=== PATIENT | male | born 1945 | race Two or more races ===

== ENCOUNTER 2024-07-08 12:10 | Inpatient (IN) | payer MEDICARE ==
[~2024-07-08] VITALS: Ht 170.2 cm; Wt 71.6 kg
--- NOTE | 2024-07-08 13:01 | ED.PDOC ---
History of Present Illness(SKN HPI Comments 79 y.o male with PMH of DM, HTN and colon cancer, presents to the ED for an evaluation of a wound check. 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 Daughter reports patient was seen by steam conditioner filling 2 days ago and was placed on antibiotics but states no further progressive care was instated yet. Patient has a home health nurse who came by today and recommended patient to come into the ED for further wound management. Patient presents with new ulcer to right 2-3rd toes, has yellow discharge with discoloration to the dorsum region. Patient complains of 6/10 pain to the whole right foot associated with swelling. No fever or chills reported. Chief Complaint: Wound Check Time Seen by MD: 12:36 History of Present Illness: Nurses Notes, Medications, Allergies Allergies: Coded Allergies: NO KNOWN ALLERGIES (Unverified , 07/08/24) Information Source: Patient, Relative (daughter ) Mode of Arrival: Wheelchair Severity: Moderate Timing: Came on: Gradually Duration: Since onset Location: Foot (right ) Mechanism: Preceding Wound Wound Type: Other Tetanus: UTD History of: Diabetes Associated Signs and Symptoms: Swelling, Pain, Other (right foot discoloration ) Past Medical History PAST MEDICAL HISTORY: Cancer (colon ), DM, HTN Family History Family History: Reviewed,noncontributory to illness Social History Smoker: Non-Smoker Alcohol: Denies ETOH Use Drugs: Denies Drug Use Lives In: Home Constitutional: denies: chills, diaphoresis, fatigue, fever, malaise, sweats, weakness, others EENTM: denies: blurred vision, double vision, ear bleeding, ear discharge, ear drainage, ear pain, ear ringing, eye pain, eye redness, hearing loss, mouth pain, mouth swelling, nasal discharge, nose bleeding, nose congestion, nose pain, photophobia, tearing, throat pain, throat swelling, voice changes, others Respiratory: denies: cough, hemoptysis, orthopnea, SOB at rest, shortness of breath, SOB with excertion, stridor, wheezing, others Cardiovascular: denies: chest pain, dizzy spells, diaphoresis, Dyspnea on exer tion, edema, irregular heart beat, left arm pain, lightheadedness, palpitations, PND, syncope, others Gastrointestinal: denies: abdomen distended, abdominal pain, blood streaked bowels, constipated, diarrhea, dysphagia, difficulty swallowing, hematemesis, melena, nausea, poor appetite, poor fluid intake, rectal bleeding, rectal pain, vomiting, others Genitourinary: denies: burning, dysuria, flank pain, frequency, hematuria, incontinence, penile discharge, penile sore, pain, testicle pain, testicle swelling, urgency, others Neurological: denies: dizziness, fainting, headache, left sided numbness, left sided weakness, numbness, paresthesia, pre-existing deficit, right sided numbness, right sided weakness, seizure, speech problems, tingling, tremors, weakness, others Musculoskeletal: denies: back pain, gout, joint pain, joint swelling, muscle pain, muscle stiffness, neck pain, others Integumetry: reports: wounds (right foot wound, discoloration ); denies: bruises, change in color, change in hair/nails, dryness, laceration, lesions, lumps, rash, others Allergic/Immunocompromised: denies: Difficulty Healing, Frequent Infections, Hives, Itching, others Hematologic/Lymphatic: denies: anemia, blood clots, easy bleeding, easy bruising, swollen glands, others Endocrine: denies: excessive hunger, excessive sweating, excessive thirst, excessive urination, flushing, intolerance to cold, intolerance to heat, unexplained weight gain, unexplained weight loss, others Psychiatric: denies: anxiety, bipolar disorder, depression, hopeless, panic disorder, schizophrenia, sleepless, suicidal, others All Other Systems: Reviewed and Negative Physical Exam General Appearance: Moderate Distress HEENT: Normal ENT Inspection, Pharynx Normal, TMs Normal Neck: Full Range of Motion, Non-Tender, Normal, Normal Inspection Respiratory: Chest Non-Tender, Lungs Clear, No Accessory Muscle Use, No Respiratory Distress, Normal Breath Sounds Cardiovascular: No Edema, No JVD, No Murmur, No Gallop, Normal Peripheral Pulses, Regular Rate/Rhythm Breast Exam: Deferred Gastrointestinal: No Organomegaly, Non Tender, No Pulsatile Mass, Normal Bowel Sounds, Soft Genitalia: Deferred Pelvic: Deferred Rectal: Deferred Extremities: Decreased range of motion (Right lower extremity) Musculoskeletal : Apperance: Normal Neurologic: Alert, No Motor Deficits, No Sensory Deficits Cerebellar Function: NOT DONE Reflexes: NOT DONE Skin: Wounds (Right foot dark swollen) Peripheral Pulses: 3+ Radial (R), 3+ Radial (L) Lymphatic: No Adenopathy Was a procedure done? Was a procedure done?: No Differential Diagnosis (INTG) Differential Diagnosis: Cellulitis, Fracture Differential Diagnosis: Gangrene, Osteomyelitis Differential Diagnosis: Osteomyelitis X-Ray, Labs, Meds, VS Vital Signs Date Time Temp Pulse Resp B/P (MAP) Pulse Ox O2 Delivery O2 Flow Rate FiO2 07/08/24 13:25 98.1 83 17 113/63 (80) 96 98.1 07/08/24 13:25 83 17 96 Room Air* 0 21 07/08/24 12:38 97.8 58 16 127/56 (79) 99 Lab Test 07/08/24 13:45 Range/Units White Blood Count 9.8 4.4-10.8 10^3/uL Red Blood Count 3.43 L 4.5-5.90 10^6/uL Hemoglobin 11.6 L 13.5-17.5 g/dL Hematocrit 34.4 L 41.0-53.0 % Mean Corpuscular Volume 100.3 H 80.0-100.0 fL Mean Corpuscular Hemoglobin 33.9 H 28.0-32.0 pg Mean Corpuscular Hemoglobin Concent 33.8 32.0-36.0 g/dL Red Cell Distribution Width 21.1 H 11.8-14.3 % Platelet Count 110 L 140-450 10^3/uL Mean Platelet Volume 8.5 6.9-10.8 fL Neutrophils (%) (Auto) 81.0 H 37.0-80.0 % Lymphocytes (%) (Auto) 8.7 L 10.0-50.0 % Monocytes (%) (Auto) 9.6 0.0-12.0 % Eosinophils (%) (Auto) 0.2 0.0-7.0 % Basophils (%) (Auto) 0.5 0.0-2.0 % Neutrophils # (Auto) 7.9 1.6-8.6 10 ^3/uL Lymphocytes # (Auto) 0.8 0.4-5.4 10 ^3/uL Monocytes # (Auto) 0.9 0-1.3 10 ^3/uL Eosinophils # (Auto) 0 0-0.8 10 ^3/uL Basophils # (Auto) 0 0-0.2 10 ^3/uL Nucleated Red Blood Cells 0.0 % Platelet Estimate Decreased Anisocytosis (manual) Slight Macrocytosis Slight Sodium Level 133 L 136-145 mmol/L Potassium Level 3.7 3.5-5.1 mmol/L Chloride Level 100 98-107 mmol/L Carbon Dioxide Level 24 20-31 mmol/L Anion Gap 9 5-15 Blood Urea Nitrogen 20 9-23 mg/dL Creatinine 1.01 0.700-1.30 mg/dL Glomerular Filtration Rate Calc 75 >90 mL/min BUN/Creatinine Ratio 19.8 10.0-20.0 Serum Glucose 239 H 74-106 mg/dL Lactic Acid Level 3.0 *H 0.4-2.0 mmol/L Calcium Level 9.4 8.7-10.4 mg/dL Troponin I High Sensitivity 5 </=54 ng/L Current Medications Medications (Trade) Dose Ordered Sig/Jasen Route Start Time Stop Time Status Last Admin Sodium Chloride 1,000 ml @ 1,000 mls/hr Q1H ONCE IV 07/08/24 13:45 07/08/24 14:44 DC 07/08/24 13:50 Piperacillin Sod/ Tazobactam Sod 100 ml @ 100 mls/hr ONCE ONCE IV 07/08/24 13:45 07/08/24 14:44 DC 07/08/24 13:50 Patient alert. Right foot discoloration with swelling. Possible osteomyelitis. Vitals stable. Lactic acid elevated. Blood sugar elevated. Anion gap within normal limits. Establish intravenous access. Was given fluids. Was given Zosyn. Reviewed his history. Explained to the patient. Continue cardiac monitoring. Time of 1ST Reevaluation: 12:54 Reevaluation 1ST: Unchanged Patient Education/Counseling: Diagnosis, Treatment, Prognosis Family Education/Counseling: Diagnosis, Treatment, Prognosis Departure 1 Departure Time of Disposition: 15:46 Impression: Primary Impression: Osteomyelitis Qualified Codes: M86.9 - Osteomyelitis, unspecified Additional Impression: Sepsis Qualified Codes: A41.9 - Sepsis, unspecified organism Disposition: ADMITTED INPATIENT Admit to: Med Surg Condition: Guarded Critical Care Note Critical Care Time?: Yes (45 min-critical care time only) Stability Stability form required: No I personally scribed for ADIN VINSON MD ([email or web address]) on 07/08/24 at 13:01. Electronically submitted by Diana Ramirez ([facility]). ADIN VINSON MD Jul 08, 2024 13:01
[2024-07-08 13:25] VITALS: PULSE 83; RESP 17; O2SAT 96
[2024-07-08] MEDS: SODIUM CHLORIDE 0.9% 1,000 ML IV ONE ×3 (13:46→17:38)
[2024-07-08] MEDS: PIPERACILLIN-TAZOB 3.375GM 100 ML IV ONE (13:50)
[2024-07-08 14:14] LABS: Basophils # (auto) 0 10 ^3/uL (0-0.2); Basophils % (auto) 0.5 % (0.0-2.0); Eosinophils # (auto) 0 10 ^3/uL (0-0.8); Eosinophils % (auto) 0.2 % (0.0-7.0); Hematocrit 34.4 % (41.0-53.0); Hemoglobin 11.6 g/dL (13.5-17.5); Lymphocytes # (auto) 0.8 10 ^3/uL (0.4-5.4); Lymphocytes % (auto) 8.7 % (10.0-50.0); Mean Corpuscular Hemoglobin 33.9 pg (28.0-32.0); Mean Corpuscular Hgb Conc. 33.8 g/dL (32.0-36.0); Mean Corpuscular Volume 100.3 fL (80.0-100.0); Monocytes # (auto) 0.9 10 ^3/uL (0-1.3); Monocytes % (auto) 9.6 % (0.0-12.0); Neutrophils # (auto) 7.9 10 ^3/uL (1.6-8.6); Platelet Count (auto) 110 10^3/uL (140-450); Red Blood Cells 3.43 10^6/uL (4.5-5.90); White Blood Cell 9.8 10^3/uL (4.4-10.8)
[2024-07-08 14:15] LABS: Red Cell Distribution Width 21.1 % (11.8-14.3)
[2024-07-08 14:26] LABS: Chloride 100 mmol/L (98-107); Potassium 3.7 mmol/L (3.5-5.1)
[2024-07-08 14:27] LABS: Anion Gap 9 (5-15); Calcium 9.4 mg/dL (8.7-10.4); Carbon Dioxide 24 mmol/L (20-31)
[2024-07-08 14:32] LABS: BUN/Creatinine Ratio 19.8 (10.0-20.0); Blood Urea Nitrogen 20 mg/dL (9-23)
[2024-07-08 14:33] LABS: Anisocytosis Slight
[2024-07-08 14:34] LABS: Macrocytosis Slight; Platelet Estimate Decreased
[2024-07-08 14:35] LABS: Sodium 133 mmol/L (136-145)
[2024-07-08 14:36] LABS: Glucose 239 mg/dL (74-106)
--- NOTE | 2024-07-08 17:17 | DVH ---
EXAM: CT CT R FOOT WO CONTRAST INDICATION: osteo EXAM DATE: 07/08/2024 04:00 PM COMPARISON: None TECHNIQUE: Multiple axial CT images of the right foot were obtained using bone algorithm. Axial and c oronal reformatting was done. Bone and soft tissue windows were reviewed. Radiation Dose Information: CT Dose: CTDI volume is 7.75 mGy. Dose-length product is 197.56 mGy*cm Findings: Limited evaluation given noncontrast technique. There is no evidence of an acute fracture, dislocation, blastic, or lytic lesions. Mild degenerative changes of the midfoot. No radiopaque foreign bodies. Moderate atherosclerosis. Mild to moderate diffuse soft tissue edema. Small focal fluid collection adjacent to the 1st metatars al head. Impression: 1. Limited evaluation given noncontrast technique. 2. No osseous erosions or acute fractures. 3. Mild to moderate diffuse soft tissue edema. 4. Small focal fluid collection adjacent to the 1st metatarsal head.
--- NOTE | 2024-07-08 17:29 | DVH ---
Right Lower Extremity Arterial Duplex Clinical History: EVAL FLOW TO RLE HX OF ULCER Comparison: None Technique: Duplex Doppler evaluation including color Doppler and spectral/pulsed waveform analysis of the lower extremity arteries was performed. Findings: RIGHT: Peak systolic velocities are as follows: EXPEDITER SERVICE ORDER 90 cm/s Deep femoral 113 cm/s SFA proximal 63 cm/s SFA mid-portion 89 cm/s SFA distal 87 cm/s Popliteal 75 cm/s Posterior tibial 47 cm/s Anterior tibial 159 cm/s Dorsalis pedis 123 cm/s The waveforms are multiphasic with diastolic flow, with the exception of the anterior tibial, posteri or tibial, and dorsalis pedis arteries which are monophasic. Moderrate to marked atherosclerosis. IMPRESSION: 1. Approximately 30-49% stenosis of the anterior tibial artery. 2. Moderate to marked atherosclerosis. REFERENCE VALUES, [facility]) vascular Imaging Lab Criteria: Peak systolic velocity ranges (in cm/sec) are as follows: <150 cm/s - <20 % stenosis 150-200 cm/s - 20-49% stenosis 200-300 cm/s - 50-75% stenosis >300 cm/s -> 75% stenosis
--- NOTE | 2024-07-08 18:28 | DVHHP2 ---
History of Present Illness Reason for Visit: foot wound History of Present Illness 79-year-old male with a past medical history of hypertension diabetes and colon cancer comes to the ED for evaluation of stated wound check patient does have chronic wounds on his foot which he has been dealing with for a couple months comes to the ED for evaluation states that he saw his delivery table feeder 2 days ago and was given antibiotics on an outpatient basis get states that he is still having severe pain in the wound looks like it is filling worse patient was evaluated in the ED recommended for inpatient management and treatment Cardiovascular: HTN Endocrine: Diabetes Review of Systems Constitutional: Yes: Weakness; No: Fever, Chills, Sweats, Malaise, Other Eyes: No: Pain, Vision change, Conjunctivae inflammation, Eyelid inflammation, Other, Redness ENT: No: Ear pain, Ear discharge, Nose pain, Nose discharge, Nose congestion, Mouth pain, Mouth swelling, Throat pain, Throat swelling, Other Respiratory: No: Cough, Dry, Shortness of breath, SOB with excertion, Wheezing, Hemoptysis, Pleuritic Pain, Sputum, Wheezing, Other Cardiovascular: No: Chest Pain, Palpitations, Orthopnea, Paroxysmal Noc. Dyspnea, Edema, Lt Headedness, Other Gastrointestinal: No: Nausea, Vomiting, Abdominal Pain, Diarrhea, Constipation, Melena, Hematochezia, Other Genitourinary: No Dysuria, No Frequency, No Incontinence, No Hematuria, No Retention, No Other Musculoskeletal: leg pain, foot pain; No: other, neck pain, shoulder pain, arm pain, back pain, hand pain Skin: Rash, Lesions; No: Jaundice, Bruising, Other Neurological: No: Weakness, Numbness, Incoordination, Change in speech, Confusion, Seizures, Other Allergies: Coded Allergies: NO KNOWN ALLERGIES (Unverified , 07/08/24) Exam Vital Signs Vital Signs Date Time Temp Pulse Resp B/P (MAP) Pulse Ox O2 Delivery O2 Flow Rate FiO2 07/08/24 16:57 98.5 103 73 114/49 (70) 95 98.5 07/08/24 13:25 Room Air* 0 21 General Appearance: Alert, Oriented X3, Cooperative HEENT: Atraumatic, PERRLA Respiratory: Clear to auscultation, Normal air movement Cardiovascular: Regular rate, Normal S1, Normal S2 Abdominal: Normal bowel sounds, Soft Extremities: No clubbing, No cyanosis Skin: No rashes, No breakdown Neuro: Normal gait, Normal speech Psych/Mental Status: Mood NL Labs/Xrays Labs Test 07/08/24 16:30 07/08/24 13:45 Range/Units Lactic Acid Level 2.8 *H 0.4-2.0 mmol/L White Blood Count 9.8 4.4-10.8 10^3/uL Red Blood Count 3.43 L 4.5-5.90 10^6/uL Hemoglobin 11.6 L 13.5-17.5 g/dL Hematocrit 34.4 L 41.0-53.0 % Mean Corpuscular Volume 100.3 H 80.0-100.0 fL Mean Corpuscular Hemoglobin 33.9 H 28.0-32.0 pg Mean Corpuscular Hemoglobin Concent 33.8 32.0-36.0 g/dL Red Cell Distribution Width 21.1 H 11.8-14.3 % Platelet Count 110 L 140-450 10^3/uL Mean Platelet Volume 8.5 6.9-10.8 fL Neutrophils (%) (Auto) 81.0 H 37.0-80.0 % Lymphocytes (%) (Auto) 8.7 L 10.0-50.0 % Monocytes (%) (Auto) 9.6 0.0-12.0 % Eosinophils (%) (Auto) 0.2 0.0-7.0 % Basophils (%) (Auto) 0.5 0.0-2.0 % Neutrophils # (Auto) 7.9 1.6-8.6 10 ^3/uL Lymphocytes # (Auto) 0.8 0.4-5.4 10 ^3/uL Monocytes # (Auto) 0.9 0-1.3 10 ^3/uL Eosinophils # (Auto) 0 0-0.8 10 ^3/uL Basophils # (Auto) 0 0-0.2 10 ^3/uL Nucleated Red Blood Cells 0.0 % Platelet Estimate Decreased Anisocytosis (manual) Slight Macrocytosis Slight Sodium Level 133 L 136-145 mmol/L Potassium Level 3.7 3.5-5.1 mmol/L Chloride Level 100 98-107 mmol/L Carbon Dioxide Level 24 20-31 mmol/L Anion Gap 9 5-15 Blood Urea Nitrogen 20 9-23 mg/dL Creatinine 1.01 0.700-1.30 mg/dL Glomerular Filtration Rate Calc 75 >90 mL/min BUN/Creatinine Ratio 19.8 10.0-20.0 Serum Glucose 239 H 74-106 mg/dL Calcium Level 9.4 8.7-10.4 mg/dL Troponin I High Sensitivity 5 </=54 ng/L Assessment/Plan Assessment/Plan Admit to [facility] Suspected diabetic foot ulcer Rule out osteomyelitis CT scan of the foot was done lots of soft tissue swelling and edema present No acute bone lesions noted at this point in time IV antibiotics IV hydration Treat as advanced cellulitis wound care evaluation Possible need for podiatry evaluation As patient may need abscess drainage or debridement Uncontrolled diabetes type 2 Hyperglycemia Insulin sliding scale aggressive IV hydration Signs of acidosis no anion gap at this point in time but elevated lactate History of hypertension monitor for patient's blood pressure Continue home medications for blood pressure management If no home medications p.r.n. medications Plan discussed with: Patient My Orders Orders - ADRY BIRCH MD Procedure Category Date Status Time Vancomycin Per [facility] 07/08/24 Logged Pharmacy 18:30 Piperacillin-Tazob [facility] 07/08/24 Logged 3.375gm (Zosyn 3.375g 22:00 Glucose Blood [facility] 07/08/24 Logged (Accu-Chek Comfort 20:00 Insulin R (Human) [facility] 07/08/24 Logged (Insulin R) 20:00 Dextrose 50% Syringe [facility] 07/08/24 Logged 18:30 Admit ADMIT 07/08/24 Transmitted 18:21 Code Status CODE 07/08/24 Transmitted 18:21 Vital Signs [facility] 07/08/24 In Process 18:21 Review Orders With MACHO 07/08/24 In Process Adm. 18:21 Consistent DIET 07/08/24 Transmitted Carb(Ccho)Diabetes Dinner Sodium Chloride 0.9% [facility] 07/08/24 Logged 18:30 Alum & Mag [facility] 07/08/24 Logged Hydrox-Simethicone 18:30 Docusate Sodium [facility] 07/08/24 Logged Capsule (Colace 18:30 Acetaminophen Tablet [facility] 07/08/24 Logged (Tylenol Tablet) 18:30 Notify Md Of Changes [facility] 07/08/24 In Process From Base 18:21 Advance Directive [facility] 07/08/24 In Process 18:21 Basic Metabolic Panel LAB 07/09/24 Verified 04:00 Urinalysis LAB 07/08/24 Logged 18:21 Complete Blood Count LAB 07/09/24 Verified 04:00 Patient Condition ORDERS 07/08/24 Transmitted 18:21 Allergies [facility] 07/08/24 In Process 18:21 Hydrocodone-Acet [facility] 07/08/24 Logged 5/325mg Tab ([place] 18:30 Ondansetron Hcl [facility] 07/08/24 Logged (Zofran) 18:30 Morphine Sulfate [facility] 07/08/24 Logged Injection 18:30 Notify Md Of Changes [facility] 07/08/24 In Process From Base 18:21 Oxygen By Nasal RT 07/08/24 Transmitted Cannula 18:21 Problem List: (1) Diabetes mellitus type 2 with complications, uncontrolled (2) Osteomyelitis (3) Sepsis Date of Service: Jul 08, 2024 Billing Provider: ADRY BIRCH MD Common Visit Codes: [id number] INP/OBS CARE (HIGH) ADRY BIRCH MD Jul 08, 2024 18:28
[2024-07-08] MEDS ORDERED: DEXTROSE (50%) 50ML SYRG IV PRN (18:30)
[2024-07-08] MEDS ORDERED: ONDANSETRON HCL 4 MG/2 ML VIAL IV PRN (18:30)
[2024-07-08] MEDS ORDERED: VANCOMYCIN PER PHARMACY 0 MG IV SCH (18:30)
[2024-07-08] MEDS ORDERED: MAALOX PLUS or MAALOX 30 ML PO PRN (18:30)
[2024-07-08] MEDS: VANCOMYCIN 1.5GM/300ML 300 ML IV ONE (19:09)
[2024-07-08 19:15] VITALS: PULSE 94; RESP 17; O2SAT 98
[2024-07-08] MEDS: SODIUM CHLORIDE 0.9% 1,000 ML IV SCH (19:51)
[2024-07-08] MEDS: InsuLIN REG 1unit/0.01ml Soln (100units/ml) SC SCH (20:00)
[2024-07-08] MEDS: ACCU-CHEK COMFORT CURVE STRIP VI SCH (20:02)
[2024-07-08] MEDS: PIPERACILLIN-TAZOB 3.375GM 100 ML IV SCH (21:42)
[2024-07-08] MEDS: MORPHINE SULFATE INJ 2 MG/ml SYRG IV PRN (21:42)
[2024-07-08 21:51] LABS: Urine Bacteria None Seen /hpf (None Seen)
[2024-07-08 22:17] LABS: Urine Blood 1+ /uL (Negative); Urine Clarity Clear (Clear); Urine Color Yellow (Yellow); Urine Hyaline Cast FEW /lpf (0 - 2); Urine Mucus FEW (None Seen); Urine Protein, UAD 2+ (Negative); Urine Specific Gravity 1.028 (1.001-1.035); Urine Urobilinogen 3 mg/dL (Negative); Urine WBC 1 /hpf (0 - 3)
[2024-07-08 23:27] VITALS: BP 111/49; PULSE 85; RESP 17; TEMP 98.3; O2SAT 98
[2024-07-08 23:47] VITALS: BP 111/49; PULSE 85; RESP 17; TEMP 98.3; O2SAT 98
[2024-07-09] VITALS (7 sets, daily range): BP systolic 96–144; BP diastolic 53–77; PULSE 45–85; RESP 15–18; TEMP 97.7–98.8; O2SAT 97–99
[2024-07-09] MEDS ORDERED: LOSA-534 PO (00:05)
[2024-07-09] MEDS ORDERED: PERCOT PO (00:05)
[2024-07-09] MEDS ORDERED: ATOR20TA50 PO (00:05)
[2024-07-09] MEDS ORDERED: AMLO1TAB22 PO (00:05)
[2024-07-09] MEDS: VANCOMYCIN 750mg/150ml 150 ML IV SCH (05:11)
[2024-07-09 07:05] LABS: Basophils # (auto) 0 10 ^3/uL (0-0.2); Basophils % (auto) 0.4 % (0.0-2.0); Eosinophils # (auto) 0 10 ^3/uL (0-0.8); Eosinophils % (auto) 0.3 % (0.0-7.0); Hematocrit 31.4 % (41.0-53.0); Hemoglobin 10.7 g/dL (13.5-17.5); Lymphocytes # (auto) 1.1 10 ^3/uL (0.4-5.4); Lymphocytes % (auto) 12.9 % (10.0-50.0); Mean Corpuscular Hemoglobin 33.7 pg (28.0-32.0); Mean Corpuscular Volume 99.1 fL (80.0-100.0); Monocytes # (auto) 0.8 10 ^3/uL (0-1.3); Monocytes % (auto) 9.9 % (0.0-12.0); Neutrophils # (auto) 6.3 10 ^3/uL (1.6-8.6); Neutrophils % (auto) 76.5 % (37.0-80.0); Platelet Count (auto) 87 10^3/uL (140-450); Red Blood Cells 3.17 10^6/uL (4.5-5.90); Red Cell Distribution Width 20.7 % (11.8-14.3); White Blood Cell 8.2 10^3/uL (4.4-10.8)
[2024-07-09 07:15] LABS: Anion Gap 8 (5-15); Carbon Dioxide 22 mmol/L (20-31); Chloride 104 mmol/L (98-107); Potassium 3.8 mmol/L (3.5-5.1)
[2024-07-09 07:17] LABS: Calcium 8.5 mg/dL (8.7-10.4); Sodium 134 mmol/L (136-145)
[2024-07-09 07:21] LABS: BUN/Creatinine Ratio 18.1 (10.0-20.0); Blood Urea Nitrogen 13 mg/dL (9-23); Glucose 84 mg/dL (74-106)
[2024-07-09] MEDS: HYDROcodone-ACET 5/325MG TAB PO PRN (09:00)
[2024-07-09] MEDS: CEFEPIME 1GM/ 50ML 50 ML IV SCH (13:32)
--- NOTE | 2024-07-09 17:42 | DVH ---
EXAM: MRI MRI R FOOT WO CONTRAST HISTORY: rule out osteomyelitis COMPARISON: CT CT R FOOT WO CONTRAST on DOS: 07/08/24 TECHNIQUE: Multiplanar, multisequence MRI of the right foot was performed. FINDINGS: Bone marrow edema is seen in 2nd phalanges and metatarsal head. Mild bone marrow edema noted in the 1st metatarsal head. Diffuse subcutaneous edema noted surrounding the 2nd toe. No drainable fluid col lection noted. Chronic appearing marginal erosions are seen in the medial aspect of the 1st metatarsal head with cor ticated edges likely related to gout or hallux valgus deformity. There is mild 1st MTP joint osteoart hritis. No significant joint effusion. Severe fluid distention of the extensor hallucis longus tendon sheath. Mild fluid distention of the flexor hallucis tendon sheath noted. Moderate fluid distention of the 2nd extensor and flexor tendon sheaths. There is fluid distention of the flexor tendon sheaths in midfoot nodular thickening and sig nal alteration of the plantar fascia in hindfoot near calcaneal insertion measuring approximately 1.6 cm in length , 0.7 cm in craniocaudal and 1 cm in transverse compatible with plantar fibroma. Moderate plantar and interosseous musculature edema. IMPRESSION: 1. Findings suggestive of 2nd toe osteomyelitis with involvement of the phalanges metatarsal head. Th ere is severe bone marrow edema in the distal phalanx and moderate subcutaneous edema /cellulitis of the 2nd toe noted. No significant joint effusion or drainable fluid collection. There is tenosynoviti s of the 2nd toe flexor and extensor tendons. Infectious tenosynovitis suspected. 2. Moderate fluid distention of the common flexor tendon sheath in midfoot which may reflect infectio us or inflammatory tenosynovitis. 3. Severe fluid distention of the flexor hallucis longus tendon sheath at the level of the toe. 4. Chronic erosions of medial cortex of the 1st metatarsal head likely related to gout or hallux valg us deformity. There is mild underlying bone marrow edema but no definite acute cortical erosion seen to indicate acute osteomyelitis. Further evaluation 3-phase bone scan could be completed if clinical ly warranted. 5. 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
[2024-07-09] MEDS: VANCOMYCIN 750MG VIAL 750 MG in D5W 5% 250 ML IV SCH (20:23)
--- NOTE | 2024-07-09 21:08 | DVHPNRES ---
Progress Note Date Seen: Jul 09, 2024 Resident Creating Document: COREY HADLEY RESIDENT Medical Necessity Reason Pt with a Central, PICC or Fol: No Medical Necessity Reason Diabetic foot ulcer Diabetic diabetes colon cancer Subjective Review of Systems This is an 79-year-old male with a past medical history of hypertension, type II diabetes and colon cancer presented to ED for evaluation right foot wound. According to the patient, he has been dealing with chronic wounds for couple of months. He saw his treasury accountant 2 days ago and was given antibiotics on an outpatient basis. Patient said he did not see any improvement, but looks to be getting worse. Thus he presented here for re-evaluation. In the ED, initial vitals were temperature 97.8, pulse initially 58--> 103, Respiratory 16 and blood pressure of 127 /56. WBC was unremarkable, chemistry reveals sodium of 134, lactic acid was elevated 3.0-->2.8. CT of the foot revealed 1. Limited evaluation given noncontrast technique. Mild to moderate diffuse soft tissue edema. Small focal fluid collection adjacent to the 1st metatarsal head. Constitutional: Denies fever no chills no feeling of malaise HEENT: Denies headache, ear pain, ear discharges, conjunctivitis, nasal discharge throat pain Cardiovascular: Denies chest pain, palpitation, orthopnea, PND, or pedal edema Respiratory: Denies shortness of breath, cough cough, sputum production, hemoptysis, GI: Denies abdominal pain, nausea, vomiting, diarrhea, hematemesis, hematochezia, colostomy bag present : Denies frequency, urgency, hematuria, Endocrine: Denies unintentional weight gain or weight loss, feeling of hot flashes, Noe: Denies easy bruising, bleeding disorders, epistaxis Musculoskeletal: right foot pain Psych: No evidence of depression, sofia, suicidal ideation Past Medical history: Type 2 diabetes, hypertension, colon cancer status post chemotherapy in remission Past surgery: None Family history: Noncontributory Social history: Used to drink used to smoke stopped about 45 years ago at the age of 89, 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 Objective vital signs Vital Sign Date Time Temp Pulse Resp B/P (MAP) Pulse Ox O2 Delivery O2 Flow Rate FiO2 07/09/24 16:52 97.7 67 18 119/77 (91) 99 97.7 07/09/24 08:00 Room Air* 0 21 Total Intake and Output 07/08/24 07/08/24 07/09/24 15:00 23:00 07:00 Intake Total 325 ml Output Total 250 ml Balance 325 ml -250 ml medications Current Medications Medications Dose Ordered Sig/Jasen Route Start Time Stop Time Status Last Admin Dose Admin Vancomycin HCl 0 ml @ 0 mls/hr UD IV 07/08/24 18:30 Diagnostic Test (Pha) 1 strip IQ4HR 07/08/24 20:00 07/09/24 20:38 1 STRIP Insulin Human Regular IQ4HR SC 07/08/24 20:00 07/09/24 20:49 4 UNITS Dextrose 50 ml UD PRN IV 07/08/24 18:30 Sodium Chloride 1,000 ml @ 100 mls/hr Q10H IV 07/08/24 18:30 07/09/24 15:40 100 MLS/HR Al Hydrox/Mg Hydrox/Simethicone 30 ml Q6HP PRN PO 07/08/24 18:30 Docusate Sodium 100 mg BIDPRN PRN PO 07/08/24 18:30 Acetaminophen 650 mg Q6HP PRN PO 07/08/24 18:30 Acetaminophen/ Hydrocodone Bitart 1 tab Q4HP PRN PO 07/08/24 18:30 07/09/24 09:00 1 TAB Ondansetron HCl 4 mg Q4HP PRN IV 07/08/24 18:30 Morphine Sulfate 2 mg Q4HPRN PRN IV 07/08/24 18:30 07/08/24 21:42 2 MG Cefepime HCl 50 ml @ 12.5 mls/hr Q8HR IV 07/09/24 14:00 07/09/24 13:32 12.5 MLS/HR Vancomycin HCl 750 mg/Dextrose 250 ml @ 250 mls/hr Q12H IV 07/09/24 18:00 07/09/24 20:23 250 MLS/HR Examination General examination- Not in acute distress HEENT: PEERLA, no acute nasal discharge Chest: S1-S2 audible, rate and rhythm regular, no murmur Lung: CTAB, no wheeze or rhonchi Abdomen: Nondistend, BS+, nontenderness, no organomegaly, Colostomy bag present Musculoskeletal: no acute joint swelling or tenderness Extremity: foot edema, open would in second phalange right foot, elevated Neurological: cranial nerves intact, no acute dysarthria or dysphagia Psychiatry-- Normal mood and affect Skin- skin around the wound erythematous and discoloration (right foot) laboratory and microbiology Laboratory Tests 07/09/24 06:15 Test 07/09/24 06:15 Range/Units Serum Glucose 84 # 74-106 mg/dL Microbiology Date/Time Source Procedure Growth Status 07/08/24 13:45 Blood Blood Culture - Preliminary NO GROWTH AFTER 24 HOURS OF INCUBATION. Resulted Problem List/Assessment/Plan Problem List/Assessment/Plan Diabetic foot ulcer ( Right foot); rule out osteomyelitis --> CT right foot: Mild to moderate diffuse soft tissue edema,Small focal fluid collection adjacent to the 1st metatarsal head. --> Wound culture --> Continue broad spectrum antibiotics (Vancomycin, cefepime) --> Get MRI --> Fugitive Investigator consult Type 2 diabetes mellitus --> Hgb 1ac: 6.8 -->Insulin --> maintain good glycemic index Hypertension --> Amlodipine --> Losartan History of colon cancer --> Currently on capacitabine --> Just completed 5th session of chemotherapy infusion --> Colostomy bag present Mild hyponatremia --> Na: 134 --> Monitor Lactic acidosis --> Lactic acid: 3.0--> 2.8 --> repeat lab in AM --> Monitor Code status: Full Goal of care discussed for more than 35 minutes Case and plan discussed with Dr. Elizalde Plan discussed with: Patient, Daughter, Son My Orders My Orders Orders - COREY HADLEY Procedure Category Date Status Time Hemoglobin A1c LAB 07/10/24 Verified 04:00 Drug Screen LAB 07/09/24 Logged 08:51 Mri R Foot Wo Contrast MRI 07/09/24 Resulted 15:40 Date of Service: Jul 09, 2024 Billing Provider: CRISTIHAN GEORGES MD Common Visit Codes: [id number] INP/OBS CARE(HIGH) COREY HADLEY Jul 09, 2024 21:08 CRISTHIAN GEORGES MD Jul 11, 2024 23:18 JESSICA ALFONSO MD Jul 12, 2024 04:15
[2024-07-10] VITALS (9 sets, daily range): BP systolic 111–157; BP diastolic 58–75; PULSE 70–82; RESP 14–18; TEMP 97.6–98.6; O2SAT 95–99
[2024-07-10] MEDS: VANCOMYCIN 750MG VIAL 750 MG in D5W 5% 250 ML IV SCH (10:41)
[2024-07-10 11:45] LABS: Anion Gap 8 (5-15); Carbon Dioxide 21 mmol/L (20-31); Chloride 105 mmol/L (98-107); Potassium 3.7 mmol/L (3.5-5.1)
[2024-07-10 11:51] LABS: BUN/Creatinine Ratio 22.7 (10.0-20.0); Blood Urea Nitrogen 15 mg/dL (9-23)
[2024-07-10 11:53] LABS: Calcium 8.4 mg/dL (8.7-10.4); Glucose 108 mg/dL (74-106); Sodium 134 mmol/L (136-145)
[2024-07-10] MEDS ORDERED: LOPERAMIDE HCL 2 MG CAP/TAB PO PRN (15:15)
--- NOTE | 2024-07-10 16:55 | DVHPNRES ---
Progress Note Date Seen: Jul 10, 2024 Resident Creating Document: COREY HADLEY RESIDENT Medical Necessity Reason Pt with a Central, PICC or Fol: No Medical Necessity Reason Osteomyelitis of the right foot Subjective Review of Systems Patient is seen and examined today. He has no new complaints. Right foot wound is dressed in a white guaze with small amount of drainage at the bottom of the foot. MRI showed osteomyelitis of the 2nd toe on the right. An order was placed for freight agent consult. Pending his plan. Patient denied any fever, chills,cough or shortness of breath. However, his children noticed increased bowel movement because his colostomy bag is getting full quickly. Will check him for C. diff. Objective vital signs Vital Sign Date Time Temp Pulse Resp B/P (MAP) Pulse Ox O2 Delivery O2 Flow Rate FiO2 07/10/24 13:00 98.0 74 16 136/67 (90) 97 98.0 07/10/24 08:00 Room Air* 0 21 Total Intake and Output 07/09/24 07/09/24 07/10/24 15:00 23:00 07:00 Intake Total 340 ml 770 ml 150 ml Output Total 100 ml Balance 340 ml 670 ml 150 ml medications Current Medications Medications Dose Ordered Sig/Jasen Route Start Time Stop Time Status Last Admin Dose Admin Vancomycin HCl 0 ml @ 0 mls/hr UD IV 07/08/24 18:30 Diagnostic Test (Pha) 1 strip IQ4HR 07/08/24 20:00 07/10/24 12:33 1 STRIP Insulin Human Regular IQ4HR SC 07/08/24 20:00 07/10/24 12:51 16 UNITS Dextrose 50 ml UD PRN IV 07/08/24 18:30 Sodium Chloride 1,000 ml @ 100 mls/hr Q10H IV 07/08/24 18:30 07/10/24 10:52 100 MLS/HR Al Hydrox/Mg Hydrox/Simethicone 30 ml Q6HP PRN PO 07/08/24 18:30 Docusate Sodium 100 mg BIDPRN PRN PO 07/08/24 18:30 Acetaminophen 650 mg Q6HP PRN PO 07/08/24 18:30 Acetaminophen/ Hydrocodone Bitart 1 tab Q4HP PRN PO 07/08/24 18:30 07/10/24 14:46 1 TAB Ondansetron HCl 4 mg Q4HP PRN IV 07/08/24 18:30 Morphine Sulfate 2 mg Q4HPRN PRN IV 07/08/24 18:30 07/10/24 06:41 2 MG Cefepime HCl 50 ml @ 12.5 mls/hr Q8HR IV 07/09/24 14:00 07/10/24 14:45 12.5 MLS/HR Vancomycin HCl 750 mg/Dextrose 250 ml @ 250 mls/hr Q12H IV 07/10/24 08:30 07/10/24 10:41 250 MLS/HR Loperamide HCl 2 mg PRN PRN PO 07/10/24 15:15 Examination General examination- Not in acute distress. right foot is dress and elevated HEENT: PEERLA, no acute nasal discharge Chest: S1-S2 audible, rate and rhythm regular, no murmur Lung: CTAB, no wheeze or rhonchi Abdomen: Nondistended, BS+, nontender, no organomegaly; Colostomy bag present Musculoskeletal: no acute joint swelling or tenderness Extremity:left foot is fine. Right foot with diabetic Neurological: No focal deficit Psychiatry-- Normal mood and affect Skin- no acute rash or purpura laboratory and microbiology Laboratory Tests 07/10/24 07:00 07/09/24 06:15 Test 07/10/24 07:00 Range/Units Serum Glucose 108 H 74-106 mg/dL Microbiology Date/Time Source Procedure Growth Status 07/09/24 13:35 Foot Gram Stain Pending Resulted 07/09/24 13:35 Foot Wound Culture - Preliminary Resulted 07/08/24 13:45 Blood Blood Culture - Preliminary NO GROWTH AFTER 48 HOURS OF INCUBATION. Resulted Labs and/or images reviewed: Labs reviewed by me, Image(s) reviewed by me Problem List/Assessment/Plan Problem List/Assessment/Plan Sepsis due to osteomyelitis likely due to diabetic foot ulcer --> CT right foot: Mild to moderate diffuse soft tissue edema, small focal fluid collection adjacent to the 1st metatarsal head. --> Wound culture: Pending --> Continue broad spectrum antibiotics (Vancomycin, cefepime) --> MRI: positive osteomyelitis --> Procurement Accountant consulted--> Pending Type 2 diabetes mellitus --> Hgb 1ac: 6.8 -->Insulin --> maintain good glycemic index Hypertension --> Amlodipine --> Losartan History of colon cancer s/p colectomy --> Currently on capecitabine --> Just completed 5th session of chemotherapy infusion ---> colostomy bag present in the abdomen Diarrhea --> rule out C.diff --> Get stool for c.diff Mild hyponatremia --> Na: 134 --> Monitor Lactic acidosis --> Lactic acid: 3.0--> 2.8 --> repeat lab in AM --> Monitor Code status: Full Goal of care discussed for 20 minutes Case and plan discussed with Dr. Alfonso Plan discussed with: Patient, Daughter, Other (Nurse) My Orders My Orders Orders - COREY HADLEY Procedure Category Date Status Time Loperamide Capsule PHA 07/10/24 In Process (Imodium Capsule) 15:15 Clostridium Difficile DERRICK 07/10/24 Uncollected Toxin 15:38 Addendum Addendum Addendum I was physically present for the michaud portions of the service provided to patient by THE RESIDENT. I have reviewed the documentation, discussed the case with resident and agree with the resident's documentation except as noted. Also the patient's clinical case was discussed with the patient's nurse. This medical document was created using an electronic medical record system with computerized dictation system. Although this document has been carefully reviewed, there might still be some phonetic and typographical errors. These areas are purely typographical due to imperfections of the software programs, and do not reflect any compromise in the patient's medical care. Late signature. Date of Service: Jul 10, 2024 Billing Provider: JESSICA ALFONSO MD Common Visit Codes: [id number] INP/OBS CARE(HIGH) Secondary Visit Codes: [id number] CARE PLAN 30 MINUTES (20 minutes) COREY HADLEY Jul 10, 2024 16:55 JESSICA ALFONSO MD Jul 12, 2024 04:17
[2024-07-11] VITALS (7 sets, daily range): BP systolic 114–166; BP diastolic 67–74; PULSE 68–75; RESP 16–18; TEMP 98–98.8; O2SAT 94–98
[2024-07-11 06:35] LABS: Basophils # (auto) 0 10 ^3/uL (0-0.2); Basophils % (auto) 0.3 % (0.0-2.0); Eosinophils # (auto) 0 10 ^3/uL (0-0.8); Eosinophils % (auto) 0.7 % (0.0-7.0); Hematocrit 29.4 % (41.0-53.0); Hemoglobin 10.1 g/dL (13.5-17.5); Lymphocytes # (auto) 0.9 10 ^3/uL (0.4-5.4); Mean Corpuscular Hgb Conc. 34.4 g/dL (32.0-36.0); Mean Corpuscular Volume 98.7 fL (80.0-100.0); Monocytes # (auto) 0.4 10 ^3/uL (0-1.3); Monocytes % (auto) 6.7 % (0.0-12.0); Neutrophils # (auto) 5.1 10 ^3/uL (1.6-8.6); Neutrophils % (auto) 78.3 % (37.0-80.0); Platelet Count (auto) 106 10^3/uL (140-450); Red Blood Cells 2.98 10^6/uL (4.5-5.90); Red Cell Distribution Width 20.2 % (11.8-14.3); White Blood Cell 6.5 10^3/uL (4.4-10.8)
[2024-07-11] MEDS ORDERED: hydrALAZINE HCL 20 MG/ML VL IV PRN (12:30)
[2024-07-11] MEDS: LOSARTAN POTASSIUM 50 MG TAB PO ONE (12:52)
--- NOTE | 2024-07-11 13:30 | DVHPNRES ---
Progress Note Date Seen: Jul 11, 2024 Resident Creating Document: ISABEL CRAFT RESIDENT Medical Necessity Reason Pt with a Central, PICC or Fol: No Subjective Review of Systems Patient is seen and examined today. He has no new complaints. Right foot wound is dressed in a white guaze with small amount of drainage at the bottom of the foot. Patient denied any fever, chills,cough or shortness of breath. Pending stool cultures and C diff due to increased exchanges of colostomy bags Pending podiatry follow-up continue IV antibiotics Objective vital signs Vital Sign Date Time Temp Pulse Resp B/P (MAP) Pulse Ox O2 Delivery O2 Flow Rate FiO2 07/11/24 12:52 166/70 07/11/24 12:21 98.0 75 18 96 98.0 07/11/24 08:00 Room Air* 0 21 Total Intake and Output 07/10/24 07/10/24 07/11/24 15:00 23:00 07:00 Intake Total 780 ml 770 ml 150 ml Output Total 1050 ml 90 ml Balance 780 ml -280 ml 60 ml medications Current Medications Medications Dose Ordered Sig/Jasen Route Start Time Stop Time Status Last Admin Dose Admin Vancomycin HCl 0 ml @ 0 mls/hr UD IV 07/08/24 18:30 Diagnostic Test (Pha) 1 strip IQ4HR 07/08/24 20:00 07/11/24 12:14 1 STRIP Insulin Human Regular IQ4HR SC 07/08/24 20:00 07/11/24 11:31 8 UNITS Dextrose 50 ml UD PRN IV 07/08/24 18:30 Al Hydrox/Mg Hydrox/Simethicone 30 ml Q6HP PRN PO 07/08/24 18:30 Docusate Sodium 100 mg BIDPRN PRN PO 07/08/24 18:30 Acetaminophen 650 mg Q6HP PRN PO 07/08/24 18:30 Acetaminophen/ Hydrocodone Bitart 1 tab Q4HP PRN PO 07/08/24 18:30 07/11/24 10:57 1 TAB Ondansetron HCl 4 mg Q4HP PRN IV 07/08/24 18:30 Morphine Sulfate 2 mg Q4HPRN PRN IV 07/08/24 18:30 07/10/24 21:59 2 MG Cefepime HCl 50 ml @ 12.5 mls/hr Q8HR IV 07/09/24 14:00 07/11/24 05:20 12.5 MLS/HR Vancomycin HCl 750 mg/Dextrose 250 ml @ 250 mls/hr Q12H IV 07/10/24 08:30 07/11/24 08:54 250 MLS/HR Loperamide HCl 2 mg PRN PRN PO 07/10/24 15:15 Losartan Potassium 50 mg DAILY PO 07/12/24 10:00 Amlodipine Besylate 5 mg DAILY PO 07/12/24 10:00 Hydralazine HCl 10 mg Q6HP PRN IV 07/11/24 12:30 Examination General: Awake, alert, comfortable appearing, in no acute distress. HEENT: Head is normocephalic and atraumatic. Pupils are equal, round, and reactive to light. Extraocular muscles are intact. No nasal discharge. No facial trauma. Intraoral exam shows moist mucous membranes with no tonsillar enlargement or exudate. Neck: Supple with no cervical lymphadenopathy No meningismus. No goiter. Heart: Regular rate without murmur, rub, or gallop. Lungs: Equal breath sounds bilaterally with no wheezing, rales, or rhonchi. There is no chest wall tenderness or instability. Abdomen: No external sign of injury. Bowel sounds are present. Abdomen is soft, nontender. No rebound, no guarding, no rigidity. There are no palpable masses. There is no flank pain on exam. Colostomy bag present Extremities: Right foot with ulcer between 1st and 2nd toe Neurologic: Cranial nerves II-XII intact without motor, sensory, or cerebellar deficit, no asterixis. laboratory and microbiology Laboratory Tests 07/11/24 06:01 07/10/24 07:00 Test 07/10/24 07:00 Range/Units Serum Glucose 108 H 74-106 mg/dL Microbiology Date/Time Source Procedure Growth Status 07/09/24 13:35 Foot Gram Stain - Final Resulted 07/09/24 13:35 Foot Wound Culture - Preliminary Resulted 07/08/24 13:45 Blood Blood Culture - Preliminary NO GROWTH AFTER 48 HOURS OF INCUBATION. Resulted Labs and/or images reviewed: Labs reviewed by me, Image(s) reviewed by me Problem List/Assessment/Plan Problem List/Assessment/Plan Sepsis due to osteomyelitis likely due to diabetic foot ulcer --> CT right foot: Mild to moderate diffuse soft tissue edema, small focal fluid collection adjacent to the 1st metatarsal head. --> Wound culture: Pending --> Continue broad spectrum antibiotics (Vancomycin, cefepime) --> MRI: positive osteomyelitis --> Translation Director consulted--> Pending Type 2 diabetes mellitus --> Hgb 1ac: 6.8 -->Insulin --> maintain good glycemic index Hypertension --> Amlodipine --> Losartan History of colon cancer s/p colectomy --> Currently on capecitabine --> Just completed 5th session of chemotherapy infusion ---> colostomy bag present in the abdomen Diarrhea --> rule out C.diff --> Get stool for c.diff Mild hyponatremia --> Na: 134 --> Monitor Lactic acidosis --> Lactic acid: 3.0--> 2.8 --> repeat lab in AM --> Monitor Code status: Full code Goal of care discussed for more than 35 minutes Case and plan discussed with Dr. Alfonso Plan discussed with: Patient, Other (RN) My Orders My Orders Orders - ISABEL CRAFT RESIDENT Procedure Category Date Status Time Npo After Midnight DIET 07/11/24 Transmitted Lunch PTPTT LAB 07/12/24 Verified 04:00 Complete Blood Count LAB 07/12/24 Verified 04:00 Basic Metabolic Panel LAB 07/12/24 Verified 04:00 Losartan Tablet PHA 07/12/24 In Process (Cozaar Tablet) 10:00 Amlodipine Tablet PHA 07/12/24 In Process (Norvasc Tablet) 10:00 Hydralazine Injection PHA 07/11/24 In Process (Apresoline Inject 12:30 Addendum Addendum Addendum I was physically present for the michaud portions of the service provided to patient by THE RESIDENT. I have reviewed the documentation, discussed the case with resident and agree with the resident's documentation except as noted. Also the patient's clinical case was discussed with the patient's nurse. This medical document was created using an electronic medical record system with computerized dictation system. Although this document has been carefully reviewed, there might still be some phonetic and typographical errors. These areas are purely typographical due to imperfections of the software programs, and do not reflect any compromise in the patient's medical care. Late signature. Date of Service: Jul 11, 2024 Billing Provider: JESSICA ALFONSO MD Common Visit Codes: [id number] INP/OBS CARE(HIGH) ISABEL CRAFT RESIDENT Jul 11, 2024 13:30 JESSICA ALFONSO MD Jul 12, 2024 04:23
[2024-07-12] VITALS (7 sets, daily range): BP systolic 109–167; BP diastolic 61–73; PULSE 63–103; RESP 17–19; TEMP 97.8–98.2; O2SAT 93–99
[2024-07-12] MEDS: CEFEPIME 1GM/ 50ML 50 ML IV SCH (00:14)
[2024-07-12 08:52] LABS: Basophils # (auto) 0 10 ^3/uL (0-0.2); Basophils % (auto) 0.5 % (0.0-2.0); Eosinophils # (auto) 0.1 10 ^3/uL (0-0.8); Eosinophils % (auto) 0.9 % (0.0-7.0); Hematocrit 30.4 % (41.0-53.0); Hemoglobin 10.4 g/dL (13.5-17.5); Lymphocytes # (auto) 1.1 10 ^3/uL (0.4-5.4); Lymphocytes % (auto) 16.8 % (10.0-50.0); Mean Corpuscular Hemoglobin 33.5 pg (28.0-32.0); Mean Corpuscular Hgb Conc. 34.3 g/dL (32.0-36.0); Mean Corpuscular Volume 97.7 fL (80.0-100.0); Monocytes # (auto) 0.7 10 ^3/uL (0-1.3); Monocytes % (auto) 10.7 % (0.0-12.0); Neutrophils # (auto) 4.7 10 ^3/uL (1.6-8.6); Neutrophils % (auto) 71.1 % (37.0-80.0); Platelet Count (auto) 129 10^3/uL (140-450); Red Blood Cells 3.11 10^6/uL (4.5-5.90); Red Cell Distribution Width 20.1 % (11.8-14.3); White Blood Cell 6.6 10^3/uL (4.4-10.8)
[2024-07-12 09:03] LABS: Chloride 105 mmol/L (98-107); Potassium 3.9 mmol/L (3.5-5.1)
[2024-07-12 09:04] LABS: Anion Gap 6 (5-15); Carbon Dioxide 23 mmol/L (20-31)
[2024-07-12 09:07] LABS: Calcium 8.1 mg/dL (8.7-10.4); Sodium 134 mmol/L (136-145)
[2024-07-12 09:09] LABS: BUN/Creatinine Ratio 14.3 (10.0-20.0); Blood Urea Nitrogen 10 mg/dL (9-23)
[2024-07-12 09:20] LABS: INR 1.13 (0.9-1.15); Partial Thromboplastin Time 32.8 SEC (24.5-34.5); Prothrombin Time 11.9 sec (9.3-11.8)
[2024-07-12 09:34] LABS: Glucose 153 mg/dL (74-106)
[2024-07-12] MEDS: amLODIPine BESYLATE 5 MG TAB PO SCH (10:25)
[2024-07-12] MEDS: LOSARTAN POTASSIUM 50 MG TAB PO SCH (10:25)
[2024-07-12] MEDS: BUPIVACAINE 0.5% P/F INJ 10 ML VIAL ONE ×2 (11:36→12:34)
[2024-07-12] MEDS ORDERED: PROPOFOL 10 MG/ML 20 ML IV ONE (12:17)
[2024-07-12] MEDS ORDERED: fentaNYL CITRATE 100 MCG/2 ML VL ONE (12:17)
[2024-07-12] MEDS ORDERED: MIDAZOLAM HCL 2MG/2ML 2ml VIAL (1mg/ml) ONE (12:17)
[2024-07-12] MEDS ORDERED: DexAMETHasone SOD PHOS 10MG/1ML VIAL INJ ONE (12:17)
--- NOTE | 2024-07-12 12:26 | DVHINCON2 ---
Date Seen: Jul 12, 2024 Reason for Consultation Right foot wound History of Present Illness 79-year-old male with a past medical history of hypertension diabetes and colon cancer comes to the ED for evaluation of stated wound check patient does have chronic wounds on his foot which he has been dealing with for a couple months comes to the ED for evaluation states that he saw his retail project merchandiser 2 days ago and was given antibiotics on an outpatient basis get states that he is still having severe pain in the wound looks like it is filling worse patient was evaluated in the ED recommended for inpatient management and treatment Past Medical History See H&P Past Surgical History See H&P Family History: Patient reports no known family medical history. Allergies: Coded Allergies: NO KNOWN ALLERGIES (Unverified , 07/08/24) Home Meds Reported Medications Atorvastatin Calcium (ATORVASTATIN CALCIUM) 20 Mg Tab, 1 TAB PO DAILY, #30 TAB 5 Refills 07/09/24 Amlodipine Besylate (Amlodipine Besylate) 5 Mg Tab, 5 MG PO DAILY for 30 Days, MG 07/09/24 Losartan Potassium (Losartan Potassium) 50 Mg Tab, 50 MG PO DAILY for 30 Days, MG 07/09/24 Oxycodone W/ Acetaminophen (Percocet 5/325MG) 1 Tab Tb, 1 TAB PO QID, #120 TAB 07/09/24 Current Medications Current Medications Medications (Trade) Dose Ordered Sig/Jasen Route PRN Reason Start Time Stop Time Status Last Admin Losartan Potassium (Cozaar Tablet) 50 mg DAILY PO 07/12/24 10:00 07/12/24 10:25 Amlodipine Besylate (Norvasc Tablet) 5 mg DAILY PO 07/12/24 10:00 07/12/24 10:25 Hydralazine HCl (Apresoline Injection) 10 mg Q6HP PRN IV SBP>160 07/11/24 12:30 Cefepime HCl 50 ml @ 12.5 mls/hr Q8H IV 07/12/24 00:00 07/12/24 07:03 Vital Signs Vital Signs Date Time Temp Pulse Resp B/P (MAP) Pulse Ox O2 Delivery O2 Flow Rate FiO2 07/12/24 10:25 136/68 07/12/24 08:30 97.8 75 17 99 97.8 07/11/24 20:00 Room Air* 0 21 Physical Exam DERMATOLOGIC EXAM: - Skin is dry and cool to the touch dry bilaterally. - Nails 1-5 of the bilateral foot are thickened, discolored, dystrophic, and tender to palpate with subungual debris - Hair loss noted to bilateral feet - right foot puncture wound on the hallux with purulent drainage and surrounding erythema VASCULAR EXAM: - DP and PT pulses are palpable bilaterally. - READING INSTRUCTOR is brisk to all digits. - Feet are cool to touch compared to lower legs bilaterally. NEUROLOGIC EXAM: - Normal light touch sensation to the superficial peroneal, deep peroneal, sural, saphenous, and tibial nerve branches. - Protective sensation is diminished as tested with a 5.07 10g [place] bilaterally. MUSCULOSKELETAL EXAM: - No gross deformities - Muscle strength is 5/5 and active motion is pain-free and symmetrical bilaterally - No pain or crepitation with passive range of motion bilaterally to all major pedal joints Labs/Diagnostic Data Labs Test 07/12/24 12:10 07/12/24 08:42 07/10/24 11:53 07/09/24 06:15 Range/Units White Blood Count 6.6 4.4-10.8 10^3/uL Red Blood Count 3.11 L 4.5-5.90 10^6/uL Hemoglobin 10.4 L 13.5-17.5 g/dL Hematocrit 30.4 L 41.0-53.0 % Mean Corpuscular Volume 97.7 80.0-100.0 fL Mean Corpuscular Hemoglobin 33.5 H 28.0-32.0 pg Mean Corpuscular Hemoglobin Concent 34.3 32.0-36.0 g/dL Red Cell Distribution Width 20.1 H 11.8-14.3 % Platelet Count 129 L 140-450 10^3/uL Mean Platelet Volume 7.9 6.9-10.8 fL Neutrophils (%) (Auto) 71.1 37.0-80.0 % Lymphocytes (%) (Auto) 16.8 10.0-50.0 % Monocytes (%) (Auto) 10.7 0.0-12.0 % Eosinophils (%) (Auto) 0.9 0.0-7.0 % Basophils (%) (Auto) 0.5 0.0-2.0 % Neutrophils # (Auto) 4.7 1.6-8.6 10 ^3/uL Lymphocytes # (Auto) 1.1 0.4-5.4 10 ^3/uL Monocytes # (Auto) 0.7 0-1.3 10 ^3/uL Eosinophils # (Auto) 0.1 0-0.8 10 ^3/uL Basophils # (Auto) 0 0-0.2 10 ^3/uL Nucleated Red Blood Cells 0.0 % Prothrombin Time 11.9 H 9.3-11.8 sec Prothrombin Time INR 1.13 0.9-1.15 Activated Partial Thromboplast Time 32.8 24.5-34.5 SEC Sodium Level 134 L 136-145 mmol/L Potassium Level 3.9 3.5-5.1 mmol/L Chloride Level 105 98-107 mmol/L Carbon Dioxide Level 23 20-31 mmol/L Anion Gap 6 5-15 Blood Urea Nitrogen 10 9-23 mg/dL Creatinine 0.70 0.700-1.30 mg/dL Glomerular Filtration Rate Calc 93 >90 mL/min BUN/Creatinine Ratio 14.3 10.0-20.0 Serum Glucose 153 H 74-106 mg/dL Calcium Level 8.1 L 8.7-10.4 mg/dL Vancomycin Level Trough 19.3 H 5-10 ug/mL Lactic Acid Level 1.1 0.4-2.0 mmol/L Hemoglobin A1c 6.8 H <5.7 % A1C Test 07/08/24 21:30 07/08/24 13:45 Range/Units Urine Color Yellow Yellow Urine Clarity Clear Clear Urine pH 6.0 5.0-9.0 Urine Specific [place] 1.028 1.001-1.035 Urine Protein 2+ H Negative Urine Ketones Negative Negative Urine Blood 1+ H Negative /uL Urine Nitrite Negative Negative Urine Bilirubin Negative Negative Urine Urobilinogen 3 H Negative mg/dL Urine Leukocyte Esterase Negative Negative /uL Urine RBC 9 0 - 3 /hpf Urine WBC 1 0 - 3 /hpf Urine Squamous Epithelial Cells Few <5 /hpf Urine Bacteria None seen None Seen /hpf Urine Hyaline Casts Few 0 - 2 /lpf Urine Mucus Few None Seen Urine Glucose 4+ H Normal mg/dL Platelet Estimate Decreased Anisocytosis (manual) Slight Macrocytosis Slight Troponin I High Sensitivity 5 </=54 ng/L Microbiology Date/Time Source Procedure Growth Status 07/10/24 20:57 Stool Clostridium difficile Toxin Assay - Final Complete 12/6/24 13:35 Foot Gram Stain - Final Resulted 07/09/24 13:35 Foot Wound Culture - Preliminary Resulted 07/08/24 13:45 Blood Blood Culture - Preliminary NO GROWTH AFTER 72 HOURS OF INCUBATION. Resulted Problems(with codes): (1) Sepsis (2) Osteomyelitis (3) Diabetes mellitus type 2 with complications, uncontrolled Plan/Recommendation ASSESSMENT: Patient is a 79-year-old seen on the floor for a worsening right foot wound PLAN: - The patients chart was reviewed, clinical findings were discussed with the patient, the etiologies of the conditions were discussed in detail, and a treatment plan was agreed to at this time, with both oral and written instructions provided. - reviewed MRI showing concern for osteomyelitis - discussed with the patient that we would perform an incision and drainage today to allow the infection to drain out - we will determine level of amputation based off debridement in the amount of bleeding - patient NPO since midnight - patient go to the OR today All questions were answered and concerns addressed to the patient's satisfaction. The patient was given the phone number to the clinic and was told how to make contact with the clinic should any concerns or questions arise. Patient understands that if any questions or concerns arise prior to the next appointment, we should be contacted immediately. FOLLOW-UP: We will follow inpatient Plan discussed with: Patient Date of Service: Jul 12, 2024 Billing Provider: AMA CORTES DPM Common Visit Codes: [id number] INP/OBS CARE (MOD) AMA CORTES DPM Jul 12, 2024 12:26
--- NOTE | 2024-07-12 12:56 | DVHOP2 ---
Operative Report - 2 Report Details Date: 07/12/24 Preop Diagnosis: 1. Right foot abscess 2. Right foot cellulitis 3. Right foot diabetic ulcer 4. Right foot osteomyelitis Postop Diagnosis: Same as preop Surgeon: Ama Cortes MD Anesthesiologist: See anesthesia Anesthesia: Mac Consent: The patient was informed of the risks and benefits of the procedure. These include but are not limited to complications of anesthesia, postoperative infection, incomplete relief of symptoms, recurrence of symptoms, damage to blood vessels, nerves and tendons, deep venous thrombosis, pulmonary embolism and possible need for repeat surgery in the future. Complications: None Estimated Blood Loss: Minimal Fluids: See anesthesia Findings: Consistent with diagnosis Indications for Surgery: Worsening right foot wound Name of Procedure Performed 1. Right foot I&D to bone (20893) Procedure Details Procedure Details: PRE-PROCEDURE INFORMATION: In the pre-op holding area, the extremity to be operated on was clearly marked and the patient verified correct laterality of the marking. The patient was transferred to the OR table and placed in a supine position. A timeout was performed in which identification of the correct patient, procedure, location, and materials was done. The right foot and leg were prepped and draped in normal sterile fashion. DESCRIPTION OF PROCEDURE: Attention was directed to the right foot where area of fluctuance was noted. An incision was made over this area and was deepened through blunt dissection. The incision was deepened to the level of abscess and bone. Care was taken to the dissection to avoid any neurovascular and tendinous structures. The incision was deepened to the bone, and the abscess appeared to be purulent fluid consistent with pus. After the abscess was drained, the area was irrigated with 3 L normal saline using cysto tubing. Deep cultures were then obtained from the wound. The area was then inspected and any areas of tracking, especially along the tendons were also drained. The wound was packed with Betadine-soaked gauze and we will need to be closed at a later date. A dry sterile dressing was placed on the surgical extremity. The patient was placed in a postop shoe POSTOPERATIVE INFORMATION: The patient tolerated the above noted procedure and a nesthesia well and was transferred to the PACU with vital signs stable, and vascular status intact with capillary refill intact to all digits. Cultures were taken in the patient will return to the floor for continued IV antibiotics. Patient will return to the OR on Friday for another I&D with possible hallux amputation depending on how looks we will next 48 hours. Condition Good Disposition Still a Patient AMA CORTES DPM Jul 12, 2024 12:56
[2024-07-12] MEDS ORDERED: hydrALAZINE HCL 20 MG/ML VL IV PRN (13:15)
[2024-07-12] MEDS ORDERED: MORPHINE SULFATE 4 MG/ML SYR/VIAL IV PRN (13:15)
[2024-07-12] MEDS ORDERED: MIDAZOLAM HCL 2MG/2ML 2ml VIAL (1mg/ml) IV PRN (13:15)
[2024-07-12] MEDS ORDERED: ePHEDrine SULFATE 50 MG/ML AMP IV PRN (13:15)
[2024-07-12] MEDS ORDERED: HYDROmorphone HCL 2 MG/ML VL/or syr IV PRN (13:15)
[2024-07-12] MEDS: ONDANSETRON HCL 4 MG/2 ML VIAL IV ONE (13:42)
--- NOTE | 2024-07-12 18:03 | DVH ---
EXAM: US RT LOW EXT ART DUPLEX HISTORY: PAD COMPARISON: US RT LOW EXT ART DUPLEX on DOS: 07/08/24 TECHNIQUE: Realtime grayscale and color Doppler ultrasound images of the right lower extremity arter ies with spectral waveform analysis were obtained. FINDINGS: RIGHT: Mild atherosclerotic plaque identified. No hemodynamically significant stenosis noted. Subha l triphasic spectral tracings in the common femoral, deep femoral, superficial femoral, popliteal, po sterior tibial arteries. Monophasic waveform noted in dorsalis pedis artery. Peak systolic velociti es measure up to 122 cm/s. IMPRESSION: 1. No hemodynamically significant stenosis identified. 2. Monophasic waveform in dorsalis pedis artery suggestive no vessel hardening lack of elastic requir ed. REFERENCE VALUES, [facility] ([facility]) vascular Imaging Lab Criteria: Peak systolic velocity ranges (in cm/sec) are as follows: <150 cm/s - <20 % stenosis 150-200 cm/s - 20-49% stenosis 200-300 cm/s - 50-75% stenosis >300 cm/s -> 75% stenosis
--- NOTE | 2024-07-12 18:41 | DVHPNRES ---
Progress Note Date Seen: Jul 12, 2024 Resident Creating Document: COREY HADLEY RESIDENT Medical Necessity Reason Pt with a Central, PICC or Fol: No Medical Necessity Reason Right foot osteomyelitis Subjective Review of Systems Patient is seen and examined today. He was lying in bed has not complaint, other than pain in his right foot. He denies any fever, chills, nausea vomiting Vitals are stable, and CBC is also unremarkable. Patient will be taken to OR today for possibly debridement versus amputation by the medical management specialist Objective vital signs Vital Sign Date Time Temp Pulse Resp B/P (MAP) Pulse Ox O2 Delivery O2 Flow Rate FiO2 07/12/24 17:00 97.8 86 18 167/71 (103) 97 97.8 07/12/24 12:56 Mask 6.0 07/12/24 07:30 21 Total Intake and Output 07/11/24 07/11/24 07/12/24 15:00 23:00 07:00 Intake Total 50 ml 1070 ml 600 ml Output Total 600 ml 800 ml 800 ml Balance -550 ml 270 ml -200 ml medications Current Medications Medications Dose Ordered Sig/Jasen Route Start Time Stop Time Status Last Admin Dose Admin Vancomycin HCl 0 ml @ 0 mls/hr UD IV 07/08/24 18:30 Diagnostic Test (Pha) 1 strip IQ4HR 07/08/24 20:00 07/12/24 17:39 1 STRIP Insulin Human Regular IQ4HR SC 07/08/24 20:00 07/12/24 17:38 8 UNITS Dextrose 50 ml UD PRN IV 07/08/24 18:30 Al Hydrox/Mg Hydrox/Simethicone 30 ml Q6HP PRN PO 07/08/24 18:30 Docusate Sodium 100 mg BIDPRN PRN PO 07/08/24 18:30 Acetaminophen 650 mg Q6HP PRN PO 07/08/24 18:30 Acetaminophen/ Hydrocodone Bitart 1 tab Q4HP PRN PO 07/08/24 18:30 Hold 07/11/24 21:04 1 TAB Ondansetron HCl 4 mg Q4HP PRN IV 07/08/24 18:30 Vancomycin HCl 750 mg/Dextrose 250 ml @ 250 mls/hr Q12H IV 07/10/24 08:30 07/12/24 08:27 250 MLS/HR Losartan Potassium 50 mg DAILY PO 07/12/24 10:00 12/9/24 10:25 50 MG Amlodipine Besylate 5 mg DAILY PO 07/12/24 10:00 07/12/24 10:25 5 MG Hydralazine HCl 10 mg Q6HP PRN IV 07/11/24 12:30 Cefepime HCl 50 ml @ 12.5 mls/hr Q8H IV 07/12/24 00:00 07/12/24 17:21 12.5 MLS/HR Hydromorphone HCl 1 mg Q4HPRN PRN IV 07/12/24 17:15 Examination General: Awake, alert, comfortable appearing, in no acute distress. HEENT: Head is normocephalic and atraumatic. Pupils are equal, round, and reactive to light. Extraocular muscles are intact. No nasal discharge. No facial trauma. Intraoral exam shows moist mucous membranes with no tonsillar enlargement or exudate. Neck: Supple with no cervical lymphadenopathy No meningismus. No goiter. Heart: Regular rate without murmur, rub, or gallop. Lungs: Equal breath sounds bilaterally with no wheezing, rales, or rhonchi. There is no chest wall tenderness or instability. Abdomen: No external sign of injury. Bowel sounds are present. Abdomen is soft, nontender. No rebound, no guarding, no rigidity. There are no palpable masses. There is no flank pain on exam. Colostomy bag present Extremities: Right foot with ulcer between 1st and 2nd toe Neurologic: Cranial nerves II-XII intact without motor, sensory, or cerebellar deficit laboratory and microbiology Laboratory Tests 07/12/24 08:42 Test 07/12/24 08:42 Range/Units Serum Glucose 153 H 74-106 mg/dL Microbiology Date/Time Source Procedure Growth Status 07/10/24 20:57 Stool Clostridium difficile Toxin Assay - Final Complete 07/09/24 13:35 Foot Gram Stain - Final Resulted 07/09/24 13:35 Foot Wound Culture - Preliminary Resulted 07/08/24 13:45 Blood Blood Culture - Preliminary NO GROWTH AFTER 72 HOURS OF INCUBATION. Resulted Problem List/Assessment/Plan Problem List/Assessment/Plan Osteomyelitis likely due to diabetic foot ulcer --> CT right foot: Mild to moderate diffuse soft tissue edema, small focal fluid collection adjacent to the 1st metatarsal head. --> Wound culture: No growth --> Continue broad spectrum antibiotics (Vancomycin, cefepime) --> MRI: positive osteomyelitis -->S/P Right foot I&D to bone --> Patient will return to the OR on Friday for another I&D with possible hallux amputation depending on how looks we will next 48 hours. Type 2 diabetes mellitus --> Hgb 1ac: 6.8 -->Insulin --> maintain good glycemic index Hypertension --> Amlodipine --> Losartan History of colon cancer --> Currently on capacitabine --> Just completed 5th session of chemotherapy infusion --> Colostomy bag present Mild hyponatremia --> Na: 134 --> Monitor Lactic acidosis --> Lactic acid: 3.0--> 2.8 --> repeat lab in AM --> Monitor Code status: Full Goal of care discussed for more than 35 minutes Case and plan discussed with Dr. Elizalde Plan discussed with: Patient My Orders My Orders Orders - COREY HADLEY Procedure Category Date Status Time Initiate Vte MACHO 07/12/24 In Process Prophylaxis 05:41 Rt Low Ext Art Duplex US 07/12/24 Resulted 17:02 Hydromorphone PHA 07/12/24 In Process Injection (Dilaudid 17:15 Dietary Evaluation Review Comments: Advance to 2gNa CCHO-60 diet when out of foot surgery and medically feasible. Expected Outcomes/Goals: controlled DM, healed wounds Date of Service: Jul 12, 2024 Billing Provider: CRISTHIAN GEORGES MD Common Visit Codes: [id number] INP/OBS CARE(HIGH) COREY HADLEY Jul 12, 2024 18:41 CRISTHIAN GEORGES MD Jul 14, 2024 10:16
[2024-07-12] MEDS: HYDROmorphone HCL 2 MG/ML VL/or syr IV PRN (20:37)
[2024-07-13] MEDS ORDERED: CEFEPIME 1GM/ 50ML 50 ML IV SCH
[2024-07-13 01:00] VITALS: BP 126/65; PULSE 72; RESP 18; TEMP 98.3; O2SAT 100
[2024-07-13 05:00] VITALS: BP 101/56; PULSE 63; RESP 18; TEMP 97.8; O2SAT 94
[2024-07-13 07:17] LABS: Basophils # (auto) 0 10 ^3/uL (0-0.2); Eosinophils # (auto) 0 10 ^3/uL (0-0.8); Hematocrit 32.5 % (41.0-53.0); Hemoglobin 11.4 g/dL (13.5-17.5); Lymphocytes # (auto) 0.7 10 ^3/uL (0.4-5.4); Lymphocytes % (auto) 8.3 % (10.0-50.0); Mean Corpuscular Hemoglobin 33.9 pg (28.0-32.0); Mean Corpuscular Hgb Conc. 34.9 g/dL (32.0-36.0); Monocytes # (auto) 0.6 10 ^3/uL (0-1.3); Monocytes % (auto) 6.4 % (0.0-12.0); Neutrophils # (auto) 7.6 10 ^3/uL (1.6-8.6); Neutrophils % (auto) 85.3 % (37.0-80.0); Nucleated Red Blood Cells % 0.1 %; Platelet Count (auto) 148 10^3/uL (140-450); Red Blood Cells 3.35 10^6/uL (4.5-5.90); Red Cell Distribution Width 19.6 % (11.8-14.3); White Blood Cell 8.9 10^3/uL (4.4-10.8)
[2024-07-13 08:57] VITALS: BP 113/62; PULSE 66; RESP 12; TEMP 97.1; O2SAT 95
[2024-07-13] MEDS: HYDROmorphone HCL 2 MG/ML VL/or syr IV PRN (10:03)
[2024-07-13] MEDS: INSULIN LANTUS (GLARGINE) 1 /0.01ml (100units/ml) SC ONE (10:16)
[2024-07-13 14:37] VITALS: BP 123/65; PULSE 65; RESP 14; TEMP 98.2; O2SAT 97
--- NOTE | 2024-07-13 16:31 | DVHPNRES ---
Progress Note Date Seen: Jul 13, 2024 Resident Creating Document: COREY HADLEY RESIDENT Medical Necessity Reason Pt with a Central, PICC or Fol: No Medical Necessity Reason Osteomyelitis of the right foot s/p debridement Subjective Review of Systems Patient is seen and examined today this morning by the bedside He was lying in bed comfortably with his right foot wrapped in bandage. Patient is s/p debridement yesterday by her the saxophone player. Everything went well, no complications reported. Patient will be returning to the OR tomorrow for reexamination and further plan per the results. Patient patient denied any fever, chills, nausea or vomiting use tolerating antibiotics well and has no complaints. Objective vital signs Vital Sign Date Time Temp Pulse Resp B/P (MAP) Pulse Ox O2 Delivery O2 Flow Rate FiO2 07/13/24 15:36 63 15 118/64 07/13/24 14:37 98.2 97 98.2 07/13/24 08:00 Room Air* 0 21 Total Intake and Output 07/12/24 07/12/24 07/13/24 15:00 23:00 07:00 Intake Total 295 ml 300 ml Output Total 400 ml 0 ml Balance 295 ml -100 ml 0 ml medications Current Medications Medications Dose Ordered Sig/Jasen Route Start Time Stop Time Status Last Admin Dose Admin Vancomycin HCl 0 ml @ 0 mls/hr UD IV 07/08/24 18:30 Diagnostic Test (Pha) 1 strip IQ4HR 07/08/24 20:00 07/13/24 15:37 1 STRIP Insulin Human Regular IQ4HR SC 07/08/24 20:00 07/13/24 12:47 4 UNITS Dextrose 50 ml UD PRN IV 07/08/24 18:30 Al Hydrox/Mg Hydrox/Simethicone 30 ml Q6HP PRN PO 07/08/24 18:30 Docusate Sodium 100 mg BIDPRN PRN PO 07/08/24 18:30 Acetaminophen 650 mg Q6HP PRN PO 07/08/24 18:30 Acetaminophen/ Hydrocodone Bitart 1 tab Q4HP PRN PO 07/08/24 18:30 07/11/24 21:04 1 TAB Ondansetron HCl 4 mg Q4HP PRN IV 07/08/24 18:30 Vancomycin HCl 750 mg/Dextrose 250 ml @ 250 mls/hr Q12H IV 07/10/24 08:30 07/13/24 10:01 250 MLS/HR Losartan Potassium 50 mg DAILY PO 07/12/24 10:00 07/13/24 10:15 50 MG Amlodipine Besylate 5 mg DAILY PO 07/12/24 10:00 07/13/24 10:04 5 MG Hydralazine HCl 10 mg Q6HP PRN IV 07/11/24 12:30 Cefepime HCl 50 ml @ 12.5 mls/hr Q8H IV 07/12/24 00:00 07/13/24 12:42 12.5 MLS/HR Insulin Glargine 10 units DAILY SC 07/14/24 10:00 Hydromorphone HCl 0.5 mg Q4HPRN PRN IV 07/13/24 09:00 07/13/24 15:36 0.5 MG Gabapentin 100 mg TID PO 07/13/24 22:00 Examination General: Awake, alert, comfortable appearing, in no acute distress. HEENT: Head is normocephalic and atraumatic. Pupils are equal, round, and reactive to light. Extraocular muscles are intact. No nasal discharge. No facial trauma. Intraoral exam shows moist mucous membranes with no tonsillar enlargement or exudate. Neck: Supple with no cervical lymphadenopathy No meningismus. No goiter. Heart: Regular rate without murmur, rub, or gallop. Lungs: Equal breath sounds bilaterally with no wheezing, rales, or rhonchi. There is no chest wall tenderness or instability. Abdomen: No external sign of injury. Bowel sounds are present. Abdomen is soft, nontender. No rebound, no guarding, no rigidity. There are no palpable masses. There is no flank pain on exam. Colostomy bag present Extremities:right foot s/p debridement. foot wrap in bandage. Neurologic: Cranial nerves II-XII intact without motor, sensory, or cerebellar deficit laboratory and microbiology Laboratory Tests 07/13/24 06:04 07/12/24 08:42 Test 07/12/24 08:42 Range/Units Serum Glucose 153 H 74-106 mg/dL Microbiology Date/Time Source Procedure Growth Status 07/12/24 12:45 Foot Right Gram Stain Pending Resulted 07/12/24 12:45 Foot Right Anaerobic Culture - Preliminary Resulted 07/12/24 12:45 Foot Right Aerobic Culture Pending Resulted 07/10/24 20:57 Stool Clostridium difficile Toxin Assay - Final Complete 07/08/24 13:45 Blood Blood Culture - Final NO GROWTH AFTER 5 DAYS OF INCUBATION. Complete Problem List/Assessment/Plan Problem List/Assessment/Plan Osteomyelitis likely due to diabetic foot ulcer --> CT right foot: Mild to moderate diffuse soft tissue edema, small focal fluid collection adjacent to the 1st metatarsal head. --> Wound culture: pending --> Continue broad spectrum antibiotics (Vancomycin, cefepime) --> MRI: positive osteomyelitis -->S/P Right foot I&D; --> Patient will return to the OR on Friday for another I&D with possible hallux amputation depending on how looks we will next 48 hours. Type 2 diabetes mellitus --> Hgb A1c: 6.8 --> Regular insulin --> Lantus held due to low blood glucose --> Maintain good glycemic index Hypertension --> Amlodipine --> Losartan History of colon cancer --> Currently on capacitabine --> Just completed 5th session of chemotherapy infusion --> Colostomy bag present Mild hyponatremia --> Na: 134 --> Monitor Lactic acidosis --> Lactic acid: 3.0--> 2.8 --> repeat lab in AM --> Monitor Code status: Full Goal of care discussed for more than 35 minutes Case and plan discussed with Dr. Elizalde Plan discussed with: Patient My Orders My Orders Orders - COREY HADLEY Procedure Category Date Status Time Rt Low Ext Art Duplex US 07/12/24 Resulted 17:02 Consistent DIET 07/13/24 Transmitted Carb(Ccho)Diabetes Breakfast Insulin Lantus PHA 07/14/24 In Process (Glargine) (Lantus) 10:00 Dietary Evaluation Review Comments: Advance to 2gNa CCHO-60 diet when out of foot surgery and medically feasible. Expected Outcomes/Goals: controlled DM, healed wounds Date of Service: Jul 13, 2024 Billing Provider: CRISTHIAN GEORGES MD Common Visit Codes: [id number] INP/OBS CARE(HIGH) COREY HADLEY Jul 13, 2024 16:31 CRISTHIAN GEORGES MD Jul 14, 2024 10:07
--- NOTE | 2024-07-13 16:32 | DVHPN2 ---
Subjective 79-year-old male with a past medical history of hypertension diabetes and colon cancer comes to the ED for evaluation of stated wound check patient does have chronic wounds on his foot which he has been dealing with for a couple months comes to the ED for evaluation states that he saw his pan helper 2 days ago and was given antibiotics on an outpatient basis get states that he is still having severe pain in the wound looks like it is filling worse patient was evaluated in the ED recommended for inpatient management and treatment Changes from previous H/P or p: No Changes Eyes: No Pain, No Vision change, No Conjunctivae inflammation, No Eyelid inflammation, No Other, No Redness ENT: No Ear pain, No Ear discharge, No Nose pain, No Nose discharge, No Nose congestion, No Mouth pain, No Mouth swelling, No Throat pain, No Throat swelling, No Other Cardiovascular: No Chest Pain, No Palpitations, No Orthopnea, No Paroxysmal Noc. Dyspnea, No Edema, No Lt Headedness, No Other Respiratory: No Cough, No Dry, No Shortness of breath, No SOB with excertion, No Wheezing, No Hemoptysis, No Pleuritic Pain, No Sputum, No Other Gastrointestinal: No Nausea, No Vomiting, No Abdominal Pain, No Diarrhea, No Constipation, No Melena, No Hematochezia, No Other Genitourinary: No Dysuria, No Frequency, No Incontinence, No Hematuria, No Retention, No Other Musculoskeletal: No other, No neck pain, No shoulder pain, No arm pain, No back pain, No hand pain; leg pain, foot pain Skin: Rash, Lesions; No Jaundice, No Bruising, No Other Objective Vitals Vital Signs Date Time Temp Pulse Resp B/P (MAP) Pulse Ox O2 Delivery O2 Flow Rate FiO2 07/13/24 15:36 63 15 118/64 07/13/24 14:37 98.2 97 98.2 07/13/24 08:00 Room Air* 0 21 Intake/Output Intake and Output 07/13/24 07:00 Intake Total 595 ml Output Total 400 ml Balance 195 ml Intake Oral 300 ml IV Total 295 ml Output Urine Total 400 ml Exam DERMATOLOGIC EXAM: - Skin is dry and cool to the touch dry bilaterally. - Nails 1-5 of the bilateral foot are thickened, discolored, dystrophic, and tender to palpate with subungual debris - Hair loss noted to bilateral feet - right foot puncture wound on the hallux with purulent drainage and surrounding erythema VASCULAR EXAM: - DP and PT pulses are palpable bilaterally. - CLINICAL INFORMATICS PHYSICIAN is brisk to all digits. - Feet are cool to touch compared to lower legs bilaterally. NEUROLOGIC EXAM: - Normal light touch sensation to the superficial peroneal, deep peroneal, sural, saphenous, and tibial nerve branches. - Protective sensation is diminished as tested with a 5.07 10g Gresham-Lore bilaterally. MUSCULOSKELETAL EXAM: - No gross deformities - Muscle strength is 5/5 and active motion is pain-free and symmetrical bilaterally - No pain or crepitation with passive range of motion bilaterally to all major pedal joints Medications Current Medications Medications Dose Ordered Sig/Jasen Route Start Time Stop Time Status Last Admin Dose Admin Vancomycin HCl 0 ml @ 0 mls/hr UD IV 07/08/24 18:30 Diagnostic Test (Pha) 1 strip IQ4HR 07/08/24 20:00 07/13/24 15:37 1 STRIP Insulin Human Regular IQ4HR SC 07/08/24 20:00 07/13/24 12:47 4 UNITS Dextrose 50 ml UD PRN IV 07/08/24 18:30 Al Hydrox/Mg Hydrox/Simethicone 30 ml Q6HP PRN PO 07/08/24 18:30 Docusate Sodium 100 mg BIDPRN PRN PO 07/08/24 18:30 Acetaminophen 650 mg Q6HP PRN PO 07/08/24 18:30 Acetaminophen/ Hydrocodone Bitart 1 tab Q4HP PRN PO 07/08/24 18:30 07/11/24 21:04 1 TAB Ondansetron HCl 4 mg Q4HP PRN IV 07/08/24 18:30 Vancomycin HCl 750 mg/Dextrose 250 ml @ 250 mls/hr Q12H IV 07/10/24 08:30 07/13/24 10:01 250 MLS/HR Losartan Potassium 50 mg DAILY PO 07/12/24 10:00 07/13/24 10:15 50 MG Amlodipine Besylate 5 mg DAILY PO 07/12/24 10:00 07/13/24 10:04 5 MG Hydralazine HCl 10 mg Q6HP PRN IV 07/11/24 12:30 Cefepime HCl 50 ml @ 12.5 mls/hr Q8H IV 07/12/24 00:00 07/13/24 12:42 12.5 MLS/HR Insulin Glargine 10 units DAILY SC 07/14/24 10:00 Hydromorphone HCl 0.5 mg Q4HPRN PRN IV 07/13/24 09:00 07/13/24 15:36 0.5 MG Gabapentin 100 mg TID PO 07/13/24 22:00 Laboratory Results Laboratory Tests 07/12/24 08:42 07/13/24 06:04 Urinalysis Test 07/08/24 21:30 Urine Color Yellow (Yellow) Urine Clarity Clear (Clear) Urine pH 6.0 (5.0-9.0) Urine Specific [place] 1.028 (1.001-1.035) Urine Protein 2+ (Negative) H Urine Ketones Negative (Negative) Urine Blood 1+ /uL (Negative) H Urine Nitrite Negative (Negative) Urine Bilirubin Negative (Negative) Urine Urobilinogen 3 mg/dL (Negative) H Urine Leukocyte Esterase Negative /uL (Negative) Urine RBC 9 /hpf (0 - 3) Urine WBC 1 /hpf (0 - 3) Urine Squamous Epithelial Cells Few /hpf (<5) Urine Bacteria None seen /hpf (None Seen) Urine Hyaline Casts Few /lpf (0 - 2) Urine Mucus Few (None Seen) Urine Glucose 4+ mg/dL (Normal) H Microbiology Microbiology Date/Time Source Procedure Growth Status 07/12/24 12:45 Foot Right Gram Stain Pending Resulted 07/12/24 12:45 Foot Right Anaerobic Culture - Preliminary Resulted 07/12/24 12:45 Foot Right Aerobic Culture Pending Resulted 07/10/24 20:57 Stool Clostridium difficile Toxin Assay - Final Complete 07/08/24 13:45 Blood Blood Culture - Final NO GROWTH AFTER 5 DAYS OF INCUBATION. Complete Assessment/Plan Assessment/Plan ASSESSMENT: Patient is a 79-year-old seen on the floor for a worsening right foot wound 1 day s/p from a since then and drainage PLAN: - The patients chart was reviewed, clinical findings were discussed with the patient, the etiologies of the conditions were discussed in detail, and a treatment plan was agreed to at this time, with both oral and written instructions provided. - check the dressings incision today with concern of gangrene of the hallux - discussed with the patient that my recommendation would be hallux amputation with another incision and drainage possible closure tomorrow - patient to be NPO at midnight - plan for surgery tomorrow at noon All questions were answered and concerns addressed to the patient's satisfaction. The patient was given the phone number to the clinic and was told how to make contact with the clinic should any concerns or questions arise. Patient understands that if any questions or concerns arise prior to the next appointment, we should be contacted immediately. FOLLOW-UP: We will follow inpatient Plan discussed with: Patient My Orders Orders - AMA CORTES DPM Procedure Category Date Status Time Npo After Midnight DIET 07/13/24 Verified Dinner Obtain Consent For: ORDERS 07/13/24 Verified 16:29 Problem List: (1) Sepsis (2) Osteomyelitis (3) Diabetes mellitus type 2 with complications, uncontrolled Date of Service: Jul 13, 2024 Billing Provider: AMA CORTES DPM Common Visit Codes: [id number] INP/OBS CARE(MOD) AMA CORTES DPM Jul 13, 2024 16:32
[2024-07-13 16:47] VITALS: BP 116/58; PULSE 61; RESP 15; TEMP 97.7; O2SAT 96
[2024-07-13] MEDS: ACETAMINOPHEN 325 MG TAB PO PRN (19:04)
[2024-07-13] MEDS: GABAPENTIN 100 MG CAP PO SCH (21:48)
[2024-07-13 22:00] VITALS: BP 134/64; PULSE 68; RESP 18; TEMP 97.5; O2SAT 96
[2024-07-13] MEDS: CEFEPIME 1GM/ 50ML 50 ML IV SCH (23:56)
[2024-07-14] VITALS (8 sets, daily range): BP systolic 114–137; BP diastolic 57–71; PULSE 60–86; RESP 16–18; TEMP 96.3–97.8; O2SAT 95–98
[2024-07-14] MEDS ORDERED: INSULIN LANTUS (GLARGINE) 1 /0.01ml (100units/ml) SC SCH (10:00)
[2024-07-14] MEDS ORDERED: DexAMETHasone SOD PHOS 10MG/1ML VIAL INJ ONE (12:03)
[2024-07-14] MEDS ORDERED: PROPOFOL 10 MG/ML 20 ML IV ONE (12:03)
[2024-07-14] MEDS ORDERED: MIDAZOLAM HCL 2MG/2ML 2ml VIAL (1mg/ml) ONE (12:03)
[2024-07-14] MEDS ORDERED: fentaNYL CITRATE 100 MCG/2 ML VL ONE (12:03)
[2024-07-14] MEDS: BUPIVACAINE 0.5% P/F INJ 10 ML VIAL ONE (12:37)
[2024-07-14] MEDS: VANCOMYCIN HCL 1000 MG VL ONE (12:45)
--- NOTE | 2024-07-14 12:46 | DVH ---
EXAM: XY CHEST TWO VIEWS ROUTINE CLINICAL HISTORY: surgery COMPARISON: None TECHNIQUE: Frontal and lateral view of the chest was obtained FINDINGS: Lines and Tubes: Right side PICC line with the tip at the cavoatrial junction. Lungs: Low lung volumes. There is no focal lung consolidation. Pleura: No effusion. No pneumothorax. Cardiomediastinal contours: Unremarkable Pulmonary vasculature: Within normal limits. Bones: No acute osseous abnormality. IMPRESSION: 1. No acute cardiopulmonary disease. HS:Y
--- NOTE | 2024-07-14 13:03 | DVHPN2 ---
Subjective 79-year-old male with a past medical history of hypertension diabetes and colon cancer comes to the ED for evaluation of stated wound check patient does have chronic wounds on his foot which he has been dealing with for a couple months comes to the ED for evaluation states that he saw his oral communication instructor 2 days ago and was given antibiotics on an outpatient basis get states that he is still having severe pain in the wound looks like it is filling worse patient was evaluated in the ED recommended for inpatient management and treatment Changes from previous H/P or p: No Changes Eyes: No Pain, No Vision change, No Conjunctivae inflammation, No Eyelid inflammation, No Other, No Redness ENT: No Ear pain, No Ear discharge, No Nose pain, No Nose discharge, No Nose congestion, No Mouth pain, No Mouth swelling, No Throat pain, No Throat swelling, No Other Cardiovascular: No Chest Pain, No Palpitations, No Orthopnea, No Paroxysmal Noc. Dyspnea, No Edema, No Lt Headedness, No Other Respiratory: No Cough, No Dry, No Shortness of breath, No SOB with excertion, No Wheezing, No Hemoptysis, No Pleuritic Pain, No Sputum, No Other Gastrointestinal: No Nausea, No Vomiting, No Abdominal Pain, No Diarrhea, No Constipation, No Melena, No Hematochezia, No Other Genitourinary: No Dysuria, No Frequency, No Incontinence, No Hematuria, No Retention, No Other Musculoskeletal: No other, No neck pain, No shoulder pain, No arm pain, No back pain, No hand pain; leg pain, foot pain Skin: Rash, Lesions; No Jaundice, No Bruising, No Other Objective Vitals Vital Signs Date Time Temp Pulse Resp B/P (MAP) Pulse Ox O2 Delivery O2 Flow Rate FiO2 07/14/24 09:14 135/60 07/14/24 09:00 97.6 63 18 98 97.6 07/14/24 08:00 Room Air* 0 21 Intake/Output Intake and Output 07/14/24 07:00 Intake Total 1650 ml Output Total 1050 ml Balance 600 ml Intake Oral 1350 ml IV Total 300 ml Output Urine Total 1050 ml Exam DERMATOLOGIC EXAM: - Skin is dry and cool to the touch dry bilaterally. - Nails 1-5 of the bilateral foot are thickened, discolored, dystrophic, and tender to palpate with subungual debris - Hair loss noted to bilateral feet - right foot puncture wound on the hallux with purulent drainage and surrounding erythema VASCULAR EXAM: - DP and PT pulses are palpable bilaterally. - MANAGER ER is brisk to all digits. - Feet are cool to touch compared to lower legs bilaterally. NEUROLOGIC EXAM: - Normal light touch sensation to the superficial peroneal, deep peroneal, sural, saphenous, and tibial nerve branches. - Protective sensation is diminished as tested with a 5.07 10g [place] bilaterally. MUSCULOSKELETAL EXAM: - No gross deformities - Muscle strength is 5/5 and active motion is pain-free and symmetrical bilaterally - No pain or crepitation with passive range of motion bilaterally to all major pedal joints Medications Current Medications Medications Dose Ordered Sig/Jasen Route Start Time Stop Time Status Last Admin Dose Admin Vancomycin HCl 0 ml @ 0 mls/hr UD IV 07/08/24 18:30 Diagnostic Test (Pha) 1 strip IQ4HR 07/08/24 20:00 07/14/24 11:43 1 STRIP Insulin Human Regular IQ4HR SC 07/08/24 20:00 07/14/24 00:18 4 UNITS Dextrose 50 ml UD PRN IV 07/08/24 18:30 Al Hydrox/Mg Hydrox/Simethicone 30 ml Q6HP PRN PO 07/08/24 18:30 Docusate Sodium 100 mg BIDPRN PRN PO 07/08/24 18:30 Acetaminophen 650 mg Q6HP PRN PO 07/08/24 18:30 07/13/24 19:04 650 MG Acetaminophen/ Hydrocodone Bitart 1 tab Q4HP PRN PO 07/08/24 18:30 07/11/24 21:04 1 TAB Ondansetron HCl 4 mg Q4HP PRN IV 07/08/24 18:30 Vancomycin HCl 750 mg/Dextrose 250 ml @ 250 mls/hr Q12H IV 07/10/24 08:30 07/14/24 09:11 250 MLS/HR Losartan Potassium 50 mg DAILY PO 07/12/24 10:00 07/14/24 09:14 50 MG Amlodipine Besylate 5 mg DAILY PO 07/12/24 10:00 07/14/24 09:14 5 MG Hydralazine HCl 10 mg Q6HP PRN IV 07/11/24 12:30 Gabapentin 100 mg TID PO 07/13/24 22:00 07/14/24 05:44 100 MG Cefepime HCl 50 ml @ 12.5 mls/hr Q8H IV 07/13/24 23:59 07/14/24 09:15 12.5 MLS/HR Morphine Sulfate 1 mg Q4HP PRN IV 07/14/24 10:15 Laboratory Results Laboratory Tests 07/12/24 08:42 07/13/24 06:04 Urinalysis Test 07/08/24 21:30 Urine Color Yellow (Yellow) Urine Clarity Clear (Clear) Urine pH 6.0 (5.0-9.0) Urine Specific [place] 1.028 (1.001-1.035) Urine Protein 2+ (Negative) H Urine Ketones Negative (Negative) Urine Blood 1+ /uL (Negative) H Urine Nitrite Negative (Negative) Urine Bilirubin Negative (Negative) Urine Urobilinogen 3 mg/dL (Negative) H Urine Leukocyte Esterase Negative /uL (Negative) Urine RBC 9 /hpf (0 - 3) Urine WBC 1 /hpf (0 - 3) Urine Squamous Epithelial Cells Few /hpf (<5) Urine Bacteria None seen /hpf (None Seen) Urine Hyaline Casts Few /lpf (0 - 2) Urine Mucus Few (None Seen) Urine Glucose 4+ mg/dL (Normal) H Microbiology Microbiology Date/Time Source Procedure Growth Status 07/12/24 12:45 Foot Right Gram Stain Pending Resulted 07/12/24 12:45 Foot Right Anaerobic Culture - Preliminary Resulted 07/12/24 12:45 Foot Right Aerobic Culture Pending Resulted 07/10/24 20:57 Stool Clostridium difficile Toxin Assay - Final Complete 07/08/24 13:45 Blood Blood Culture - Final NO GROWTH AFTER 5 DAYS OF INCUBATION. Complete Assessment/Plan Assessment/Plan ASSESSMENT: Patient is a 79-year-old seen on the floor for a worsening right foot wound 2 day s/p from a since then and drainage PLAN: - The patients chart was reviewed, clinical findings were discussed with the patient, the etiologies of the conditions were discussed in detail, and a treatment plan was agreed to at this time, with both oral and written instructions provided. - check the dressings incision today with concern of gangrene of the hallux - discussed with the patient that my recommendation would be hallux amputation with another incision and drainage possible closure tomorrow - patient to be NPO since midnight - plan for surgery today at noon All questions were answered and concerns addressed to the patient's satisfaction. The patient was given the phone number to the clinic and was told how to make contact with the clinic should any concerns or questions arise. Patient understands that if any questions or concerns arise prior to the next appointment, we should be contacted immediately. FOLLOW-UP: We will follow inpatient Plan discussed with: Patient My Orders Orders - AMA CORTES DPM Procedure Category Date Status Time Npo After Midnight DIET 07/13/24 Transmitted Dinner Obtain Consent For: ORDERS 07/13/24 Transmitted 16:33 Date of Service: Jul 14, 2024 Billing Provider: AMA CORTES DPM Common Visit Codes: [id number] INP/OBS CARE(MOD) AMA CORTES DPM Jul 14, 2024 13:03
--- NOTE | 2024-07-14 13:07 | DVHOP2 ---
Operative Report - 2 Report Details Date: 07/14/24 Preop Diagnosis: 1. Right foot abscess 2. Right foot cellulitis 3. Right foot diabetic ulcer 4. Right foot osteomyelitis Postop Diagnosis: Same as preop Surgeon: Ama Cortes MD Anesthesiologist: See anesthesia Anesthesia: Mac Consent: The patient was informed of the risks and benefits of the procedure. These include but are not limited to complications of anesthesia, postoperative infection, incomplete relief of symptoms, recurrence of symptoms, damage to blood vessels, nerves and tendons, deep venous thrombosis, pulmonary embolism and possible need for repeat surgery in the future. Complications: None Estimated Blood Loss: Minimal Fluids: See anesthesia Findings: Consistent with diagnosis Indications for Surgery: Worsening right foot wound Name of Procedure Performed 1. Right foot I&D to bone (41874) 2. Right hallux amputation (74798) 3. Right hallux bone biopsy () Procedure Details Procedure Details: PRE-PROCEDURE INFORMATION: In the pre-op holding area, the extremity to be o perated on was clearly marked and the patient verified correct laterality of the marking. The patient was transferred to the OR table and placed in a supine position. A timeout was performed in which identification of the correct patient, procedure, location, and materials was done. The right foot and leg were prepped and draped in normal sterile fashion. DESCRIPTION OF PROCEDURE: Attention was directed to the right foot where area of fluctuance was noted. An incision was made over this area and was deepened through blunt dissection. The incision was deepened to the level of abscess and bone. Care was taken to the dissection to avoid any neurovascular and tendinous structures. The incision was deepened to the bone, and the abscess appeared to be purulent fluid consistent with pus. It was decided at that time that the hallux was no longer viable with significant necrosis. A amputation of the 1st hallux at the MPJ was performed. Using a sharp 15 blade, the toe was removed at the 1st metatarsophalangeal joint. After the abscess was drained, the area was irrigated with 3 L normal saline using cysto tubing. The wound was then closed with 2-0 nylon. A dry sterile dressing was placed on the surgical extremity. The patient was placed in a postop shoe POSTOPERATIVE INFORMATION: The patient tolerated the above noted procedure and anesthesia well and was transferred to the PACU with vital signs stable, and vascular status intact with capillary refill intact to all digits. Patient can continue IV antibiotics. Patient will need discharge with oral antibiotics as there is no longer concern for bone infection. Patient can weightbear as tolerated in postop shoe. Patient will see me week after discharge. Specimen: Right hallux bone Condition Good Disposition Still a Patient AMA CORTES DPM Jul 14, 2024 13:07
[2024-07-14] MEDS ORDERED: ePHEDrine SULFATE 50 MG/ML AMP IV PRN (13:15)
[2024-07-14] MEDS ORDERED: MIDAZOLAM HCL 2MG/2ML 2ml VIAL (1mg/ml) IV PRN (13:15)
[2024-07-14] MEDS ORDERED: MORPHINE SULFATE 4 MG/ML SYR/VIAL IV PRN (13:15)
[2024-07-14] MEDS: ONDANSETRON HCL 4 MG/2 ML VIAL IV ONE (13:15)
[2024-07-14] MEDS: MORPHINE SULFATE INJ 2 MG/ml SYRG IV PRN (18:06)
--- NOTE | 2024-07-14 19:37 | DVHPNRES ---
Progress Note Date Seen: Jul 14, 2024 Resident Creating Document: COREY HADLEY RESIDENT Medical Necessity Reason Pt with a Central, PICC or Fol: No Medical Necessity Reason Diabetic foot ulcer right foot osteomyelitis right foot Subjective Review of Systems Patient was seen and examined before surgery today. He was lying in bed and denied any pain fever, nausea, chills or foot pain. However, patient was very sensitive to little things like his colostomy bag not being change. Meanwhile, the bag is barely full. I saw the patient again post surgery. He is s/p amputation of the right hallux, right hallux bone biopsy, right foot I&D to bone. Patient lying in bed with the daughter by the bedside. Objective vital signs Vital Sign Date Time Temp Pulse Resp B/P (MAP) Pulse Ox O2 Delivery O2 Flow Rate FiO2 07/14/24 18:44 83 16 122/65 07/14/24 17:00 97.2 97 97.2 07/14/24 13:05 Room Air 0 07/14/24 13:05 97 Total Intake and Output 07/13/24 07/13/24 07/14/24 15:00 23:00 07:00 Intake Total 808 ml 842 ml 0 ml Output Total 900 ml 150 ml Balance 808 ml -58 ml -150 ml medications Current Medications Medications Dose Ordered Sig/Jasen Route Start Time Stop Time Status Last Admin Dose Admin Diagnostic Test (Pha) 1 strip IQ4HR 07/08/24 20:00 07/14/24 17:13 1 STRIP Insulin Human Regular IQ4HR SC 07/08/24 20:00 07/14/24 17:13 8 UNITS Dextrose 50 ml UD PRN IV 07/08/24 18:30 Al Hydrox/Mg Hydrox/Simethicone 30 ml Q6HP PRN PO 07/08/24 18:30 Docusate Sodium 100 mg BIDPRN PRN PO 07/08/24 18:30 Acetaminophen 650 mg Q6HP PRN PO 07/08/24 18:30 07/13/24 19:04 650 MG Acetaminophen/ Hydrocodone Bitart 1 tab Q4HP PRN PO 07/08/24 18:30 07/11/24 21:04 1 TAB Ondansetron HCl 4 mg Q4HP PRN IV 07/08/24 18:30 Losartan Potassium 50 mg DAILY PO 07/12/24 10:00 07/14/24 09:14 50 MG Amlodipine Besylate 5 mg DAILY PO 07/12/24 10:00 07/14/24 09:14 5 MG Hydralazine HCl 10 mg Q6HP PRN IV 07/11/24 12:30 Gabapentin 100 mg TID PO 07/13/24 22:00 07/14/24 05:44 100 MG Morphine Sulfate 1 mg Q4HP PRN IV 07/14/24 10:15 07/14/24 18:06 1 MG Cefazolin Sodium/ Dextrose 50 ml @ 50 mls/hr Q8HR IV 07/14/24 22:00 Examination General examination- Not in acute distress, lying in bed HEENT: PEERLA, no acute nasal discharge Chest: S1-S2 audible, rate and rhythm regular, no murmur Lung: CTAB, no wheeze or rhonchi Abdomen: Nondistend, BS+, nontenderness, no organomegaly Musculoskeletal: no acute joint swelling or tenderness Lower extremity: Right foot covered in bandage. Post amputation Neurological: cranial nerves intact, no acute dysarthria or dysphagia Psychiatry-- Normal mood and affect Skin- no acute rash or purpura laboratory and microbiology Laboratory Tests 07/13/24 06:04 07/12/24 08:42 Test 07/12/24 08:42 Range/Units Serum Glucose 153 H 74-106 mg/dL Microbiology Date/Time Source Procedure Growth Status 07/12/24 12:45 Foot Right Gram Stain Pending Resulted 07/12/24 12:45 Foot Right Anaerobic Culture - Preliminary Resulted 07/12/24 12:45 Aerobic Culture - Final Staphylococcus aureus Resulted 07/10/24 20:57 Stool Clostridium difficile Toxin Assay - Final Complete 07/08/24 13:45 Blood Blood Culture - Final NO GROWTH AFTER 5 DAYS OF INCUBATION. Complete Problem List/Assessment/Plan Problem List/Assessment/Plan Osteomyelitis likely due to diabetic foot ulcer --> Wound culture: staph aureus --> Continue broad spectrum antibiotics ( STOP: Vancomycin, cefepime) --> MRI: positive osteomyelitis -->S/P Right foot I& and hallux amputation --> start cefazolin --> Need to find out from the oncologist if patient can received antibiotics via picc line Type 2 diabetes mellitus --> Hgb A1c: 6.8 --> Regular insulin --> Lantus 10 unit at night --> Maintain good glycemic index Hypertension --> Amlodipine --> Losartan History of colon cancer --> Currently on capacitabine --> Just completed 5th session of chemotherapy infusion --> Colostomy bag present, changed regular --> still on chemo therapy via PICC line Mild hyponatremia--> improved --> Na: 134 --> Monitor Lactic acidosis --> Lactic acid--> improved --> Monitor Code status: Full Goal of care discussed for more than 35 minutes Case and plan discussed with Dr. Elizalde Plan discussed with: Patient My Orders My Orders Orders - COREY HADLEY Procedure Category Date Status Time * Picc Line Consult CONS 07/14/24 Transmitted 11:37 Cefazolin 2 PHA 07/14/24 In Process [id number] (Ancef) 22:00 Dietary Evaluation Review Comments: Advance to 2gNa CCHO-60 diet when out of foot surgery and medically feasible. Expected Outcomes/Goals: controlled DM, healed wounds Date of Service: Jul 14, 2024 Billing Provider: CRISTHIAN GEORGES MD Common Visit Codes: [id number] INP/OBS CARE(HIGH) COREY HADLEY Jul 14, 2024 19:36 CRISTHIAN GEORGES MD Jul 15, 2024 09:19
[2024-07-14] MEDS: ceFAZolin 2 GM/D5W50ml 50 ML IV SCH (21:06)
[2024-07-15] VITALS (7 sets, daily range): BP systolic 96–127; BP diastolic 47–66; PULSE 66–74; RESP 17–19; TEMP 97.3–98.6; O2SAT 97–98
[2024-07-15 11:00] LABS: Basophils # (auto) 0 10 ^3/uL (0-0.2); Basophils % (auto) 0.1 % (0.0-2.0); Eosinophils # (auto) 0 10 ^3/uL (0-0.8); Hematocrit 31.9 % (41.0-53.0); Hemoglobin 10.8 g/dL (13.5-17.5); Lymphocytes # (auto) 0.8 10 ^3/uL (0.4-5.4); Lymphocytes % (auto) 9.4 % (10.0-50.0); Mean Corpuscular Hemoglobin 33.6 pg (28.0-32.0); Mean Corpuscular Volume 98.9 fL (80.0-100.0); Monocytes # (auto) 0.9 10 ^3/uL (0-1.3); Monocytes % (auto) 10.7 % (0.0-12.0); Neutrophils # (auto) 6.5 10 ^3/uL (1.6-8.6); Neutrophils % (auto) 79.8 % (37.0-80.0); Platelet Count (auto) 180 10^3/uL (140-450); Red Blood Cells 3.23 10^6/uL (4.5-5.90); White Blood Cell 8.2 10^3/uL (4.4-10.8)
[2024-07-15 11:15] LABS: Chloride 104 mmol/L (98-107); Potassium 3.9 mmol/L (3.5-5.1)
[2024-07-15 11:16] LABS: Anion Gap 10 (5-15); Carbon Dioxide 20 mmol/L (20-31)
[2024-07-15 11:21] LABS: BUN/Creatinine Ratio 21.3 (10.0-20.0)
[2024-07-15 11:23] LABS: Blood Urea Nitrogen 38 mg/dL (9-23); Calcium 8.3 mg/dL (8.7-10.4); Glucose 177 mg/dL (74-106); Sodium 134 mmol/L (136-145)
[2024-07-15] MEDS: INSULIN LANTUS (GLARGINE) 1 /0.01ml (100units/ml) SC SCH (11:46)
[2024-07-15] MEDS: SODIUM CHLORIDE 0.9% 1,000 ML IV ONE (14:00)
--- NOTE | 2024-07-15 14:00 | DVHPNRES ---
Progress Note Date Seen: Jul 15, 2024 Resident Creating Document: COREY HADLEY RESIDENT Medical Necessity Reason Pt with a Central, PICC or Fol: No Medical Necessity Reason S/P right hallux amputation osteomyelitis Subjective Review of Systems Patient was seen and examined this morning. He is s/p amputation of the right hallux He is sitting in bed eating breakfast. He has good appetites. Patient denied any pain, fever, nausea, chills or foot pain. Waiting to hear from his oncologist about using the same PICC for his antibiotics Objective vital signs Vital Sign Date Time Temp Pulse Resp B/P (MAP) Pulse Ox O2 Delivery O2 Flow Rate FiO2 07/15/24 11:54 97.3 68 17 108/55 (72) 98 97.3 07/15/24 07:30 Room Air* 0 21 Total Intake and Output 07/14/24 07/14/24 07/15/24 15:00 23:00 07:00 Intake Total 350 ml 50 ml 250 ml Output Total 575 ml Balance 350 ml -525 ml 250 ml medications Current Medications Medications Dose Ordered Sig/Jasen Route Start Time Stop Time Status Last Admin Dose Admin Diagnostic Test (Pha) 1 strip IQ4HR 07/08/24 20:00 07/15/24 11:47 1 STRIP Insulin Human Regular IQ4HR SC 07/08/24 20:00 07/15/24 08:17 4 UNITS Dextrose 50 ml UD PRN IV 07/08/24 18:30 Al Hydrox/Mg Hydrox/Simethicone 30 ml Q6HP PRN PO 07/08/24 18:30 Docusate Sodium 100 mg BIDPRN PRN PO 07/08/24 18:30 Acetaminophen 650 mg Q6HP PRN PO 07/08/24 18:30 07/13/24 19:04 650 MG Acetaminophen/ Hydrocodone Bitart 1 tab Q4HP PRN PO 07/08/24 18:30 07/15/24 08:09 1 TAB Ondansetron HCl 4 mg Q4HP PRN IV 07/08/24 18:30 Losartan Potassium 50 mg DAILY PO 07/12/24 10:00 07/15/24 09:36 50 MG Amlodipine Besylate 5 mg DAILY PO 07/12/24 10:00 07/14/24 09:14 5 MG Hydralazine HCl 10 mg Q6HP PRN IV 07/11/24 12:30 Gabapentin 100 mg TID PO 07/13/24 22:00 07/15/24 04:43 100 MG Morphine Sulfate 1 mg Q4HP PRN IV 07/14/24 10:15 07/15/24 00:38 1 MG Cefazolin Sodium/ Dextrose 50 ml @ 50 mls/hr Q8HR IV 07/14/24 22:00 07/15/24 04:46 50 MLS/HR Insulin Glargine 15 units QAM SC 07/15/24 10:00 07/15/24 11:46 15 UNITS Examination General examination- Not in acute distress, lying in bed HEENT: PEERLA, no acute nasal discharge Chest: S1-S2 audible, rate and rhythm regular, no murmur Lung: CTAB, no wheeze or rhonchi Abdomen: Nondistend, BS+, nontenderness, no organomegaly Musculoskeletal: no acute joint swelling or tenderness Lower extremity: Right foot covered in bandage. Post amputation Neurological: cranial nerves intact, no acute dysarthria or dysphagia Psychiatry-- Normal mood and affect Skin- no acute rash or purpura laboratory and microbiology Laboratory Tests 07/15/24 10:40 Test 07/15/24 10:40 Range/Units Serum Glucose 177 H 74-106 mg/dL Microbiology Date/Time Source Procedure Growth Status 07/14/24 14:20 Nose MRSA Screen - Final Complete 07/10/24 20:57 Stool Clostridium difficile Toxin Assay - Final Complete 07/08/24 13:45 Blood Blood Culture - Final NO GROWTH AFTER 5 DAYS OF INCUBATION. Complete Problem List/Assessment/Plan Problem List/Assessment/Plan Osteomyelitis likely due to diabetic foot ulcer --> Wound culture: staph aureus --> Continue broad spectrum antibiotics ( STOP: Vancomycin, cefepime) --> MRI: positive osteomyelitis -->S/P Right foot I&D and hallux amputation --> continue cefazolin 2gm q8hrs Type 2 diabetes mellitus --> Hgb A1c: 6.8 --> Regular insulin --> Lantus 10 unit at night --> Maintain good glycemic index Hypertension --> Amlodipine --> Losartan History of colon cancer --> Currently on capacitabine --> Just completed 5th session of chemotherapy infusion --> Colostomy bag present, changed regular --> still on chemo therapy via PICC line Mild hyponatremia--> improved --> Na: 134 --> Monitor Lactic acidosis --> Lactic acid--> improved --> Monitor Discharge plan: ---> Check pathology report ---> Continue Cefazolin for the next 6 weeks, via the same picc for his chemotherapy. Per patient's daughter, the oncologist said it is ok to use the same picc access for antibiotic. They will bring a note from the oncologist --> creative services producer consulted for home health planning --> For discharge tomorrow Code status: Full Goal of care discussed for more than 35 minutes Case and plan discussed with Dr. Elizalde Plan discussed with: Patient My Orders My Orders Orders - COREY HADLEY Procedure Category Date Status Time Cefazolin 2 PHA 07/14/24 In Process [id number] (Ancef) 22:00 Insulin Lantus PHA 07/15/24 In Process (Glargine) (Lantus) 10:00 Dietary Evaluation Review Comments: Advance to 2gNa CCHO-60 diet when out of foot surgery and medically feasible. Expected Outcomes/Goals: controlled DM, healed wounds Date of Service: Jul 15, 2024 Billing Provider: CRISTHIAN GEORGES MD Common Visit Codes: [id number] INP/OBS CARE(HIGH) COREY HADLEY Jul 15, 2024 14:00 CRISTHIAN GEORGES MD Jul 19, 2024 09:21
[2024-07-16] VITALS (7 sets, daily range): BP systolic 112–127; BP diastolic 55–74; PULSE 56–68; RESP 18; TEMP 97.2–98.3; O2SAT 98–99
[2024-07-16 08:58] LABS: Chloride 105 mmol/L (98-107)
[2024-07-16 08:59] LABS: Anion Gap 9 (5-15); Carbon Dioxide 20 mmol/L (20-31)
[2024-07-16 09:00] LABS: Calcium 8.1 mg/dL (8.7-10.4); Sodium 134 mmol/L (136-145)
[2024-07-16 09:06] LABS: Glucose 121 mg/dL (74-106)
[2024-07-16 09:17] LABS: BUN/Creatinine Ratio 27.2 (10.0-20.0); Blood Urea Nitrogen 46 mg/dL (9-23)
[2024-07-16] MEDS ORDERED: HYDROcodone-ACET 5/325MG TAB PO PRN (10:30)
[2024-07-16] MEDS: SODIUM CHLORIDE 0.9% 1,000 ML IV ONE (10:30)
[2024-07-16] MEDS: DOCUSATE SOD 100 MG CAP PO PRN (10:42)
--- NOTE | 2024-07-16 20:09 | DVHDSRES ---
Discharge Summary Date of Admission Resident Creating Document: COREY HADLEY RESIDENT Jul 08, 2024 at 18:21 Date of Discharge: Jul 16, 2024 Admitting Diagnosis Osteomyelitis of the right great toe s/p amputation Labs/Diagnostic Data: Laboratory Results Test 07/16/24 16:39 07/16/24 16:06 07/16/24 08:37 07/15/24 10:40 POC Glucose 113 mg/dl (70-106) Blood Urea Nitrogen 41 mg/dL (9-23) Creatinine 1.74 mg/dL (0.700-1.30) Glomerular Filtration Rate Calc 39 mL/min (>90) Sodium Level 134 mmol/L (136-145) Potassium Level 4.0 mmol/L (3.5-5.1) Chloride Level 105 mmol/L (98-107) Carbon Dioxide Level 20 mmol/L (20-31) Anion Gap 9 (5-15) BUN/Creatinine Ratio 27.2 (10.0-20.0) Serum Glucose 121 mg/dL (74-106) Calcium Level 8.1 mg/dL (8.7-10.4) White Blood Count 8.2 10^3/uL (4.4-10.8) Red Blood Count 3.23 10^6/uL (4.5-5.90) Hemoglobin 10.8 g/dL (13.5-17.5) Hematocrit 31.9 % (41.0-53.0) Mean Corpuscular Volume 98.9 fL (80.0-100.0) Mean Corpuscular Hemoglobin 33.6 pg (28.0-32.0) Mean Corpuscular Hemoglobin Concent 34.0 g/dL (32.0-36.0) Red Cell Distribution Width 20.0 % (11.8-14.3) Platelet Count 180 10^3/uL (140-450) Mean Platelet Volume 7.9 fL (6.9-10.8) Neutrophils (%) (Auto) 79.8 % (37.0-80.0) Lymphocytes (%) (Auto) 9.4 % (10.0-50.0) Monocytes (%) (Auto) 10.7 % (0.0-12.0) Eosinophils (%) (Auto) 0.0 % (0.0-7.0) Basophils (%) (Auto) 0.1 % (0.0-2.0) Neutrophils # (Auto) 6.5 10 ^3/uL (1.6-8.6) Lymphocytes # (Auto) 0.8 10 ^3/uL (0.4-5.4) Monocytes # (Auto) 0.9 10 ^3/uL (0-1.3) Eosinophils # (Auto) 0 10 ^3/uL (0-0.8) Basophils # (Auto) 0 10 ^3/uL (0-0.2) Nucleated Red Blood Cells 0.0 % Test 07/13/24 06:04 07/12/24 08:42 07/10/24 11:53 07/09/24 06:15 Vancomycin Level Trough 19.2 ug/mL (5-10) Prothrombin Time 11.9 sec (9.3-11.8) Prothrombin Time INR 1.13 (0.9-1.15) Activated Partial Thromboplast Time 32.8 SEC (24.5-34.5) Lactic Acid Level 1.1 mmol/L (0.4-2.0) Hemoglobin A1c 6.8 % A1C (<5.7) Test 07/08/24 21:30 07/08/24 13:45 Urine Color Yellow (Yellow) Urine Clarity Clear (Clear) Urine pH 6.0 (5.0-9.0) Urine Specific [place] 1.028 (1.001-1.035) Urine Protein 2+ (Negative) Urine Ketones Negative (Negative) Urine Blood 1+ /uL (Negative) Urine Nitrite Negative (Negative) Urine Bilirubin Negative (Negative) Urine Urobilinogen 3 mg/dL (Negative) Urine Leukocyte Esterase Negative /uL (Negative) Urine RBC 9 /hpf (0 - 3) Urine WBC 1 /hpf (0 - 3) Urine Squamous Epithelial Cells Few /hpf (<5) Urine Bacteria None seen /hpf (None Seen) Urine Hyaline Casts Few /lpf (0 - 2) Urine Mucus Few (None Seen) Urine Glucose 4+ mg/dL (Normal) Platelet Estimate Decreased Anisocytosis (manual) Slight Macrocytosis Slight Troponin I High Sensitivity 5 ng/L (</=54) Other Laboratory Tests 07/16/24 16:06 07/16/24 08:37 07/15/24 10:40 Brief Hx & Hospital Course: This 79-year-old male with a past medical history of hypertension, type II diabetes and colon cancer presented to ED for evaluation right foot wound. According to the patient, he has been dealing with chronic wounds for couple of months. He saw his hide examiner 2 days ago and was given antibiotics on an outpatient basis. Patient said he did not see any improvement, but looks to be getting worse. Thus he presented here for re-evaluation. In the ED, initial vitals were temperature 97.8, pulse initially 58--> 103, Respiratory 16 and blood pressure of 127 /56. WBC was unremarkable, chemistry reveals sodium of 134, lactic acid was elevated 3.0-->2.8. CT of the foot revealed 1. Limited evaluation given noncontrast technique. Mild to moderate diffuse soft tissue edema. Small focal fluid collection adjacent to the 1st metatarsal head. MRI of the foot showed osteomyelitis. We consulted hide examiner who performed amputation right hallux started the patient on antibiotics for 6 weeks. Patient is doing well post surgery he denied any fever nausea she also shortness of breath. Post op, patient's creatinine level noted to be trending higher. Currently patient is nof IV fluid and encouraged to hydrate well. Patient was discharge today, but will be going home tomorrow. I received a verbal authorization from Dr. Martinez, the oncologist, that patient can use the same picc line for both his chemotherapy and antibiotics Examination General examination- Not in acute distress, lying in bed HEENT: PEERLA, no acute nasal discharge Chest: S1-S2 audible, rate and rhythm regular, no murmur Lung: CTAB, no wheeze or rhonchi Abdomen: Nondistend, BS+, nontenderness, no organomegaly Musculoskeletal: no acute joint swelling or tenderness Lower extremity: Right foot covered in bandage. Post amputation Neurological: cranial nerves intact, no acute dysarthria or dysphagia Psychiatry-- Normal mood and affect Skin- no acute rash or purpura Diagnoses Osteomyelitis likely due to diabetic foot ulcer Type 2 diabetes mellitus Hypertension History of colon cancer Mild hyponatremia Lactic acidosis Discharge plan: 1. Maintain tight glycemic index 2. Regular foot examination. Check foot always for any ulcers or cut 3. Continue Ceftriaxone for the next 6 weeks, via the same PICC for his chemotherapy at home with home health. I received verbal authorization from the oncologist. 4. follow up with the hide examiner in a week or 2 5. follow up at the Discharge clinic for BMP within a week 6. For discharge tomorrow Case, goal of care and discharge plans discussed with Dr. Elizalde Operations or Procedures Name of Procedure Performed 1. Right foot I&D to bone (14628) 2. Right hallux amputation (43834) 3. Right hallux bone biopsy () Procedure Details Procedure Details: PRE-PROCEDURE INFORMATION: In the pre-op holding area, the extremity to be operated on was clearly marked and the patient verified correct laterality of the marking. The patient was transferred to the OR table and placed in a supine position. A timeout was performed in which identification of the correct patient, procedure, location, and materials was done. The right foot and leg were prepped and draped in normal sterile fashion. DESCRIPTION OF PROCEDURE: Attention was directed to the right foot where area of fluctuance was noted. An incision was made over this area and was deepened through blunt dissection. The incision was deepened to the level of abscess and bone. Care was taken to the dissection to avoid any neurovascular and tendinous structures. The incision was deepened to the bone, and the abscess appeared to be purulent fluid consistent with pus. It was decided at that time that the hallux was no longer viable with significant necrosis. A amputation of the 1st hallux at the MPJ was performed. Using a sharp 15 blade, the toe was removed at the 1st metatarsophalangeal joint. After the abscess was drained, the area was irrigated with 3 L normal saline using cysto tubing. The wound was then closed with 2-0 nylon. A dry sterile dressing was placed on the surgical extremity. The patient was placed in a postop shoe POSTOPERATIVE INFORMATION: The patient tolerated the above noted procedure and anesthesia well and was transferred to the PACU with vital signs stable, and vascular status intact with capillary refill intact to all digits. Patient can continue IV antibiotics. Patient will need discharge with oral antibiotics as there is no longer concern for bone infection. Patient can weightbear as tolerated in postop shoe. Patient will see me week after discharge. Specimen: Right hallux bone Condition Good Disposition 2 Still a Patient PATIENT: JOVAN LIEBERMAN ACCT: [id number] UNIT: [id number] : 1945 LOC: ER ROOM / BED: / AGE / SEX: 79 / M ADM STATUS: REG ER SERVICE 0000 ORDERING PHYSICIAN: ADIN VINSON MD PROCEDURE(s): RLEAD - Rt Low Ext Art Duplex REASON: EVAL FLOW TO RLE HX OF ULCER ORDER NUMBER(s): [id number], ACCESSION NUMBER(s): [id number] Right Lower Extremity Arterial Duplex Clinical History: EVAL FLOW TO RLE HX OF ULCER Comparison: None Technique: Duplex Doppler evaluation including color Doppler and spectral/pulsed waveform analysis of the lower extremity arteries was performed. Findings: RIGHT: Peak systolic velocities are as follows: L[employer]ER 90 cm/s Deep femoral 113 cm/s SFA proximal 63 cm/s SFA mid-portion 89 cm/s SFA distal 87 cm/s Popliteal 75 cm/s Posterior tibial 47 cm/s Anterior tibial 159 cm/s Dorsalis pedis 123 cm/s The waveforms are multiphasic with diastolic flow, with the exception of the anterior tibial, posterior tibial, and dorsalis pedis arteries which are monophasic. Moderrate to marked atherosclerosis. IMPRESSION: 1. Approximately 30-49% stenosis of the anterior tibial artery. 2. Moderate to marked atherosclerosis. REFERENCE VALUES, [facility] ([facility]) vascular Imaging Lab Criteria: Peak systolic velocity ranges (in cm/sec) are as follows: <150 cm/s - <20 % stenosis 150-200 cm/s - 20-49% stenosis 200-300 cm/s - 50-75% stenosis >300 cm/s -> 75% stenosis ATED BY: KELLEY OVALLE DO DICTATED DATE/TIME: 07/08/24 1726 PATIENT: JOVAN LIEBERMAN ACCT: [id number] UNIT: [id number] : 1945 LOC: ER ROOM / BED: / AGE / SEX: 79 / M ADM STATUS: REG ER SERVICE 1548 ORDERING PHYSICIAN: ADIN VINSON MD PROCEDURE(s): RFTCT - CT R FOOT WO CONTRAST REASON: osteo ORDER NUMBER(s): [id number], ACCESSION NUMBER(s): [id number] EXAM: CT CT R FOOT WO CONTRAST INDICATION: osteo EXAM DATE: 07/08/2024 04:00 PM COMPARISON: None TECHNIQUE: Multiple axial CT images of the right foot were obtained using bone algorithm. Axial and coronal reformatting was done. Bone and soft tissue windows were reviewed. Radiation Dose Information: CT Dose: CTDI volume is 7.75 mGy. Dose-length product is 197.56 mGy*cm Findings: Limited evaluation given noncontrast technique. There is no evidence of an acute fracture, dislocation, blastic, or lytic lesions. Mild degenerative changes of the midfoot. No radiopaque foreign bodies. Moderate atherosclerosis. Mild to moderate diffuse soft tissue edema. Small focal fluid collection adjacent to the 1st metatarsal head. Impression: 1. Limited evaluation given noncontrast technique. 2. No osseous erosions or acute fractures. 3. Mild to moderate diffuse soft tissue edema. 4. Small focal fluid collection adjacent to the 1st metatarsal head. ATED BY: KELLEY OVALLE DO DICTATED DATE/TIME: 07/08/24 171 PATIENT: JOVAN LIEBERMAN ACCT: [id number] UNIT: [id number] : 1945 LOC: [facility] ROOM / BED: [facility] / A AGE / SEX: 79 / M ADM STATUS: ADM IN SERVICE 1540 ORDERING PHYSICIAN: COREY HADLEY RESIDENT PROCEDURE(s): RFTMR - MRI R FOOT WO CONTRAST REASON: rule out osteomyelitis ORDER NUMBER(s): [id number], ACCESSION NUMBER(s): [id number] EXAM: MRI MRI R FOOT WO CONTRAST HISTORY: rule out osteomyelitis COMPARISON: CT CT R FOOT WO CONTRAST on DOS: 07/08/24 TECHNIQUE: Multiplanar, multisequence MRI of the right foot was performed. FINDINGS: Bone marrow edema is seen in 2nd phalanges and metatarsal head. Mild bone marrow edema noted in the 1st metatarsal head. Diffuse subcutaneous edema noted surrounding the 2nd toe. No drainable fluid collection noted. Chronic appearing marginal erosions are seen in the medial aspect of the 1st metatarsal head with corticated edges likely related to gout or hallux valgus deformity. There is mild 1st MTP joint osteoarthritis. No significant joint effusion. Severe fluid distention of the extensor hallucis longus tendon sheath. Mild fluid distention of the flexor hallucis tendon sheath noted. Moderate fluid distention of the 2nd extensor and flexor tendon sheaths. There is fluid distention of the flexor tendon sheaths in midfoot nodular thickening and signal alteration of the plantar fascia in hindfoot near calcaneal insertion measuring approximately 1.6 cm in length , 0.7 cm in craniocaudal and 1 cm in transverse compatible with plantar fibroma. Moderate plantar and interosseous musculature edema. IMPRESSION: 1. Findings suggestive of 2nd toe osteomyelitis with involvement of the phalanges metatarsal head. There is severe bone marrow edema in the distal phalanx and moderate subcutaneous edema /cellulitis of the 2nd toe noted. No significant joint effusion or drainable fluid collection. There is tenosynovitis of the 2nd toe flexor and extensor tendons. Infectious tenosynovitis suspected. 2. Moderate fluid distention of the common flexor tendon sheath in midfoot which may reflect infectious or inflammatory tenosynovitis. 3. Severe fluid distention of the flexor hallucis longus tendon sheath at the level of the toe. 4. Chronic erosions of medial cortex of the 1st metatarsal head likely related to gout or hallux valgus deformity. There is mild underlying bone marrow edema but no definite acute cortical erosion seen to indicate acute osteomyelitis. Further evaluation 3-phase bone scan could be completed if clinically warranted. 5. 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 ATED BY: KRISTY DANIEL MD DICTATED DATE/TIME: 07/09/24 8634 PATIENT: JOVAN LIEBERMAN ACCT: [id number] UNIT: [id number] : 1945 LOC: [facility] ROOM / BED: 0231 / A AGE / SEX: 79 / M ADM STATUS: ADM IN SERVICE 170 ORDERING PHYSICIAN: COREY HADLEY RESIDENT PROCEDURE(s): RLEAD - Rt Low Ext Art Duplex REASON: PAD ORDER NUMBER(s): [id number], ACCESSION NUMBER(s): [id number] EXAM: US RT LOW EXT ART DUPLEX HISTORY: PAD COMPARISON: US RT LOW EXT ART DUPLEX on DOS: 07/08/24 TECHNIQUE: Realtime grayscale and color Doppler ultrasound images of the right lower extremity arteries with spectral waveform analysis were obtained. FINDINGS: RIGHT: Mild atherosclerotic plaque identified. No hemodynamically significant stenosis noted. Normal triphasic spectral tracings in the common femoral, deep femoral, superficial femoral, popliteal, posterior tibial arteries. Monophasic waveform noted in dorsalis pedis artery. Peak systolic velocities measure up to 122 cm/s. IMPRESSION: 1. No hemodynamically significant stenosis identified. 2. Monophasic waveform in dorsalis pedis artery suggestive no vessel hardening lack of elastic required. REFERENCE VALUES, [facility]) vascular Imaging Lab Criteria: Peak systolic velocity ranges (in cm/sec) are as follows: <150 cm/s - <20 % stenosis 150-200 cm/s - 20-49% stenosis 200-300 cm/s - 50-75% stenosis >300 cm/s -> 75% stenosis ATED BY: KRISTY DANIEL MD DICTATED DATE/TIME: 07/12/24 1801 PATIENT: JOVAN LIEBERMAN ACCT: [id number] UNIT: [id number] : 1945 LOC: [facility] ROOM / BED: [facility] / A AGE / SEX: 79 / M ADM STATUS: ADM IN SERVICE 1217 ORDERING PHYSICIAN: YUDI CONNELL MD PROCEDURE(s): CXR2 - CHEST TWO VIEWS ROUTINE REASON: surgery ORDER NUMBER(s): [id number], ACCESSION NUMBER(s): [id number] EXAM: XY CHEST TWO VIEWS ROUTINE CLINICAL HISTORY: surgery COMPARISON: None TECHNIQUE: Frontal and lateral view of the chest was obtained FINDINGS: Lines and Tubes: Right side PICC line with the tip at the cavoatrial junction. Lungs: Low lung volumes. There is no focal lung consolidation. Pleura: No effusion. No pneumothorax. Cardiomediastinal contours: Unremarkable Pulmonary vasculature: Within normal limits. Bones: No acute osseous abnormality. IMPRESSION: 1. No acute cardiopulmonary disease. HS:Y ATED BY: NEFTALI EUGENE MD DICTATED DATE/TIME: 07/14/24 1245 Condition at Discharge: Good Final Diagnosis/Problems List Osteomyelitis colon cancer s/p colectomy Discharge Disposition: Home with Health Services Discharge Instruct/Medications Diet: See Comment Diet comment: Diabetic diet Activity: Light activity Follow Up/Referral: 7 days Medications: Ceftriaxone 2 gram daily for 6 weeks Start date: 07/16/2024--> 08/26/2023 Discharge Statement: "Patient was advised to return to the ER or call 911 if any headaches, dizziness, shortness of breath, chest pain, abdominal pain, bleeding, fevers, or worsening of medical condition. Patient was counseled about treatment plan, medications, possible side effects, patientverbalized understanding. All questions were answered to the best of my ability. This discharge took greater then 30 minutes in planning, reviewing documentation, counseling the patient, and discussing with other team members." ASSESSMENT ASSESSMENT Assessment Osteomyelitis colon cancer s/p colectomy Date of Service: Jul 16, 2024 Billing Provider: CRISTHIAN GEORGES MD Common Visit Codes: 06776-ITE/OBS DISCH DAY >30min COREY HADLEY RESIDENT Jul 16, 2024 20:09 CRISTHIAN GEORGES MD Jul 19, 2024 09:16
[2024-07-17 01:00] VITALS: BP 126/65; PULSE 65; RESP 17; TEMP 98.2; O2SAT 98
[2024-07-17 05:00] VITALS: BP 129/71; PULSE 66; RESP 17; TEMP 98.5; O2SAT 99
[2024-07-17 06:37] LABS: Anion Gap 8 (5-15); Carbon Dioxide 21 mmol/L (20-31); Chloride 108 mmol/L (98-107); Sodium 137 mmol/L (136-145)
[2024-07-17 06:38] LABS: Alanine Aminotransferase < 9 U/L (7-40); Alkaline Phosphatase 139 U/L (46-116); BUN/Creatinine Ratio 21.1 (10.0-20.0); Calcium 7.8 mg/dL (8.7-10.4); Glucose 86 mg/dL (74-106)
[2024-07-17 06:40] LABS: Albumin 2.4 g/dL (3.2-4.8); Aspartate Aminotransferase 31 U/L (13-40); Blood Urea Nitrogen 35 mg/dL (9-23)
[2024-07-17 06:41] LABS: Bilirubin, Total 0.3 mg/dL (0.2-1.0); Total Protein 5.2 g/dL (5.7-8.2)
[2024-07-17 07:55] VITALS: PULSE 62; RESP 18; O2SAT 99
[2024-07-17] MEDS: CEFEPIME 2GM/50ML NS 50 ML IV ONE (08:35)
[2024-07-17 09:00] VITALS: BP 122/62; PULSE 63; RESP 16; TEMP 98.4; O2SAT 99
[2024-07-17] MEDS: cefTRIAXone 2GM/50ML D5W 50 ML IV SCH (11:03)
[2024-07-17] MEDS ORDERED: CEPH250C PO (12:28)
[2024-07-17] MEDS ORDERED: GAB100C PO (12:28)
[2024-07-17 12:31] VITALS: BP 122/62; PULSE 63; RESP 16; TEMP 36.9; O2SAT 99
--- NOTE | 2024-07-17 13:30 | DVHPNRES ---
Progress Note Date Seen: Jul 17, 2024 Resident Creating Document: ISABEL CRAFT RESIDENT Medical Necessity Reason Pt with a Central, PICC or Fol: No Subjective Review of Systems Patient was seen and examined this morning. He is sitting in bed eating breakfast. He has good appetites. Patient denied any pain, fever, nausea, chills or foot pain. Order materials for postoperative shoe, patient will be discharged today with Keflex 500 mg p.o. q.i.d.(2g) for four weeks, he will continue wound care every two days and will be seen by heater room helper Objective vital signs Vital Sign Date Time Temp Pulse Resp B/P (MAP) Pulse Ox O2 Delivery O2 Flow Rate FiO2 07/17/24 12:31 36.9 63 16 99 07/17/24 11:00 120/61 07/17/24 07:55 Room Air* 0 21 Total Intake and Output 07/16/24 07/16/24 07/17/24 15:00 23:00 07:00 Intake Total 1750 ml 1040 ml Output Total 1200 ml 965 ml Balance 550 ml 75 ml medications Current Medications Medications Dose Ordered Sig/Jasen Route Start Time Stop Time Status Last Admin Dose Admin Diagnostic Test (Pha) 1 strip IQ4HR 07/08/24 20:00 07/17/24 12:07 1 STRIP Insulin Human Regular IQ4HR SC 07/08/24 20:00 07/16/24 21:26 4 UNITS Dextrose 50 ml UD PRN IV 07/08/24 18:30 Al Hydrox/Mg Hydrox/Simethicone 30 ml Q6HP PRN PO 07/08/24 18:30 Docusate Sodium 100 mg BIDPRN PRN PO 07/08/24 18:30 07/17/24 01:11 100 MG Acetaminophen 650 mg Q6HP PRN PO 07/08/24 18:30 07/13/24 19:04 650 MG Acetaminophen/ Hydrocodone Bitart 1 tab Q4HP PRN PO 07/08/24 18:30 07/17/24 06:11 1 TAB Ondansetron HCl 4 mg Q4HP PRN IV 07/08/24 18:30 Losartan Potassium 50 mg DAILY PO 07/12/24 10:00 07/17/24 08:36 50 MG Amlodipine Besylate 5 mg DAILY PO 07/12/24 10:00 07/17/24 08:36 5 MG Hydralazine HCl 10 mg Q6HP PRN IV 07/11/24 12:30 Gabapentin 100 mg TID PO 07/13/24 22:00 07/17/24 06:11 100 MG Morphine Sulfate 1 mg Q4HP PRN IV 07/14/24 10:15 07/17/24 10:24 1 MG Insulin Glargine 15 units QAM SC 07/15/24 10:00 07/17/24 06:39 15 UNITS Acetaminophen/ Hydrocodone Bitart 1 tab Q4HPRN PRN PO 07/16/24 10:30 Hold Ceftriaxone Sodium/Dextrose 50 ml @ 50 mls/hr DAILY IV 07/17/24 10:00 07/17/24 11:03 50 MLS/HR Examination General examination- Not in acute distress, lying in bed HEENT: PEERLA, no acute nasal discharge Chest: S1-S2 audible, rate and rhythm regular, no murmur Lung: CTAB, no wheeze or rhonchi Abdomen: Nondistend, BS+, nontenderness, no organomegaly Musculoskeletal: no acute joint swelling or tenderness Lower extremity: Right foot covered in bandage. Post amputation Neurological: cranial nerves intact, no acute dysarthria or dysphagia Psychiatry-- Normal mood and affect Skin- no acute rash or purpura laboratory and microbiology Laboratory Tests 07/17/24 05:12 07/15/24 10:40 Test 07/17/24 05:12 Range/Units Serum Glucose 86 74-106 mg/dL Microbiology Date/Time Source Procedure Growth Status 07/14/24 14:20 Nose MRSA Screen - Final Complete 07/10/24 20:57 Stool Clostridium difficile Toxin Assay - Final Complete 07/08/24 13:45 Blood Blood Culture - Final NO GROWTH AFTER 5 DAYS OF INCUBATION. Complete Labs and/or images reviewed: Labs reviewed by me, Image(s) reviewed by me Problem List/Assessment/Plan Problem List/Assessment/Plan Osteomyelitis likely due to diabetic foot ulcer --> Wound culture: staph aureus --> Continue broad spectrum antibiotics ( STOP: Vancomycin, cefepime) --> MRI: positive osteomyelitis -->S/P Right foot I&D and hallux amputation --> continue cefazolin 2gm q8hrs, patient will continue Keflex in outpatient setting Type 2 diabetes mellitus --> Hgb A1c: 6.8 --> Regular insulin --> Lantus 10 unit at night --> Maintain good glycemic index Hypertension --> Amlodipine --> Losartan History of colon cancer --> Currently on capacitabine --> Just completed 5th session of chemotherapy infusion --> Colostomy bag present, changed regular --> still on chemo therapy via PICC line Mild hyponatremia--> improved --> Na: 134 --> Monitor Lactic acidosis --> Lactic acid--> improved --> Monitor KRISTEN due to VMN On IVF Discharge plan: ---> Check pathology report ---> Continue keflex for the next 4 weeks, --> human resources services specialist consulted for home health planning Code status: Full Goal of care discussed for more than 35 minutes Case and plan discussed with Dr. Felix Plan discussed with: Patient, Other (RN) My Orders My Orders Orders - ISABEL CRAFT RESIDENT Procedure Category Date Status Time Ceftriaxone 2gm/50ml PHA 07/17/24 In Process D5w (Rocephin 2gm/5 10:00 * Armature Winder CONS 07/17/24 Transmitted Consult 12:22 Post Op Shoe To ORDERS 07/17/24 Transmitted Affected Area 12:22 Dietary Evaluation Review Comments: Advance to 2gNa CCHO-60 diet when out of foot surgery and medically feasible. Expected Outcomes/Goals: controlled DM, healed wounds Date of Service: Jul 17, 2024 Billing Provider: GENOVEVA FELIX MD Common Visit Codes: [id number] INP/OBS CARE(HIGH) ISABEL CRAFT RESIDENT Jul 17, 2024 13:30 GENOVEVA FELIX MD Jul 17, 2024 20:20
== END 2024-07-17 13:10 | disposition home health service (06) | DRG 616 ==
LOC: ER 12:10 → OVERFLOW 18:21 → WEST WING 23:15 → EAST 07-11 05:28
PROVIDERS: ADMIT Student in an Organized Health Care Education/Training Program; ATTEND Student in an Organized Health Care Education/Training Program
PROC: 0Y9M0ZZ Drainage of Right Foot, Open Approach (ICD-10-PCS; principal; 2024-07-12 12:28)
PROC: 0Y6M0Z9 Detachment at Right Foot, Partial 1st Ray, Open Approach (ICD-10-PCS; 2024-07-14)
DX: E11.69 Type 2 diabetes mellitus with other specified complication (principal); E43 Unspecified severe protein-calorie malnutrition; E87.1 Hypo-osmolality and hyponatremia; L03.115 Cellulitis of right lower limb; L02.611 Cutaneous abscess of right foot; M86.8X7 Other osteomyelitis, ankle and foot; E87.20 Acidosis, unspecified; N17.0 Acute kidney failure with tubular necrosis; E11.621 Type 2 diabetes mellitus with foot ulcer; E11.65 Type 2 diabetes mellitus with hyperglycemia; I10 Essential (primary) hypertension; D63.8 Anemia in other chronic diseases classified elsewhere
CPT/HCPCS: 36415; 71046; 73700; 73718; 80048; 80053; 80202; 81001; 82565; 82962; 83036; 83605; 84484; 84520; 85025; 85610; 85730; 87040; 87070; 87075; 87077; 87081; 87186; 87205; 87493; 93926; 97163; 99291; G0378; J0692; J1100; J1815; J2250; J2405; J2543; J2704; J3490; J7060

== ENCOUNTER 2024-11-19 14:47 | Inpatient (IN) | payer MEDICARE ==
[~2024-11-19] VITALS: Ht 172.7 cm; Wt 69.0 kg
[~2024-11-19 14:47] MED LIST: AMLO1TAB22 PO; ATOR20TA50 PO; CEPH250C PO; GAB100C PO; LOSA-534 PO; PERCOT PO
--- NOTE | 2024-11-19 14:51 | ED.PDOC ---
History of Present Illness HPI Comments 79 year old male MAGDA presents to the ED with chief complaint of generalized weakness. EMS reports that the patient has been experiencing generalized weakness since earlier today with family noting associating slurred speech, but none was noted on scene. EMS relays that the patient's O2 saturation was 83% on RA, but when placed on 2L it went up to 98%, Patient denies any chest pain, SOB, dizziness, headache, N/V, or fever. Chief Complaint: General Weakness Time Seen by MD: 14:50 Reviewed Notes: Nurses Notes, Facilities Specialist Notes, Medications, Allergies Allergies: Coded Allergies: NO KNOWN ALLERGIES (Unverified , 07/08/24) Home Meds Active Scripts Cephalexin (KEFLEX CAPSULE) 250 Mg Cp, 2 CAP PO QID for 28 Days, #224 CAP take 2 pills every 6 hours for 4 weeks Prov:ISABEL CRAFT RESIDENT 07/17/24 Gabapentin (Gabapentin) 100 Mg Cap, 100 MG PO TID for 30 Days, #30 CAP Prov:ISABEL CRAFT RESIDENT 07/17/24 Reported Medications Atorvastatin Calcium (ATORVASTATIN CALCIUM) 20 Mg Tab, 1 TAB PO DAILY, #30 TAB 5 Refills 07/09/24 Amlodipine Besylate (Amlodipine Besylate) 5 Mg Tab, 5 MG PO DAILY for 30 Days, MG 07/09/24 Losartan Potassium (Losartan Potassium) 50 Mg Tab, 50 MG PO DAILY for 30 Days, MG 07/09/24 Oxycodone W/ Acetaminophen (Percocet 5/325MG) 1 Tab Tb, 1 TAB PO QID, #120 TAB 07/09/24 Information Source: Patient, Emergency Med Personnel Mode of Arrival: EMS Severity: Moderate Timing: Hours Duration: Since onset Prehospital treatment: None Past Medical History PAST MEDICAL HISTORY: Cancer, DM, HTN Surgical History: Denies all surgeries Family History Family History: Reviewed,noncontributory to illness Social History Smoker: Non-Smoker Alcohol: Denies ETOH Use Drugs: Denies Drug Use Lives In: Home Constitutional: reports: weakness; denies: chills, diaphoresis, fatigue, fever, malaise, sweats, others EENTM: denies: blurred vision, double vision, ear bleeding, ear discharge, ear drainage, ear pain, ear ringing, eye pain, eye redness, hearing loss, mouth pain, mouth swelling, nasal discharge, nose bleeding, nose congestion, nose pain, photophobia, tearing, throat pain, throat swelling, voice changes, others Respiratory: denies: cough, hemoptysis, orthopnea, SOB at rest, shortness of breath, SOB with excertion, stridor, wheezing, others Cardiovascular: denies: chest pain, dizzy spells, diaphoresis, Dyspnea on exertion, edema, irregular heart beat, left arm pain, lightheadedness, palpitations, PND, syncope, others Gastrointestinal: denies: abdomen distended, abdominal pain, blood streaked bowels, constipated, diarrhea, dysphagia, difficulty swallowing, hematemesis, melena, nausea, poor appetite, poor fluid intake, rectal bleeding, rectal pain, vomiting, others Genitourinary: denies: burning, dysuria, flank pain, frequency, hematuria, incontinence, penile discharge, penile sore, pain, testicle pain, testicle swelling, urgency, others Neurological: denies: dizziness, fainting, headache, left sided numbness, left sided weakness, numbness, paresthesia, pre-existing deficit, right sided numbness, right sided weakness, seizure, speech problems, tingling, tremors, weakness, others Musculoskeletal: denies: back pain, gout, joint pain, joint swelling, muscle pain, muscle stiffness, neck pain, others Integumetry: denies: bruises, change in color, change in hair/nails, dryness, laceration, lesions, lumps, rash, wounds, others Allergic/Immunocompromised: denies: Difficulty Healing, Frequent Infections, Hives, Itching, others Hematologic/Lymphatic: denies: anemia, blood clots, easy bleeding, easy bruising, swollen glands, others Endocrine: denies: excessive hunger, excessive sweating, excessive thirst, excessive urination, flushing, intolerance to cold, intolerance to heat, unexplained weight gain, unexplained weight loss, others Psychiatric: denies: anxiety, bipolar disorder, depression, hopeless, panic disorder, schizophrenia, sleepless, suicidal, others All Other Systems: Reviewed and Negative Physical Exam General Appearance: Moderate Distress, Normal HEENT: Normal ENT Inspection, PERRL/EOMI Neck: Full Range of Motion, Non-Tender, Normal, Normal Inspection Respiratory: Chest Non-Tender, Lungs Clear, No Accessory Muscle Use, No Respira tory Distress, Normal Breath Sounds Cardiovascular: No Edema, No JVD, No Murmur, No Gallop, Normal Peripheral Pulses, Regular Rate/Rhythm Breast Exam: Deferred Gastrointestinal: Distended, No Organomegaly, No Pulsatile Mass, Normal Bowel Sounds, Soft Genitalia: Deferred Pelvic: Deferred Rectal: Deferred Extremities: No calf tenderness, Normal capillary refill, Non-tender, No pedal edema Musculoskeletal : Apperance: Normal Neurologic: Alert, linseed cake trimmer II-XII nml as Tested, No Motor Deficits, Normal Affect, Normal Mood, No Sensory Deficits Cerebellar Function: NOT DONE Reflexes: NOT DONE Skin: Dry, Normal Color, Warm Peripheral Pulses: 3+ Radial (R), 3+ Radial (L) Lymphatic: No Adenopathy Was a procedure done? Was a procedure done?: No Differential Dx Considerations may include: Anemia Electrolyte imbalance X-Ray, Labs, Meds, VS Patient alert. Complaining of generalized weakness. Vitals stable. Answering questions. Unable to get a good history from the patient. Establish intravenous access. Was given fluids. Waiting for family. Continue monitoring. Time of 1ST Reevaluation: 15:49 Reevaluation 1ST: Unchanged Patient Education/Counseling: Diagnosis, Treatment Family Education/Counseling: No Family Present Additional Information The following tests were ordered, and results were reviewed by me: Additional Information was gathered from interviewing the following independent historians: I reviewed and agreed with the following test results read by other providers: I discussed treatment and results with medical personnel and: Patient Comprehensive systems review obtained and negative except for what is stated in the HPI. Departure 1 Departure Time of Disposition: 14:55 Impression: Primary Impression: Diabetes mellitus type 2 with complications, uncontrolled Disposition: 09 ADMITTED INPATIENT Admit to: Med Surg Condition: Guarded Critical Care Note Critical Care Time?: No Stability Stability form required: No Heart Score Heart Score: Heart Score Response (Comments) Value History Slightly Suspicious 0 EKG Normal 0 Age >65 2 Risk Factors 1 or 2 risk factors 1 Troponin Normal limit 0 Total 3 I personally scribed for ADIN VINSON MD ([email or web address]) on 11/19/24 at 14:51. Electronically submitted by Elijah Dos Santos ([email or web address]). ADIN VINSON MD Nov 19, 2024 14:51
[2024-11-19 15:15] VITALS: PULSE 86; RESP 15; O2SAT 95
[2024-11-19] MEDS: SODIUM CHLORIDE 0.9% 1,000 ML IV ONE (15:22)
[2024-11-19 15:29] LABS: Basophils # (auto) 0.1 10 ^3/uL (0-0.2); Basophils % (auto) 0.9 % (0.0-2.0); Eosinophils # (auto) 0.1 10 ^3/uL (0-0.8); Eosinophils % (auto) 2.1 % (0.0-7.0); Hematocrit 27.4 % (41.0-53.0); Hemoglobin 9.4 g/dL (13.5-17.5); Lymphocytes # (auto) 1.7 10 ^3/uL (0.4-5.4); Mean Corpuscular Hemoglobin 34.7 pg (28.0-32.0); Mean Corpuscular Hgb Conc. 34.3 g/dL (32.0-36.0); Mean Corpuscular Volume 101.1 fL (80.0-100.0); Monocytes # (auto) 0.8 10 ^3/uL (0-1.3); Monocytes % (auto) 14.9 % (0.0-12.0); Neutrophils # (auto) 2.8 10 ^3/uL (1.6-8.6); Neutrophils % (auto) 51.1 % (37.0-80.0); Nucleated Red Blood Cells % 0.1 %; Platelet Count (auto) 193 10^3/uL (140-450); Red Blood Cells 2.71 10^6/uL (4.5-5.90); Red Cell Distribution Width 20.7 % (11.8-14.3); White Blood Cell 5.5 10^3/uL (4.4-10.8)
[2024-11-19 15:43] LABS: Anion Gap 6 (5-15); Carbon Dioxide 25 mmol/L (20-31); Chloride 100 mmol/L (98-107); Potassium 4.1 mmol/L (3.5-5.1)
[2024-11-19 15:49] LABS: BUN/Creatinine Ratio 17.1 (10.0-20.0); Blood Urea Nitrogen 22 mg/dL (9-23)
[2024-11-19 15:53] LABS: Calcium 7.7 mg/dL (8.7-10.4); Glucose 107 mg/dL (74-106); Sodium 131 mmol/L (136-145)
--- NOTE | 2024-11-19 16:17 | DVH ---
CHEST RADIOGRAPH Indication: sob Technique: Single frontal view of the chest was obtained Comparison: 07/14/2024 FINDINGS: Lines and Tubes: None Lungs: Unimproved infiltrate in the right base. There is a small right pleural effusion.. Pleura: No effusion. No pneumothorax. Cardiomediastinal contours: Unremarkable Bones: No acute osseous abnormality. IMPRESSION: 1. Unimproved right lower lobe airspace disease but now there is a small right pleural effusion.
--- NOTE | 2024-11-19 16:28 | DVH ---
Exam: CT CT AB PEL WO CON-NO ORAL OR IV History: distended Comparison Study: None available at time of dictation. TECHNIQUE: Multidetector CT of the abdomen was performed from lung bases to pubic symphysis. Imaging was performed without IV contrast. Axial, coronal and sagittal multiplanar reformats were obtained fr om the axial data set by the technologist. Radiation Dose Information: CT Dose: CTDI volume is 21.17 mGy. Dose-length product is 1129.83 mGy*cm FINDINGS: Evaluation of solid organs is limited due to lack of intravenous contrast use. Findings: Lung Bases: No acute or significant lung base finding. Normal heart size. Small to moderate bi later al pleural effusions. Liver: Nodular appearance of the surface of the liver consistent with cirrhotic liver disease Gallbladder and Biliary Tree: cholelithiasis Spleen: Unremarkable Pancreas: The pancreas is grossly normal in appearance. Adrenal Glands: Unremarkable Kidneys: Kidneys are grossly normal without calculi or hydronephrosis. Bladder: Grossly unremarkable for degree of distention. Bowel: The stomach is grossly normal in appearance. Small bowel and colon are normal in caliber and d istribution. The appendix is not visualized; however, no secondary findings of acute appendicitis id entified. Ascites: [id number] ascites throughout the abdomen and pelvis. There are no prior studies for comparison. Lymphadenopathy: No mesenteric, retroperitoneal or periportal lymphadenopathy. Abdominal Wall and Mesentery: Colostomy anterior upper right abdominal wall Vasculature: The visualized abdominal aorta is normal in size and caliber. Evaluation of abdominal a nd pelvic vessels is limited due to lack of intravenous contrast. Pelvic Organs: Unremarkable Musculoskeletal: No aggressive focal bony lesions, acute fractures or dislocation. Soft tissues: Unremarkable IMPRESSION: 1. Colostomy right upper anterior abdominal wall 2. Left pleural effusion and atelectasis left base 3. Moderately large amount of ascites with nodular appearance of the liver suggesting cirrhotic liver disease. 4. . Radiation optimization: All CT scans at this facility use at least one of these dose optimization sanjiv hniques: automated exposure control mA and/or kV adjustment per patient size (includes targeted exam s where dose is matched to clinical indication) or iterative reconstruction.
--- NOTE | 2024-11-19 16:30 | DVH ---
EXAM: CT HEAD WITHOUT CONTRAST INDICATION: CONFUSION TECHNIQUE: CT of the head without intravenous contrast. Radiation Dose Information: CT Dose: CTDI volume is 53.74 mGy. Dose-length product is 863.9 mGy*cm The dose indicators for CT are the volume Computed Tomography (CT) Dose Index (CTDIvol) and the Dose Length Product (DLP), and are measured in units of mGy and mGy-cm, respectively. These indicators are not patient dose, but values generated from the CT scanner acquisition factors. The report includes radiation exposure data for exposures received during this examination. COMPARISON: None FINDINGS: There is no evidence of acute intracranial hemorrhage, extra-axial collection, mass effect, midline s hift, herniation or hydrocephalus. The ventricles, sulci and cisterns are age appropriate. The oconnor-white differentiation is intact. Patchy periventricular and subcortical white matter hypoattenuation is nonspecific but may be related to small vessel ischemic disease. The visualized paranasal sinuses and mastoid air cells are clear. The surrounding soft tissues and osseous structures are unremarkable. IMPRESSION: 1. No acute intracranial hemorrhage. 2. No CT findings of territorial ischemia. 3. No CT findings of displaced skull fracture 4. No CT findings of paranasal sinus or mastoid disease
[2024-11-19] MEDS ORDERED: MORPHINE SULFATE INJ 2 MG/ml SYRG IV PRN (18:15)
[2024-11-19] MEDS ORDERED: NITROGLYCERIN 0.4 MG SL TAB SL PRN (18:15)
--- NOTE | 2024-11-19 18:47 | DVHHPRES ---
History of Present Illness Resident Creating Document: GLADIS RESENDIZ RESIDENT History of Present Illness Patient is 79-year-old male with past medical history of colon cancer status post eight chemotherapy, liver cirrhosis, hepatitis C infection, hypertension, dyslipidemia, status post colostomy who came to the hospital with a chief complaint of generalized weakness, loss of appetite, worsening right upper extremity swelling and abdominal distention. As per family patient is bed- bound, however he was getting confused early in the morning that was the reason patient was brought to the hospital. Patient denied shortness of breath, chest pain, fever, headache, nausea or vomiting or any other symptoms. PMH:colon cancer status post eight chemotherapy, liver cirrhosis, hepatitis C infection, hypertension, dyslipidemia, status post colostomy Past surgical history: Status post colostomy Home medication: Metoprolol, oxycodone, atorvastatin. Personal history: History of drinking excessive alcohol and drug use in very younger age [age] years ago. Allergy: Done Review of Systems Review of Systems Patient is complaining of generalized weakness, abdominal distention and mild right upper extremity swelling. Constitutional: No: Fever, Chills, Sweats, Weakness, Malaise, Other Eyes: No: Pain, Vision change, Conjunctivae inflammation, Eyelid inflammation, Other, Redness ENT: No: Ear pain, Ear discharge, Nose pain, Nose discharge, Nose congestion, Mouth pain, Mouth swelling, Throat pain, Throat swelling, Other Respiratory: No: Cough, Dry, Shortness of breath, SOB with excertion, Wheezing, Hemoptysis, Pleuritic Pain, Sputum, Wheezing, Other Cardiovascular: No: Chest Pain, Palpitations, Orthopnea, Paroxysmal Noc. Dyspnea, Edema, Lt Headedness, Other Gastrointestinal: Abdominal Pain Genitourinary: No Dysuria, No Frequency, No Incontinence, No Hematuria, No Retention, No Other Musculoskeletal: No: other, neck pain, shoulder pain, arm pain, back pain, hand pain, leg pain, foot pain Skin: No: Rash, Lesions, Jaundice, Bruising, Other Neurological: Confusion Allergies: Coded Allergies: NO KNOWN ALLERGIES (Unverified , 07/08/24) Medications Current Medications Medications Dose Ordered Sig/Jasen Route Start Time Stop Time Status Last Admin Dose Admin Nitroglycerin 0.4 mg Q5MINP PRN SL 11/19/24 18:15 UNV Morphine Sulfate 2 mg Q30M PRN IV 11/19/24 18:15 UNV Gabapentin 100 mg TID PO 11/19/24 22:00 UNV Oxycodone/ Acetaminophen 1 tab QID PO 11/19/24 22:00 UNV Furosemide 40 mg BIDD IV 11/20/24 06:00 UNV Spironolactone 25 mg DAILY PO 11/20/24 10:00 UNV Piperacillin Sod/ Tazobactam Sod 100 ml @ 25 mls/hr Q8HR IV 11/19/24 22:00 UNV Azithromycin 500 mg DAILY PO 11/20/24 10:00 UNV Pantoprazole Sodium 40 mg DAILY@0600 PO 11/20/24 06:00 UNV Exam Vital Signs Vital Signs Date Time Temp Pulse Resp B/P (MAP) Pulse Ox O2 Delivery O2 Flow Rate FiO2 11/19/24 15:15 86 15 95 Nasal Cannula* 2 28 11/19/24 15:15 97.8 112/63 (79) 97.8 Exam General Appearance: Cooperative. Well developed. Well nourished. NAD Head Exam: Normal inspection Neck Exam: Normal inspection. Non-tender. Normal alignment Pulmonary/Respiratory: Chest non-tender. Clear bilateral breath sounds Cardiovascular/Chest: Regular rate and rhythm. No murmurs. No JVD. Peripheral Pulses: 2+ Radial (R). 2+ Radial (L). 2+ Pedal (R). 2+ Pedal (L) Abdominal Exam: Normal bowel sounds. Soft. Nontender. No hepatospenomegaly. No masses, presence of colostomy bag, abdomen distended, not rigid. Ankle Exam: Negative ankle edema Lower extremities: Negative lower extremity edema Neuro/Mental Status: A&O x4. Coherent Labs/Xrays Labs Test 11/19/24 15:03 Range/Units White Blood Count 5.5 4.4-10.8 10^3/uL Red Blood Count 2.71 L 4.5-5.90 10^6/uL Hemoglobin 9.4 L 13.5-17.5 g/dL Hematocrit 27.4 L 41.0-53.0 % Mean Corpuscular Volume 101.1 H 80.0-100.0 fL Mean Corpuscular Hemoglobin 34.7 H 28.0-32.0 pg Mean Corpuscular Hemoglobin Concent 34.3 32.0-36.0 g/dL Red Cell Distribution Width 20.7 H 11.8-14.3 % Platelet Count 193 140-450 10^3/uL Mean Platelet Volume 7.4 6.9-10.8 fL Neutrophils (%) (Auto) 51.1 37.0-80.0 % Lymphocytes (%) (Auto) 31.0 10.0-50.0 % Monocytes (%) (Auto) 14.9 H 0.0-12.0 % Eosinophils (%) (Auto) 2.1 0.0-7.0 % Basophils (%) (Auto) 0.9 0.0-2.0 % Neutrophils # (Auto) 2.8 1.6-8.6 10 ^3/uL Lymphocytes # (Auto) 1.7 0.4-5.4 10 ^3/uL Monocytes # (Auto) 0.8 0-1.3 10 ^3/uL Eosinophils # (Auto) 0.1 0-0.8 10 ^3/uL Basophils # (Auto) 0.1 0-0.2 10 ^3/uL Nucleated Red Blood Cells 0.1 % Sodium Level 131 L 136-145 mmol/L Potassium Level 4.1 3.5-5.1 mmol/L Chloride Level 100 98-107 mmol/L Carbon Dioxide Level 25 20-31 mmol/L Anion Gap 6 5-15 Blood Urea Nitrogen 22 9-23 mg/dL Creatinine 1.29 0.700-1.30 mg/dL Glomerular Filtration Rate Calc 56 >90 mL/min BUN/Creatinine Ratio 17.1 10.0-20.0 Serum Glucose 107 H 74-106 mg/dL Calcium Level 7.7 L 8.7-10.4 mg/dL Troponin I High Sensitivity 6 </=54 ng/L Assessment/Plan Assessment/Plan Acute respiratory failure due to pleural effusion Questionable pneumonia Gram-positive versus Gram-negative Severe protein malnutrition Moderate ascites likely due to liver cirrhosis Liver cirrhosis History of hepatitis C infection 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 Hypertension Chronic back pain Plan/recommendation -continue on 2 L oxygen via nasal cannula, pending respiratory culture. CT scan of abdomen chest showed left pleural effusion, chest x-ray questionable right- sided pleural effusion, moderate amount of ascites with nodular appearance of liver cirrhosis. -IV Lasix 40 mg b.i.d, albumin 12.5 g 25% once. Reassess status. -spironolactone 20 mg p.o. daily -continue to monitor urine output -radiology consultation for thoracentesis and paracentesis -pending iron panel, likely microcytic anemia related to folic or B12 deficiency. Pending folic and B12 level. -IV antibiotic with Zosyn and azithromycin -pain management with oxycodone, morphine as needed. -PUD prophylaxis with Protonix -DVT prophylaxis with SCD Discussed all clinical plan with family including daughter and son, goals of care discussed with patient greater than 24 minutes, code status. Plan discussed with Dr. Blakely Plan discussed with: Patient, Other (RN) My Orders Orders - GLADIS RESENDIZ Procedure Category Date Status Time Admit ADMIT 11/19/24 Transmitted 18:10 Code Status CODE 11/19/24 Transmitted 18:10 Vital Signs MACHO 11/19/24 In Process 18:10 Review Orders With BANNER 11/19/24 In Process Adm. 18:10 Notify Md Of Changes MACHO 11/19/24 In Process From Base 18:10 Advance Directive MACHO 11/19/24 In Process 18:10 Patient Condition ORDERS 11/19/24 Transmitted 18:10 Allergies MCAHO 11/19/24 In Process 18:10 Nitroglycerin PHA 11/19/24 Logged Sublingual (Ntrostat 18:15 Morphine Sulfate PHA 11/19/24 Logged Injection 18:15 Oxygen By Nasal RT 11/19/24 Transmitted Cannula 18:10 PTPTT LAB 11/19/24 In Process 18:18 Urinalysis LAB 11/19/24 Logged 18:18 Comprehensive LAB 11/19/24 Logged Metabolic Panel 18:18 B-Type Natriuretic LAB 11/20/24 Verified Peptide 04:00 Rapid Influenza A&B LAB 11/19/24 Logged 18:18 Covid19 Antigen Ivis LAB 11/19/24 Logged Blood Culture DERRICK 11/19/24 Logged 18:18 * Radiologist Consult CONS 11/19/24 Transmitted 18:18 * Radiologist Consult CONS 11/19/24 Transmitted 18:18 Gabapentin Capsule PHA 11/19/24 Logged (Neurontin Capsule) 22:00 Oxycodone W/ Acet PHA 11/19/24 Logged 5/325mg Tab (Percocet 22:00 Furosemide Injection PHA 11/19/24 Logged (Lasix Injection) 18:30 Furosemide Injection PHA 11/20/24 Logged (Lasix Injection) 06:00 Spironolactone PHA 11/19/24 Logged (Aldactone) 18:30 Spironolactone PHA 11/20/24 Logged (Aldactone) 10:00 Respiratory Culture DERRICK 11/19/24 Logged W/ Gs 18:22 Iron Panel LAB 11/19/24 In Process 18:22 Erythrocyte LAB 11/19/24 In Process Sedimentation Rate 18:22 Consult For Nutrition NOURISH 11/19/24 Transmitted 18:22 Piperacillin-Tazob PHA 11/19/24 Logged 3.375gm (Zosyn 3.375g 22:00 Piperacillin-Tazob PHA 11/19/24 Logged 3.375gm (Zosyn 3.375g 18:30 Azithromycin Tablet PHA 11/19/24 Logged (Zithromax Tablet) 18:30 Azithromycin Tablet PHA 11/20/24 Logged (Zithromax Tablet) 10:00 Vitamin B12 LAB 11/19/24 Logged 18:27 Folate (Folic Acid) LAB 11/19/24 Logged 18:27 Pantoprazole Tablet PHA 11/19/24 Logged (Protonix Tablet) 18:30 Pantoprazole Tablet PHA 11/20/24 Logged (Protonix Tablet) 06:00 Sequential MACHO 11/19/24 In Process Compression Device 18:27 Albumin 25% (Albutein) PHA 11/19/24 Logged 18:30 Thyroid Stimulating LAB 11/19/24 Verified Hormone 18:31 Date of Service: Nov 19, 2024 Billing Provider: LISSETTE BLAKELY MD Common Visit Codes: 64985-ICIURSM INP/OBS CARE (HIGH) Secondary Visit Codes: 67230-[id number] CARE PLAN 30 MINUTES GLADIS RESENDIZ RESIDENT Nov 19, 2024 18:47 LISSETTE BLAKELY MD Nov 19, 2024 19:08
--- NOTE | 2024-11-19 19:00 | ECG ---
[facility] Test Date: 2024-11-19 Test Time: 14:55:56 Pat Name: JOVAN LIEBERMAN Department: ED Room: 0219T Gender: M Lehr Cutter: YSOELIN : 1945 Requested By: ADIN VINSON Order Number: [id number] Reading MD: Charlie Caputo Measurements Intervals [place] Rate: 110 P: 0 VA: 92 QRS: -22 QRSD: 173 T: 142 QT: 436 QTc: 591 Interpretive Statements Sinus tachycardia IVCD, consider atypical LBBB Baseline wander in lead(s) II Electronically Signed On 11-24-2024 12:38:46 PDT by Charlie Caputo Please click the below link to view image of tracing.
[2024-11-19 19:14] LABS: % Iron Saturation 26.2 % (20-55)
[2024-11-19 19:28] LABS: INR 1.14 (0.9-1.15); Partial Thromboplastin Time 36.5 SEC (24.5-34.5); Prothrombin Time 11.9 sec (9.3-11.8)
[2024-11-19 19:47] LABS: Alanine Aminotransferase 14 U/L (7-40); Anion Gap 7 (5-15); Aspartate Aminotransferase 37 U/L (13-40); Blood Urea Nitrogen 18 mg/dL (9-23); Carbon Dioxide 23 mmol/L (20-31); Chloride 101 mmol/L (98-107); Potassium 3.9 mmol/L (3.5-5.1); Total Protein 5.9 g/dL (5.7-8.2)
[2024-11-19 19:48] LABS: Albumin 2.3 g/dL (3.2-4.8); Alkaline Phosphatase 119 U/L (46-116); Bilirubin, Total 0.6 mg/dL (0.2-1.0); Calcium 7.8 mg/dL (8.7-10.4); Glucose 113 mg/dL (74-106); Sodium 131 mmol/L (136-145)
[2024-11-19 20:13] LABS: Urine Bacteria None Seen /hpf (None Seen)
[2024-11-19 20:34] LABS: Urine Blood TRACE /uL (Negative); Urine Clarity Clear (Clear); Urine Color Dark-Yellow (Yellow); Urine Protein, UAD TRACE (Negative); Urine Specific Gravity 1.016 (1.001-1.035); Urine Squamous Epithelial Cell FEW /hpf (<5); Urine Urobilinogen Normal (Negative); Urine WBC 2 /HPF (0-3)
[2024-11-19] MEDS: ALBUMIN 25% 50 ML IV ONE (21:16)
[2024-11-19] MEDS: FUROSEMIDE 40 MG/4 ML VIAL IV ONE (21:17)
[2024-11-19] MEDS: PANTOPRAZOLE 40 MG TAB PO ONE (21:17)
[2024-11-19] MEDS: AZITHROMYCIN 250 MG TAB PO ONE (21:18)
[2024-11-19] MEDS: SPIRONOLACTONE 25 MG TAB PO ONE (21:18)
[2024-11-19 21:33] LABS: COVID19 ANTIGEN SOFIA FIA NEGATIVE (NEGATIVE)
[2024-11-19 21:34] LABS: Rapid Influenza A Negative (Negative); Rapid Influenza B Negative (Negative)
[2024-11-19] MEDS: OXYCODONE W/ ACETAMINOPHEN 5/325MG TABLET PO SCH (21:34)
[2024-11-19] MEDS ORDERED: PIPERACILLIN-TAZOB 3.375GM 100 ML IV SCH (22:00)
[2024-11-19] MEDS: PIPERACILLIN-TAZOB 3.375GM 100 ML IV ONE (22:00)
[2024-11-19 22:32] LABS: Erythrocyte Sedimentation Rate 34 mm/hr (0-20)
[2024-11-19] MEDS: GABAPENTIN 100 MG CAP PO SCH (22:37)
[2024-11-19 23:59] VITALS: BP 95/6; PULSE 83; RESP 17; TEMP 97.8; O2SAT 92
[2024-11-20] VITALS (9 sets, daily range): BP systolic 93–128; BP diastolic 53–82; PULSE 69–94; RESP 16–18; TEMP 97.1–98.8; O2SAT 91–100
[2024-11-20] MEDS: PIPERACILLIN-TAZOB 3.375GM 100 ML IV SCH (02:22)
[2024-11-20] MEDS: PANTOPRAZOLE 40 MG TAB PO SCH (06:22)
[2024-11-20] MEDS: FUROSEMIDE 40 MG/4 ML VIAL IV SCH (06:23)
[2024-11-20] MEDS: SPIRONOLACTONE 25 MG TAB PO SCH (11:17)
[2024-11-20] MEDS: AZITHROMYCIN 250 MG TAB PO SCH (11:18)
--- NOTE | 2024-11-20 13:06 | DVHPN2 ---
Subjective The patient is seen and examined at bedside. Complain of weakness and tired. Daughter at bedside. They had a lot of question. Reviewed: Care Plan, H&P, Labs, Medications, Previous Orders, Radiology Changes from previous H/P or p: No Changes General: Per HPI Eyes: No Pain, No Vision change, No Conjunctivae inflammation, No Eyelid inflammation, No Other, No Redness ENT: No Ear pain, No Ear discharge, No Nose pain, No Nose discharge, No Nose congestion, No Mouth pain, No Mouth swelling, No Throat pain, No Throat swelling, No Other Cardiovascular: No Chest Pain, No Palpitations, No Orthopnea, No Paroxysmal Noc. Dyspnea, No Edema, No Lt Headedness, No Other Respiratory: No Cough, No Dry, No Shortness of breath, No SOB with excertion, No Wheezing, No Hemoptysis, No Pleuritic Pain, No Sputum, No Other Gastrointestinal: Abdominal Pain Genitourinary: No Dysuria, No Frequency, No Incontinence, No Hematuria, No Retention, No Other Musculoskeletal: No other, No neck pain, No shoulder pain, No arm pain, No back pain, No hand pain, No leg pain, No foot pain Skin: No Rash, No Lesions, No Jaundice, No Bruising, No Other Objective Vitals Vital Signs Date Time Temp Pulse Resp B/P (MAP) Pulse Ox O2 Delivery O2 Flow Rate FiO2 11/20/24 08:44 98.7 80 18 128/82 (97) 97 98.7 11/20/24 07:30 Nasal Cannula* 2 28 Intake/Output Intake and Output 11/20/24 07:00 Intake Total 1250 ml Balance 1250 ml Intake Oral 0 ml IV Total 1250 ml General Appearance: Alert, No acute distress HEENT: Atraumatic, PERRLA, EOMI, Mucous membr. moist/pink Neck: Supple Lungs: Clear to auscultation, Normal air movement Cardiovascular: Regular rate, Normal S1, Normal S2, No murmurs, Gallops, Rubs Abdomen: Normal bowel sounds, Soft, No tenderness Neuro: Cranial nerves 3-12 NL Psych/Mental Status: Mental status NL Medications Current Medications Medications Dose Ordered Sig/Jasen Route Start Time Stop Time Status Last Admin Dose Admin Nitroglycerin 0.4 mg Q5MINP PRN SL 11/19/24 18:15 Morphine Sulfate 2 mg Q30M PRN IV 11/19/24 18:15 Gabapentin 100 mg TID PO 11/19/24 22:00 11/20/24 06:21 100 MG Oxycodone/ Acetaminophen 1 tab QID PO 11/19/24 22:00 11/20/24 06:22 1 TAB Furosemide 40 mg BIDD IV 11/20/24 06:00 11/20/24 06:23 40 MG Spironolactone 25 mg DAILY PO 11/20/24 10:00 11/20/24 11:17 25 MG Azithromycin 500 mg DAILY PO 11/20/24 10:00 11/20/24 11:18 500 MG Pantoprazole Sodium 40 mg DAILY@0600 PO 11/20/24 06:00 11/20/24 06:22 40 MG Piperacillin Sod/ Tazobactam Sod 100 ml @ 25 mls/hr Q8H IV 11/20/24 03:00 11/20/24 11:18 25 MLS/HR Laboratory Results Laboratory Tests 11/19/24 15:03 11/19/24 18:55 Chemistry Test 11/19/24 15:03 11/19/24 18:55 Calcium Level 7.7 mg/dL (8.7-10.4) L 7.8 mg/dL (8.7-10.4) L Albumin 2.3 g/dL (3.2-4.8) L Total Protein 5.9 g/dL (5.7-8.2) Coagulation Test 11/19/24 15:03 Prothrombin Time 11.9 sec (9.3-11.8) H Prothrombin Time INR 1.14 (0.9-1.15) Activated Partial Thromboplast Time 36.5 SEC (24.5-34.5) H Cardiac Markers Test 11/20/24 06:07 B-Type Natriuretic Peptide 416.20 pg/mL (0-100) LFT Test 11/19/24 18:55 Alanine Aminotransferase (ALT) 14 U/L (7-40) Alkaline Phosphatase 119 U/L (46-116) H Aspartate Amino Transferase (AST) 37 U/L (13-40) Total Bilirubin 0.6 mg/dL (0.2-1.0) HgA1c, TSH Test 11/19/24 15:03 Thyroid Stimulating Hormone (TSH) 66.19 uIU/mL (0.55-4.78) H Urinalysis Test 11/19/24 19:42 Urine Color Dark-yellow (Yellow) Urine Clarity Clear (Clear) Urine pH 6.0 (5.0-9.0) Urine Specific [place] 1.016 (1.001-1.035) Urine Protein Trace (Negative) H Urine Ketones Negative (Negative) Urine Blood Trace /uL (Negative) H Urine Nitrite Negative (Negative) Urine Bilirubin Negative (Negative) Urine Urobilinogen Normal mg/dL (Negative) Urine Leukocyte Esterase Negative /uL (Negative) Urine RBC 9 /hpf (0 - 3) Urine Microscopic WBC 2 /HPF (0-3) Urine Squamous Epithelial Cells Few /hpf (<5) Urine Bacteria None seen /hpf (None Seen) Urine Glucose Normal mg/dL (Normal) Labs and/or images reviewed: Labs reviewed by me Assessment/Plan Assessment/Plan Acute respiratory failure due to pleural effusion Questionable pneumonia Gram-positive versus Gram-negative Severe protein malnutrition Moderate ascites likely due to liver cirrhosis Liver cirrhosis History of hepatitis C infection 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 Hypertension Chronic back pain Plan -continue on 2 L oxygen via nasal cannula, pending respiratory culture. CT scan of abdomen chest showed left pleural effusion, chest x-ray questionable right- sided pleural effusion, moderate amount of ascites with nodular appearance of liver cirrhosis. Waiting for IR for thoracocentesis, left chest -IV Lasix 40 mg b.i.d, albumin 12.5 g 25% once. -spironolactone 20 mg p.o. daily -continue to monitor urine output -radiology consultation for thoracentesis and paracentesis -pending iron panel, likely microcytic anemia related to folic or B12 deficiency. Pending folic and B12 level. -IV antibiotic with Zosyn and azithromycin -pain management with oxycodone, morphine as needed. -PUD prophylaxis with Protonix -DVT prophylaxis with SCD This medical document was created using an electronic medical record system with [employer] direct computerized dictation system. Although this document has been carefully reviewed, there may still be some phonetic and typographical errors. These areas are purely typographical due to imperfections of the software programs, and do not reflect any compromise in the patient's medical care. Plan discussed with: Patient, Daughter, Son Date of Service: Nov 20, 2024 Billing Provider: NADIA NEGRON MD Common Visit Codes: [id number] INP/OBS CARE(HIGH) NADIA NEGRON MD Nov 20, 2024 13:06
--- NOTE | 2024-11-20 17:51 | DVH ---
US Rt Upper DVT HISTORY: SWELLING COMPARISON: None TECHNIQUE: Duplex Doppler evaluation of the deep venous system of the lower neck and proximal upper e xtremity(ies), including color Doppler and spectral/pulsed waveform analysis was performed. FINDINGS: Right: - Internal jugular vein: Compressible - Brachiocephalic vein: Visible portion is patent - Subclavian vein: Visible portion is patent - Axillary vein: Visible portion is patent - Brachial vein: Compressible - Cephalic vein: Compressible - Basilic vein: Compressible - Ulnar vein: Compressible - Radial vein: Compressible - Other: Nothing IMPRESSION: No right upper extremity deep venous thrombosis.
[2024-11-20] MEDS: LACTULOSE 20Gm/30ML SOLN PO SCH (22:20)
[2024-11-21] VITALS (9 sets, daily range): BP systolic 88–119; BP diastolic 45–68; PULSE 68–87; RESP 17–19; TEMP 97.5–99.4; O2SAT 91–100
[2024-11-21] MEDS ORDERED: LACTULOSE 20Gm/30ML SOLN PO PRN (07:15)
--- NOTE | 2024-11-21 22:54 | DVHPN2 ---
Subjective The patient is seen and examined at bedside. Still complain of shortness for breath. Reviewed: Care Plan, H&P, Labs, Medications, Previous Orders, Radiology Changes from previous H/P or p: No Changes Eyes: No Pain, No Vision change, No Conjunctivae inflammation, No Eyelid inflammation, No Other, No Redness ENT: No Ear pain, No Ear discharge, No Nose pain, No Nose discharge, No Nose congestion, No Mouth pain, No Mouth swelling, No Throat pain, No Throat swelling, No Other Cardiovascular: No Chest Pain, No Palpitations, No Orthopnea, No Paroxysmal Noc. Dyspnea, No Edema, No Lt Headedness, No Other Respiratory: No Cough, No Dry, No Shortness of breath, No SOB with excertion, No Wheezing, No Hemoptysis, No Pleuritic Pain, No Sputum, No Other Gastrointestinal: Abdominal Pain Genitourinary: No Dysuria, No Frequency, No Incontinence, No Hematuria, No Retention, No Other Musculoskeletal: No other, No neck pain, No shoulder pain, No arm pain, No back pain, No hand pain, No leg pain, No foot pain Skin: No Rash, No Lesions, No Jaundice, No Bruising, No Other Objective Vitals Vital Signs Date Time Temp Pulse Resp B/P (MAP) Pulse Ox O2 Delivery O2 Flow Rate FiO2 11/21/24 21:00 97.6 77 19 95/54 (68) 99 97.6 11/21/24 07:30 Nasal Cannula* 2 28 Intake/Output Intake and Output 11/21/24 07:00 Intake Total 350 ml Output Total 1050 ml Balance -700 ml Intake Oral 50 ml IV Total 300 ml Output Urine Total 1050 ml # Bowel Movements 1 General Appearance: Alert, No acute distress HEENT: Atraumatic, PERRLA, EOMI, Mucous membr. moist/pink Neck: Supple Lungs: Clear to auscultation, Normal air movement Cardiovascular: Regular rate, Normal S1, Normal S2, No murmurs, Gallops, Rubs Abdomen: Normal bowel sounds, Soft, No tenderness Neuro: Cranial nerves 3-12 NL Psych/Mental Status: Mental status NL Medications Current Medications Medications Dose Ordered Sig/Jasen Route Start Time Stop Time Status Last Admin Dose Admin Nitroglycerin 0.4 mg Q5MINP PRN SL 11/19/24 18:15 Morphine Sulfate 2 mg Q30M PRN IV 11/19/24 18:15 Gabapentin 100 mg TID PO 11/19/24 22:00 11/21/24 21:35 100 MG Oxycodone/ Acetaminophen 1 tab QID PO 11/19/24 22:00 11/21/24 05:52 1 TAB Furosemide 40 mg BIDD IV 11/20/24 06:00 11/20/24 06:23 40 MG Spironolactone 25 mg DAILY PO 11/20/24 10:00 11/21/24 09:31 25 MG Azithromycin 500 mg DAILY PO 11/20/24 10:00 11/21/24 09:31 500 MG Pantoprazole Sodium 40 mg DAILY@0600 PO 11/20/24 06:00 11/21/24 05:52 40 MG Piperacillin Sod/ Tazobactam Sod 100 ml @ 25 mls/hr Q8H IV 11/20/24 03:00 11/21/24 18:32 25 MLS/HR Lactulose 30 ml Q8HP PRN PO 11/21/24 07:15 Levothyroxine Sodium 100 mcg QAM@0600 PO 11/22/24 06:00 Levothyroxine Sodium 25 mcg QAM@0600 PO 11/22/24 06:00 Laboratory Results Laboratory Tests 11/19/24 15:03 11/19/24 18:55 HgA1c, TSH Test 11/21/24 13:31 Thyroid Stimulating Hormone (TSH) 72.13 uIU/mL (0.55-4.78) H Urinalysis Test 11/19/24 19:42 Urine Color Dark-yellow (Yellow) Urine Clarity Clear (Clear) Urine pH 6.0 (5.0-9.0) Urine Specific [place] 1.016 (1.001-1.035) Urine Protein Trace (Negative) H Urine Ketones Negative (Negative) Urine Blood Trace /uL (Negative) H Urine Nitrite Negative (Negative) Urine Bilirubin Negative (Negative) Urine Urobilinogen Normal mg/dL (Negative) Urine Leukocyte Esterase Negative /uL (Negative) Urine RBC 9 /hpf (0 - 3) Urine Microscopic WBC 2 /HPF (0-3) Urine Squamous Epithelial Cells Few /hpf (<5) Urine Bacteria None seen /hpf (None Seen) Urine Glucose Normal mg/dL (Normal) Microbiology Microbiology Date/Time Source Procedure Growth Status 11/19/24 18:55 Blood Blood Culture - Preliminary NO GROWTH AFTER 48 HOURS OF INCUBATION. 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 Hypertension Chronic back pain Plan -continue on 2 L oxygen via nasal cannula, pending respiratory culture. CT scan of abdomen chest showed left pleural effusion, chest x-ray questionable right- sided pleural effusion, moderate amount of ascites with nodular appearance of liver cirrhosis. Waiting for IR for thoracocentesis, left chest -IV Lasix 40 mg b.i.d, albumin 12.5 g 25% once. -spironolactone 20 mg p.o. daily -continue to monitor urine output -radiology consultation for thoracentesis and paracentesis -pending iron panel, likely microcytic anemia related to folic or B12 deficiency. Pending folic and B12 level. -IV antibiotic with Zosyn and azithromycin -pain management with oxycodone, morphine as needed. -PUD prophylaxis with Protonix -DVT prophylaxis with SCD Still waiting for IR for thoracocentesis This medical document was created using an electronic medical record system with [employer] direct computerized dictation system. Although this document has been carefully reviewed, there may still be some phonetic and typographical errors. These areas are purely typographical due to imperfections of the software programs, and do not reflect any compromise in the patient's medical care. Plan discussed with: Patient, Daughter My Orders Orders - NADIA NEGRON MD Procedure Category Date Status Time Lactulose Oral PHA 11/21/24 In Process 07:15 Free T4 (Free LAB 11/21/24 In Process Thyroxine) 13:11 Levothyroxine Tablet PHA 11/22/24 In Process (Synthroid Tablet) 06:00 Levothyroxine Tablet PHA 11/22/24 In Process (Synthroid Tablet) 06:00 Date of Service: Nov 21, 2024 Billing Provider: NADIA NEGRON MD Common Visit Codes: [id number] INP/OBS CARE(HIGH) NADIA NEGRON MD Nov 21, 2024 22:54
[2024-11-22] VITALS (9 sets, daily range): BP systolic 93–126; BP diastolic 47–58; PULSE 3–85; RESP 16–19; TEMP 97.3–98.7; O2SAT 91–99
[2024-11-22] MEDS: LEVOTHYROXINE SODIUM 100 MCG TAB PO SCH (05:30)
[2024-11-22] MEDS: LEVOTHYROXINE SODIUM 25 MCG TAB PO SCH (05:30)
--- NOTE | 2024-11-22 08:09 | DVH ---
ULTRASOUND ABDOMEN limited, 4 QUADRANTS INDICATION: FLUID CHECK FOR POSSIBLE PARACENTESIS Evaluate for ascites. TECHNIQUE: The four quadrants of the abdomen were scanned in ash-scale to assess for the presence of ascites. N o solid organ assessment was performed. FINDINGS: Small volume ascites IMPRESSIONS: 1. Small volume ascites
--- NOTE | 2024-11-22 08:10 | DVH ---
Bilateral Chest Sonogram Date: 11/22/2024 07:26 AM Clinical history: FLUID CHECK FOR POSSIBLE THORACENTESIS Findings: Limited sonographic evaluation of the right and left chest was performed to localize and meño fluid f or thoracentesis. There is a small pleural effusion. IMPRESSION: Small bilateral pleural effusion END IMPRESSION:
[2024-11-22 11:23] LABS: Folate (Folic Acid) 27.32 ng/mL (>5.38)
--- NOTE | 2024-11-22 11:42 | DVH ---
INDICATION: POST THORACENTESIS TECHNIQUE: Frontal view of the chest. COMPARISON: XY CHEST PORTABLE on DOS: 11/19/24 FINDINGS: . The heart and mediastinal contours are grossly unremarkable. There is no evidence of pleural disea se. The lungs are clear. The bony structures of the chest are intact without fracture. IMPRESSION: 1. Pleural effusion no pneumothorax status post thoracentesis. Decreased right pleural effusion.
--- NOTE | 2024-11-22 12:04 | DVHPN2 ---
Subjective The patient is seen and examined at bedside. Still complain of shortness for breath. Status post paracentesis and thoracocentesis Reviewed: Care Plan, H&P, Labs, Medications, Previous Orders, Radiology Changes from previous H/P or p: No Changes General: Per HPI Eyes: No Pain, No Vision change, No Conjunctivae inflammation, No Eyelid inflammation, No Other, No Redness ENT: No Ear pain, No Ear discharge, No Nose pain, No Nose discharge, No Nose congestion, No Mouth pain, No Mouth swelling, No Throat pain, No Throat swelling, No Other Cardiovascular: No Chest Pain, No Palpitations, No Orthopnea, No Paroxysmal Noc. Dyspnea, No Edema, No Lt Headedness, No Other Respiratory: No Cough, No Dry, No Shortness of breath, No SOB with excertion, No Wheezing, No Hemoptysis, No Pleuritic Pain, No Sputum, No Other Gastrointestinal: Abdominal Pain Genitourinary: No Dysuria, No Frequency, No Incontinence, No Hematuria, No Retention, No Other Musculoskeletal: No other, No neck pain, No shoulder pain, No arm pain, No back pain, No hand pain, No leg pain, No foot pain Skin: No Rash, No Lesions, No Jaundice, No Bruising, No Other Objective Vitals Vital Signs Date Time Temp Pulse Resp B/P (MAP) Pulse Ox O2 Delivery O2 Flow Rate FiO2 11/22/24 09:00 97.6 68 19 107/55 (72) 92 97.6 11/21/24 20:00 Nasal Cannula* 3 32 Intake/Output Intake and Output 11/22/24 07:00 Intake Total 1900 ml Output Total 601 ml Balance 1299 ml Intake Oral 1800 ml IV Total 100 ml Output Urine Total 600 ml Urine/Stool Mix 1 ml # Voids 1 # Bowel Movements 2 General Appearance: Alert, No acute distress HEENT: Atraumatic, PERRLA, EOMI, Mucous membr. moist/pink Neck: Supple Lungs: Clear to auscultation, Normal air movement Cardiovascular: Regular rate, Normal S1, Normal S2, No murmurs, Gallops, Rubs Abdomen: Normal bowel sounds, Soft, No tenderness Neuro: Cranial nerves 3-12 NL Psych/Mental Status: Mental status NL Medications Current Medications Medications Dose Ordered Sig/Jasen Route Start Time Stop Time Status Last Admin Dose Admin Nitroglycerin 0.4 mg Q5MINP PRN SL 11/19/24 18:15 Morphine Sulfate 2 mg Q30M PRN IV 11/19/24 18:15 Gabapentin 100 mg TID PO 11/19/24 22:00 11/21/24 21:35 100 MG Oxycodone/ Acetaminophen 1 tab QID PO 11/19/24 22:00 11/21/24 05:52 1 TAB Furosemide 40 mg BIDD IV 11/20/24 06:00 11/20/24 06:23 40 MG Spironolactone 25 mg DAILY PO 11/20/24 10:00 11/22/24 10:58 25 MG Azithromycin 500 mg DAILY PO 11/20/24 10:00 11/22/24 10:58 500 MG Pantoprazole Sodium 40 mg DAILY@0600 PO 11/20/24 06:00 11/22/24 05:30 40 MG Piperacillin Sod/ Tazobactam Sod 100 ml @ 25 mls/hr Q8H IV 11/20/24 03:00 11/22/24 10:57 25 MLS/HR Lactulose 30 ml Q8HP PRN PO 11/21/24 07:15 Levothyroxine Sodium 100 mcg QAM@0600 PO 11/22/24 06:00 11/22/24 05:30 100 MCG Levothyroxine Sodium 25 mcg QAM@0600 PO 11/22/24 06:00 11/22/24 05:30 25 MCG Laboratory Results Laboratory Tests 11/19/24 15:03 11/19/24 18:55 HgA1c, TSH Test 11/21/24 13:31 Thyroid Stimulating Hormone (TSH) 72.13 uIU/mL (0.55-4.78) H Urinalysis Test 11/19/24 19:42 Urine Color Dark-yellow (Yellow) Urine Clarity Clear (Clear) Urine pH 6.0 (5.0-9.0) Urine Specific [place] 1.016 (1.001-1.035) Urine Protein Trace (Negative) H Urine Ketones Negative (Negative) Urine Blood Trace /uL (Negative) H Urine Nitrite Negative (Negative) Urine Bilirubin Negative (Negative) Urine Urobilinogen Normal mg/dL (Negative) Urine Leukocyte Esterase Negative /uL (Negative) Urine RBC 9 /hpf (0 - 3) Urine Microscopic WBC 2 /HPF (0-3) Urine Squamous Epithelial Cells Few /hpf (<5) Urine Bacteria None seen /hpf (None Seen) Urine Glucose Normal mg/dL (Normal) Microbiology Microbiology Date/Time Source Procedure Growth Status 11/22/24 10:35 Pleural Fluid Received 11/19/24 18:55 Blood Blood Culture - Preliminary NO GROWTH AFTER 48 HOURS OF INCUBATION. 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 Hypertension Chronic back pain Plan -continue on 2 L oxygen via nasal cannula, pending respiratory culture. CT scan of abdomen chest showed left pleural effusion, chest x-ray questionable right- sided pleural effusion, moderate amount of ascites with nodular appearance of liver cirrhosis. Waiting for IR for thoracocentesis, left chest -IV Lasix 40 mg b.i.d, albumin 12.5 g 25% once. -spironolactone 20 mg p.o. daily -continue to monitor urine output -radiology consultation for thoracentesis and paracentesis -pending iron panel, likely microcytic anemia related to folic or B12 deficiency. Pending folic and B12 level. -IV antibiotic with Zosyn and azithromycin -pain management with oxycodone, morphine as needed. -PUD prophylaxis with Protonix -DVT prophylaxis with SCD Status post paracentesis and thoracocentesis. Discuss with family son and daughter they one to see if we can place the PleurX and they will get the patient home with hospice. I request family to ask the hospice agency that have been in contact with them to see if they capable of handle PleurX at home. If they can I will consult IR to place PleurX and plan to discharge. This medical document was created using an electronic medical record system with [employer] direct computerized dictation system. Although this document has been carefully reviewed, there may still be some phonetic and typographical errors. These areas are purely typographical due to imperfections of the software programs, and do not reflect any compromise in the patient's medical care. Plan discussed with: Patient, Daughter, Son My Orders Orders - NADIA NEGRON MD Procedure Category Date Status Time Levothyroxine Tablet PHA 4/21/25 In Process (Synthroid Tablet) 06:00 Levothyroxine Tablet PHA 11/22/24 In Process (Synthroid Tablet) 06:00 Thoracentesis US 11/22/24 Taken 09:27 Paracentesis US 11/22/24 Taken 09:28 Date of Service: Nov 22, 2024 Billing Provider: NADIA NEGRON MD Common Visit Codes: [id number] INP/OBS CARE(HIGH) NADIA NEGRON MD Nov 22, 2024 12:04
--- NOTE | 2024-11-22 12:21 | DVH ---
US PARACENTESIS, HISTORY: ASCITES PROCEDURE: Informed consent was obtained. The patient was placed in supine position. A limited locali zation ultrasound of the abdomen was obtained, and the skin site over the largest pocket of fluid was marked and entry site was prepped with chlorhexidine which was allowed to dry and draped in the usua l sterile fashion. Time out was performed. Following administration of 1% lidocaine local anesthetic, a 5 [place] centesis needle catheter was percutaneously inserted into the peritoneal collection until fluid was aspirated. The catheter was advanced into the fluid collection and the needle removed. Abo ut 4100 cc of fluid was aspirated and specimen sent for appropriate cultures/cytology/cultures and cy tology. The catheter was then removed and a sterile dressing applied. No immediate complication was identified. FINDINGS: Limited ultrasound imaging demonstrates moderate ascites. Aspirated fluid was clear and ser ous. IMPRESSION: US-guided paracentesis with 4.1L removed.
--- NOTE | 2024-11-22 12:22 | DVH ---
US THORACENTESIS, HISTORY: PLEURAL EFFUSION PROCEDURE: Informed consent was obtained. The patient was seated on the bed. A limited localization u ltrasound of the right thorax was obtained, and the optimal approach was marked on the skin. The area was prepped with chlorhexidine which was allowed to dry and draped in the usual sterile fashion. Enzo e out was performed. The skin and the soft tissues were infiltrated with 1% lidocaine. A 5.5 [place] c entesis needle catheter was advanced into right pleural space. Following aspiration of fluid, the cat heter was advanced and the needle removed. About 700 cc of fluid was drained. Specimen/s was/were sen t for appropriate cultures/cytology/cultures and cytology. No immediate complication was identified. FINDINGS: Moderate right pleural effusion. Aspirated fluid is clear and serous. IMPRESSION: Successful right thoracentesis with 700 mL removed.
[2024-11-22 16:04] LABS: Body Fluid Red Blood Cells 238 CUMM (0-2000); Body Fluid White Blood Cells 155 CUMM (0-200)
[2024-11-22 16:14] LABS: Body Fluid Red Blood Cells 52 CUMM (0-2000); Body Fluid White Blood Cells 187 CUMM (0-200)
[2024-11-22] MEDS: hydrALAZINE HCL 20 MG/ML VL IV ONE (19:15)
[2024-11-23] VITALS (7 sets, daily range): BP systolic 104–117; BP diastolic 54–69; PULSE 70–94; RESP 17–19; TEMP 97.4–98.2; O2SAT 95–100
--- NOTE | 2024-11-23 11:57 | DVHPN2 ---
Subjective The patient is seen and examined at bedside. Still complain of shortness for breath. Status post paracentesis and thoracocentesis Reviewed: Care Plan, H&P, Labs, Medications, Previous Orders, Radiology Changes from previous H/P or p: No Changes General: Per HPI Eyes: No Pain, No Vision change, No Conjunctivae inflammation, No Eyelid inflammation, No Other, No Redness ENT: No Ear pain, No Ear discharge, No Nose pain, No Nose discharge, No Nose congestion, No Mouth pain, No Mouth swelling, No Throat pain, No Throat swelling, No Other Cardiovascular: No Chest Pain, No Palpitations, No Orthopnea, No Paroxysmal Noc. Dyspnea, No Edema, No Lt Headedness, No Other Respiratory: No Cough, No Dry, No Shortness of breath, No SOB with excertion, No Wheezing, No Hemoptysis, No Pleuritic Pain, No Sputum, No Other Gastrointestinal: Abdominal Pain Genitourinary: No Dysuria, No Frequency, No Incontinence, No Hematuria, No Retention, No Other Musculoskeletal: No other, No neck pain, No shoulder pain, No arm pain, No back pain, No hand pain, No leg pain, No foot pain Skin: No Rash, No Lesions, No Jaundice, No Bruising, No Other Objective Vitals Vital Signs Date Time Temp Pulse Resp B/P (MAP) Pulse Ox O2 Delivery O2 Flow Rate FiO2 11/23/24 09:00 98.1 70 18 104/54 (71) 98 98.1 11/23/24 08:00 Nasal Cannula* 2 28 Intake/Output Intake and Output 11/23/24 07:00 Intake Total 1350 ml Output Total 950 ml Balance 400 ml Intake Oral 1050 ml IV Total 300 ml Output Urine Total 950 ml # Voids 1 General Appearance: Alert, No acute distress HEENT: Atraumatic, PERRLA, EOMI, Mucous membr. moist/pink Neck: Supple Lungs: Clear to auscultation, Normal air movement Cardiovascular: Regular rate, Normal S1, Normal S2, No murmurs, Gallops, Rubs Abdomen: Normal bowel sounds, Soft, No tenderness Neuro: Cranial nerves 3-12 NL Psych/Mental Status: Mental status NL Medications Current Medications Medications Dose Ordered Sig/Jasen Route Start Time Stop Time Status Last Admin Dose Admin Nitroglycerin 0.4 mg Q5MINP PRN SL 11/19/24 18:15 Morphine Sulfate 2 mg Q30M PRN IV 11/19/24 18:15 Gabapentin 100 mg TID PO 11/19/24 22:00 11/23/24 05:18 100 MG Oxycodone/ Acetaminophen 1 tab QID PO 11/19/24 22:00 11/23/24 05:18 1 TAB Furosemide 40 mg BIDD IV 11/20/24 06:00 11/23/24 05:19 40 MG Spironolactone 25 mg DAILY PO 11/20/24 10:00 11/23/24 09:07 25 MG Azithromycin 500 mg DAILY PO 11/20/24 10:00 11/23/24 08:57 500 MG Pantoprazole Sodium 40 mg DAILY@0600 PO 11/20/24 06:00 11/23/24 05:18 40 MG Piperacillin Sod/ Tazobactam Sod 100 ml @ 25 mls/hr Q8H IV 11/20/24 03:00 11/23/24 11:22 25 MLS/HR Lactulose 30 ml Q8HP PRN PO 11/21/24 07:15 Levothyroxine Sodium 100 mcg QAM@0600 PO 11/22/24 06:00 11/23/24 05:21 100 MCG Levothyroxine Sodium 25 mcg QAM@0600 PO 11/22/24 06:00 11/23/24 05:20 25 MCG Laboratory Results Laboratory Tests 11/19/24 15:03 11/19/24 18:55 Urinalysis Test 11/19/24 19:42 Urine Color Dark-yellow (Yellow) Urine Clarity Clear (Clear) Urine pH 6.0 (5.0-9.0) Urine Specific [place] 1.016 (1.001-1.035) Urine Protein Trace (Negative) H Urine Ketones Negative (Negative) Urine Blood Trace /uL (Negative) H Urine Nitrite Negative (Negative) Urine Bilirubin Negative (Negative) Urine Urobilinogen Normal mg/dL (Negative) Urine Leukocyte Esterase Negative /uL (Negative) Urine RBC 9 /hpf (0 - 3) Urine Microscopic WBC 2 /HPF (0-3) Urine Squamous Epithelial Cells Few /hpf (<5) Urine Bacteria None seen /hpf (None Seen) Urine Glucose Normal mg/dL (Normal) Microbiology Microbiology Date/Time Source Procedure Growth Status 11/22/24 10:35 Pleural Fluid Received 11/19/24 18:55 Blood Blood Culture - Preliminary NO GROWTH AFTER 72 HOURS OF INCUBATION. 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 Hypertension Chronic back pain Plan. -continue on 2 L oxygen via nasal cannula, pending respiratory culture. CT scan of abdomen chest showed left pleural effusion, chest x-ray questionable right- sided pleural effusion, moderate amount of ascites with nodular appearance of liver cirrhosis. Waiting for IR for thoracocentesis, left chest -IV Lasix 40 mg b.i.d, albumin 12.5 g 25% once. -spironolactone 20 mg p.o. daily -continue to monitor urine output -radiology consultation for thoracentesis and paracentesis -pending iron panel, likely microcytic anemia related to folic or B12 deficiency. Pending folic and B12 level. -IV antibiotic with Zosyn and azithromycin -pain management with oxycodone, morphine as needed. -PUD prophylaxis with Protonix -DVT prophylaxis with SCD Status post paracentesis and thoracocentesis. Discuss with family son and daughter they one to see if we can place the PleurX and they will get the patient home with hospice. I request family to ask the hospice agency that have been in contact with them to see if they capable of handle PleurX at home. If they can I will consult IR to place PleurX and plan to discharge. 11/23: Discussed with daughter at bedside. Apparently the hospice agency that patient plan to use does provide the vacuum bottle for paracentesis. So I am going to consult interventional radiologist for placement of PleurX. Discussed in length with daughter regarding to plan of care. One daughter as a lot of questions about his liver cirrhosis. I explained to her in length. This medical document was created using an electronic medical record system with [employer] direct computerized dictation system. Although this document has been carefully reviewed, there may still be some phonetic and typographical errors. These areas are purely typographical due to imperfections of the software programs, and do not reflect any compromise in the patient's medical care. Plan discussed with: Patient, Daughter My Orders Orders - NADIA NEGRON MD Procedure Category Date Status Time * Radiologist Consult CONS 11/23/24 Transmitted 10:55 Date of Service: Nov 23, 2024 Billing Provider: NADIA NEGRON MD Common Visit Codes: [id number] INP/OBS CARE(HIGH) NADIA NEGRON MD Nov 23, 2024 11:57
[2024-11-23] MEDS: LACTULOSE 20Gm/30ML SOLN PO SCH (15:06)
--- NOTE | 2024-11-23 15:29 | DVH ---
Right Chest Sonogram Date: 11/23/2024 03:18 PM Clinical history: FLUID CHECK FOR POSSIBLE PLEURX CATHETER PLACEMENT Findings: Limited sonographic evaluation of the right chest was performed to localize and meño fluid for thora centesis. Small right pleural effusion IMPRESSION: Small right pleural effusion END IMPRESSION:
[2024-11-24] VITALS (12 sets, daily range): BP systolic 101–133; BP diastolic 61–77; PULSE 65–85; RESP 12–20; TEMP 97.3–98.5; O2SAT 97–100
[2024-11-24] MEDS: fentaNYL CITRATE 100 MCG/2 ML VL ONE (09:22)
[2024-11-24] MEDS: MIDAZOLAM HCL 2MG/2ML 2ml VIAL (1mg/ml) ONE (09:22)
[2024-11-24] MEDS: LIDOCAINE 2%HCL (LOCAL ANESTH.) INJ 20ML MDV ONE (09:22)
--- NOTE | 2024-11-24 11:37 | DVHPN2 ---
Subjective The patient is seen and examined at bedside. Still complain of shortness for breath. Status post paracentesis and thoracocentesis. Waiting for pleurex placement today. Reviewed: Care Plan, H&P, Labs, Medications, Previous Orders, Radiology Changes from previous H/P or p: No Changes General: Per HPI Eyes: No Pain, No Vision change, No Conjunctivae inflammation, No Eyelid inflammation, No Other, No Redness ENT: No Ear pain, No Ear discharge, No Nose pain, No Nose discharge, No Nose congestion, No Mouth pain, No Mouth swelling, No Throat pain, No Throat swelling, No Other Cardiovascular: No Chest Pain, No Palpitations, No Orthopnea, No Paroxysmal Noc. Dyspnea, No Edema, No Lt Headedness, No Other Respiratory: No Cough, No Dry, No Shortness of breath, No SOB with excertion, No Wheezing, No Hemoptysis, No Pleuritic Pain, No Sputum, No Other Gastrointestinal: Abdominal Pain Genitourinary: No Dysuria, No Frequency, No Incontinence, No Hematuria, No Retention, No Other Musculoskeletal: No other, No neck pain, No shoulder pain, No arm pain, No back pain, No hand pain, No leg pain, No foot pain Skin: No Rash, No Lesions, No Jaundice, No Bruising, No Other Objective Vitals Vital Signs Date Time Temp Pulse Resp B/P (MAP) Pulse Ox O2 Delivery O2 Flow Rate FiO2 11/24/24 09:00 97.7 78 17 113/61 (78) 98 97.7 11/23/24 20:00 Nasal Cannula* 2 28 Intake/Output Intake and Output 11/24/24 07:00 Intake Total 650 ml Output Total 1150 ml Balance -500 ml Intake Oral 450 ml IV Total 200 ml Output Urine Total 450 ml Stool Total 700 ml General Appearance: Alert, No acute distress HEENT: Atraumatic, PERRLA, EOMI, Mucous membr. moist/pink Neck: Supple Lungs: Clear to auscultation, Normal air movement Cardiovascular: Regular rate, Normal S1, Normal S2, No murmurs, Gallops, Rubs Abdomen: Normal bowel sounds, Soft, No tenderness Neuro: Cranial nerves 3-12 NL Psych/Mental Status: Mental status NL Medications Current Medications Medications Dose Ordered Sig/Jasen Route Start Time Stop Time Status Last Admin Dose Admin Nitroglycerin 0.4 mg Q5MINP PRN SL 11/19/24 18:15 Morphine Sulfate 2 mg Q30M PRN IV 11/19/24 18:15 Gabapentin 100 mg TID PO 11/19/24 22:00 11/24/24 06:14 100 MG Oxycodone/ Acetaminophen 1 tab QID PO 11/19/24 22:00 11/24/24 06:15 1 TAB Furosemide 40 mg BIDD IV 11/20/24 06:00 11/24/24 06:16 40 MG Spironolactone 25 mg DAILY PO 11/20/24 10:00 11/23/24 09:07 25 MG Azithromycin 500 mg DAILY PO 11/20/24 10:00 11/23/24 08:57 500 MG Pantoprazole Sodium 40 mg DAILY@0600 PO 11/20/24 06:00 11/24/24 06:14 40 MG Piperacillin Sod/ Tazobactam Sod 100 ml @ 25 mls/hr Q8H IV 11/20/24 03:00 11/24/24 03:00 25 MLS/HR Lactulose 30 ml Q8HP PRN PO 11/21/24 07:15 Levothyroxine Sodium 100 mcg QAM@0600 PO 11/22/24 06:00 11/24/24 06:15 100 MCG Levothyroxine Sodium 25 mcg QAM@0600 PO 11/22/24 06:00 11/24/24 06:15 25 MCG Lactulose 30 ml Q8HR PO 11/23/24 14:00 11/24/24 06:14 30 ML Laboratory Results Laboratory Tests 11/19/24 15:03 11/19/24 18:55 Urinalysis Test 11/19/24 19:42 Urine Color Dark-yellow (Yellow) Urine Clarity Clear (Clear) Urine pH 6.0 (5.0-9.0) Urine Specific [place] 1.016 (1.001-1.035) Urine Protein Trace (Negative) H Urine Ketones Negative (Negative) Urine Blood Trace /uL (Negative) H Urine Nitrite Negative (Negative) Urine Bilirubin Negative (Negative) Urine Urobilinogen Normal mg/dL (Negative) Urine Leukocyte Esterase Negative /uL (Negative) Urine RBC 9 /hpf (0 - 3) Urine Microscopic WBC 2 /HPF (0-3) Urine Squamous Epithelial Cells Few /hpf (<5) Urine Bacteria None seen /hpf (None Seen) Urine Glucose Normal mg/dL (Normal) Microbiology Microbiology Date/Time Source Procedure Growth Status 11/22/24 10:35 Pleural Fluid Gram Stain - Final Resulted 11/22/24 10:35 Pleural Fluid Body Fluid Culture - Preliminary Resulted 11/19/24 18:55 Blood Blood Culture - Preliminary NO GROWTH AFTER 72 HOURS OF INCUBATION. 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 Hypertension Chronic back pain Plan. -continue on 2 L oxygen via nasal cannula, pending respiratory culture. CT scan of abdomen chest showed left pleural effusion, chest x-ray questionable right- sided pleural effusion, moderate amount of ascites with nodular appearance of liver cirrhosis. -IV Lasix 40 mg b.i.d, albumin 12.5 g 25% once. -spironolactone 20 mg p.o. daily -continue to monitor urine output -radiology consultation for thoracentesis and paracentesis done. WENDY Johnson IR today. Will place pleurex -pending iron panel, likely microcytic anemia related to folic or B12 deficiency. Pending folic and B12 level. -IV antibiotic with Zosyn and azithromycin -pain management with oxycodone, morphine as needed. -PUD prophylaxis with Protonix -DVT prophylaxis with SCD Status post paracentesis and thoracocentesis. Discuss with family son and daughter they one to see if we can place the PleurX and they will get the patient home with hospice. I request family to ask the hospice agency that have been in contact with them to see if they capable of handle PleurX at home. If they can I will consult IR to place PleurX and plan to discharge. 11/23: Discussed with daughter at bedside. Apparently the hospice agency that patient plan to use does provide the vacuum bottle for paracentesis. So I am going to consult interventional radiologist for placement of PleurX. Discussed in length with daughter regarding to plan of care. One daughter as a lot of questions about his liver cirrhosis. I explained to her in length. 11/24: WENDY Johnson. Pleurex will be place today. flying squad worker consult for dc with hospice. This medical document was created using an electronic medical record system with [employer] direct computerized dictation system. Although this document has been carefully reviewed, there may still be some phonetic and typographical errors. These areas are purely typographical due to imperfections of the software programs, and do not reflect any compromise in the patient's medical care. Plan discussed with: Patient My Orders Orders - NADIA NEGRON MD Procedure Category Date Status Time Code Status CODE 11/23/24 Transmitted 12:18 Pt Request For Service PT 11/23/24 Logged 12:18 Lactulose Oral PHA 11/23/24 In Process 14:00 * Wound Consult CONS 11/24/[address] FELDER 11/24/24 Taken 11:21 Date of Service: Nov 24, 2024 Billing Provider: NADIA NEGRON MD Common Visit Codes: [id number] INP/OBS CARE(HIGH) NADIA NEGRON MD Nov 24, 2024 11:37
--- NOTE | 2024-11-24 19:35 | DVH ---
EMERITA REARDON DR[address] HISTORY: INSERTION OF PLEURX DRAIN for abdominal ascites to be for Hospice care. PROCEDURE: Informed consent was obtained. Patient was positioned supine on the interventional table. A limited ultrasound of the left lower quadrant was performed. The LLQ was prepped with chlorhexidine which was allowed to dry and draped in sterile fashion. Time out was performed. The entry site was i nfiltrated with 1% lidocaine. The peritoneal cavity was accessed using a centesis needle sheath and a wire coiled in the fluid. An about 7-10 cm subcutaneous tract from the upper outer quadrant was infi ltrated with Lidocaine . A 15.5 [place] PleurX drain was tunneled subcutaneously. The peritoneal entry site was serially dilated up to a 16 [place] peel-away sheath. The drain was advanced through the she ath as it was removed. Catheter position was confirmed by return of fluid and fluoroscopic imaging. A total of 1000 mL clear serous fluid was aspirated. The catheter was sutured to the skin surface and the peritoneal entry site closed with 3-0 Vicryl and sealed with Dermabond. No immediate complication was identified. Air Kerma 3 mGy FLUOROSCOPY TIME: 2 minutes. SEDATION: Dr. Srinath Johnson was personally responsible for the administration of moderate sedation during the procedure performed, including the use of an independent trained observer who had no other duties during the procedure. The drugs utilized were IV fentanyl and versed (see nursing log for details). The total time of supervision by the attending physician was approximately 30 minutes. FINDINGS: Initial ultrasound image demonstrates small ascites. Post-placement images shows the cathet er extending across the peritoneal cavity with the tip in the pelvis. IMPRESSION: Placement of 15.5 Fr PleurX tunneled drain for recurrent ascites.
[2024-11-25 05:00] VITALS: BP 107/61; PULSE 86; RESP 19; TEMP 97.9; O2SAT 94
[2024-11-25 08:00] VITALS: PULSE 79; RESP 18
--- NOTE | 2024-11-25 11:18 | DVHPN2 ---
Subjective The patient is seen and examined at bedside. Still complain of shortness for breath. Status post paracentesis and thoracocentesis. Waiting for pleurex placement today. Reviewed: Care Plan, H&P, Labs, Medications, Previous Orders, Radiology General: Per HPI Eyes: No Pain, No Vision change, No Conjunctivae inflammation, No Eyelid inflammation, No Other, No Redness ENT: No Ear pain, No Ear discharge, No Nose pain, No Nose discharge, No Nose congestion, No Mouth pain, No Mouth swelling, No Throat pain, No Throat swelling, No Other Cardiovascular: No Chest Pain, No Palpitations, No Orthopnea, No Paroxysmal Noc. Dyspnea, No Edema, No Lt Headedness, No Other Respiratory: No Cough, No Dry, No Shortness of breath, No SOB with excertion, No Wheezing, No Hemoptysis, No Pleuritic Pain, No Sputum, No Other Gastrointestinal: Abdominal Pain Genitourinary: No Dysuria, No Frequency, No Incontinence, No Hematuria, No Retention, No Other Musculoskeletal: No other, No neck pain, No shoulder pain, No arm pain, No back pain, No hand pain, No leg pain, No foot pain Skin: No Rash, No Lesions, No Jaundice, No Bruising, No Other Objective Vitals Vital Signs Date Time Temp Pulse Resp B/P (MAP) Pulse Ox O2 Delivery O2 Flow Rate FiO2 11/25/24 06:15 107/61 11/25/24 05:00 97.9 86 19 94 97.9 11/24/24 20:00 Nasal Cannula* 1 24 Intake/Output Intake and Output 11/25/24 07:00 Intake Total 1020 ml Output Total 150 ml Balance 870 ml Intake Oral 720 ml IV Total 300 ml Output Urine Total 150 ml # Voids 2 General Appearance: Alert, No acute distress HEENT: Atraumatic, PERRLA, EOMI, Mucous membr. moist/pink Neck: Supple Lungs: Clear to auscultation, Normal air movement Cardiovascular: Regular rate, Normal S1, Normal S2, No murmurs, Gallops, Rubs Abdomen: Normal bowel sounds, Soft, No tenderness Neuro: Cranial nerves 3-12 NL Psych/Mental Status: Mental status NL Medications Current Medications Medications Dose Ordered Sig/Jsaen Route Start Time Stop Time Status Last Admin Dose Admin Nitroglycerin 0.4 mg Q5MINP PRN SL 11/19/24 18:15 Morphine Sulfate 2 mg Q30M PRN IV 11/19/24 18:15 Gabapentin 100 mg TID PO 11/19/24 22:00 11/25/24 06:18 100 MG Oxycodone/ Acetaminophen 1 tab QID PO 11/19/24 22:00 11/25/24 06:19 1 TAB Furosemide 40 mg BIDD IV 11/20/24 06:00 11/25/24 06:15 40 MG Spironolactone 25 mg DAILY PO 11/20/24 10:00 11/25/24 10:24 25 MG Azithromycin 500 mg DAILY PO 11/20/24 10:00 11/25/24 10:24 500 MG Pantoprazole Sodium 40 mg DAILY@0600 PO 11/20/24 06:00 11/25/24 06:19 40 MG Piperacillin Sod/ Tazobactam Sod 100 ml @ 25 mls/hr Q8H IV 11/20/24 03:00 11/25/24 10:26 25 MLS/HR Lactulose 30 ml Q8HP PRN PO 11/21/24 07:15 Levothyroxine Sodium 100 mcg QAM@0600 PO 11/22/24 06:00 11/25/24 06:19 100 MCG Levothyroxine Sodium 25 mcg QAM@0600 PO 11/22/24 06:00 11/25/24 06:19 25 MCG Lactulose 30 ml Q8HR PO 11/23/24 14:00 11/25/24 06:18 30 ML Laboratory Results Laboratory Tests 11/19/24 15:03 11/19/24 18:55 Urinalysis Test 11/19/24 19:42 Urine Color Dark-yellow (Yellow) Urine Clarity Clear (Clear) Urine pH 6.0 (5.0-9.0) Urine Specific [place] 1.016 (1.001-1.035) Urine Protein Trace (Negative) H Urine Ketones Negative (Negative) Urine Blood Trace /uL (Negative) H Urine Nitrite Negative (Negative) Urine Bilirubin Negative (Negative) Urine Urobilinogen Normal mg/dL (Negative) Urine Leukocyte Esterase Negative /uL (Negative) Urine RBC 9 /hpf (0 - 3) Urine Microscopic WBC 2 /HPF (0-3) Urine Squamous Epithelial Cells Few /hpf (<5) Urine Bacteria None seen /hpf (None Seen) Urine Glucose Normal mg/dL (Normal) Microbiology Microbiology Date/Time Source Procedure Growth Status 11/22/24 10:35 Pleural Fluid Gram Stain - Final Resulted 11/22/24 10:35 Pleural Fluid Body Fluid Culture - Preliminary Resulted 11/19/24 18:55 Blood Blood Culture - Final NO GROWTH AFTER 5 DAYS OF INCUBATION. 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 Hypertension Chronic back pain Plan. -continue on 2 L oxygen via nasal cannula, pending respiratory culture. CT scan of abdomen chest showed left pleural effusion, chest x-ray questionable right- sided pleural effusion, moderate amount of ascites with nodular appearance of liver cirrhosis. -IV Lasix 40 mg b.i.d, albumin 12.5 g 25% once. -spironolactone 20 mg p.o. daily -continue to monitor urine output -radiology consultation for thoracentesis and paracentesis done. [facility] Johnson IR today. Will place pleurex -pending iron panel, likely microcytic anemia related to folic or B12 deficiency. Pending folic and B12 level. -IV antibiotic with Zosyn and azithromycin -pain management with oxycodone, morphine as needed. -PUD prophylaxis with Protonix -DVT prophylaxis with SCD Status post paracentesis and thoracocentesis. Discuss with family son and daughter they one to see if we can place the PleurX and they will get the patient home with hospice. I request family to ask the hospice agency that have been in contact with them to see if they capable of handle PleurX at home. If they can I will consult IR to place PleurX and plan to discharge. 11/23: Discussed with daughter at bedside. Apparently the hospice agency that patient plan to use does provide the vacuum bottle for paracentesis. So I am going to consult interventional radiologist for placement of PleurX. Discussed in length with daughter regarding to plan of care. One daughter as a lot of questions about his liver cirrhosis. I explained to her in length. 11/24: WENDY Johnson. Pleurex will be place today. farmworker pullet farm consult for dc with hospice. This medical document was created using an electronic medical record system with [employer] direct computerized dictation system. Although this document has been carefully reviewed, there may still be some phonetic and typographical errors. These areas are purely typographical due to imperfections of the software programs, and do not reflect any compromise in the patient's medical care. My Orders Orders - NADIA NEGRON MD Procedure Category Date Status Time Percutaneous Pl. Dr. FELDER 11/24/24 Resulted 11:21 * Fuel Pilot Engineer CONS 11/24/24 Transmitted Consult * Dietary Consult CONS 11/24/24 Transmitted 18:17 NADIA NEGRON MD Nov 25, 2024 11:18
[2024-11-25] MEDS ORDERED: SPIR25TA PO (11:42)
[2024-11-25] MEDS ORDERED: LEVO125T7 PO (11:42)
[2024-11-25] MEDS ORDERED: FURO20TA3 PO (11:42)
[2024-11-25] MEDS ORDERED: AUG875T PO (11:42)
[2024-11-25] MEDS ORDERED: LACT10SO3 PO (11:42)
--- NOTE | 2024-11-25 11:44 | DVHDS2 ---
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 Hypertension Chronic back pain Labs/Diagnostic Data: Laboratory Results Test 11/22/24 10:35 11/21/24 13:31 11/20/24 16:30 11/20/24 06:07 Body Fluid Source Pleural fluid Body Fluid pH 8.0 Body Fluid WBC (Manual) 187 CUMM (0-200) Body Fluid RBC (Manual) 52 CUMM (0-2000) Body Fluid Mononuclear Cells 75 % Body Fluid Polymorphonuclear Cells 25 % (0-25) Thyroid Stimulating Hormone (TSH) 72.13 uIU/mL (0.55-4.78) Free Thyroxine (T4) Calculated 0.48 ng/dL (0.89-1.76) Ammonia 42 umol/L (11-32) B-Type Natriuretic Peptide 416.20 pg/mL (0-100) Test 11/19/24 21:05 11/19/24 20:50 11/19/24 19:42 11/19/24 18:55 Erythrocyte Sedimentation Rate 34 mm/hr (0-20) Influenza Type A Antigen Negative (Negative) Influenza Type B Antigen Negative (Negative) SARS-CoV-2 Antigen (Rapid) Negative (NEGATIVE) Urine Color Dark-yellow (Yellow) Urine Clarity Clear (Clear) Urine pH 6.0 (5.0-9.0) Urine Specific [place] 1.016 (1.001-1.035) Urine Protein Trace (Negative) Urine Ketones Negative (Negative) Urine Blood Trace /uL (Negative) Urine Nitrite Negative (Negative) Urine Bilirubin Negative (Negative) Urine Urobilinogen Normal mg/dL (Negative) Urine Leukocyte Esterase Negative /uL (Negative) Urine RBC 9 /hpf (0 - 3) Urine Microscopic WBC 2 /HPF (0-3) Urine Squamous Epithelial Cells Few /hpf (<5) Urine Bacteria None seen /hpf (None Seen) Urine Glucose Normal mg/dL (Normal) Sodium Level 131 mmol/L (136-145) Potassium Level 3.9 mmol/L (3.5-5.1) Chloride Level 101 mmol/L (98-107) Carbon Dioxide Level 23 mmol/L (20-31) Anion Gap 7 (5-15) Blood Urea Nitrogen 18 mg/dL (9-23) Creatinine 1.29 mg/dL (0.700-1.30) Glomerular Filtration Rate Calc 56 mL/min (>90) BUN/Creatinine Ratio 14.0 (10.0-20.0) Serum Glucose 113 mg/dL (74-106) Calcium Level 7.8 mg/dL (8.7-10.4) Total Bilirubin 0.6 mg/dL (0.2-1.0) Aspartate Amino Transferase (AST) 37 U/L (13-40) Alanine Aminotransferase (ALT) 14 U/L (7-40) Alkaline Phosphatase 119 U/L (46-116) Total Protein 5.9 g/dL (5.7-8.2) Albumin 2.3 g/dL (3.2-4.8) Test 11/19/24 15:03 White Blood Count 5.5 10^3/uL (4.4-10.8) Red Blood Count 2.71 10^6/uL (4.5-5.90) Hemoglobin 9.4 g/dL (13.5-17.5) Hematocrit 27.4 % (41.0-53.0) Mean Corpuscular Volume 101.1 fL (80.0-100.0) Mean Corpuscular Hemoglobin 34.7 pg (28.0-32.0) Mean Corpuscular Hemoglobin Concent 34.3 g/dL (32.0-36.0) Red Cell Distribution Width 20.7 % (11.8-14.3) Platelet Count 193 10^3/uL (140-450) Mean Platelet Volume 7.4 fL (6.9-10.8) Neutrophils (%) (Auto) 51.1 % (37.0-80.0) Lymphocytes (%) (Auto) 31.0 % (10.0-50.0) Monocytes (%) (Auto) 14.9 % (0.0-12.0) Eosinophils (%) (Auto) 2.1 % (0.0-7.0) Basophils (%) (Auto) 0.9 % (0.0-2.0) Neutrophils # (Auto) 2.8 10 ^3/uL (1.6-8.6) Lymphocytes # (Auto) 1.7 10 ^3/uL (0.4-5.4) Monocytes # (Auto) 0.8 10 ^3/uL (0-1.3) Eosinophils # (Auto) 0.1 10 ^3/uL (0-0.8) Basophils # (Auto) 0.1 10 ^3/uL (0-0.2) Nucleated Red Blood Cells 0.1 % Prothrombin Time 11.9 sec (9.3-11.8) Prothrombin Time INR 1.14 (0.9-1.15) Activated Partial Thromboplast Time 36.5 SEC (24.5-34.5) Iron Level 37 ug/dL (65-175) Total Iron Binding Capacity 141 ug/dL (250-425) Percent Iron Saturation 26.2 % (20-55) Troponin I High Sensitivity 6 ng/L (</=54) Vitamin B12 Level 774 pg/mL (211-911) Folic Acid 27.32 ng/mL (>5.38) Other Laboratory Tests 11/19/24 18:55 11/19/24 15:03 Brief Hx & Hospital Course: This is an 79 years old male with past medical history of colon cancer status post eight chemotherapy, liver cirrhosis, hepatitis-C infection, hypertension, dyslipidemia status post colostomy came to emergency department because of weakness, lost appetite, worsening right upper extremity swelling and abdominal distention. Per family the patient had been bed-bound however he change in his mental status one day prior to admission. He become very confused and did not recognize family member. The patient was found to have Gram-positive pneumonia and also pleural effusions and ascites. Per family member the patient ascites is worsening. The patient required more frequent paracentesis and more trip to the hospital for that. The patient was admitted. The patient was put on IV antibiotic with Zosyn and Zithromax. The patient has thoracocentesis and paracentesis done in the hospital. He become more comfortable and more alert awake in a couple days after treatment. After a lengthy discussion with family, the family decided to take the patient home with hospice. The patient had requests to has a PleurX placed in his abdomen for paracentesis at home to prevent multiple trips to the hospital. We discussed with hospice agency and they were able to provide a vaccum bottle from paracentesis at home I consult interventional radiologist in placed a PleurX. After procedure done, patient doing well. I will discharge the patient home with hospice protocol. Activity as tolerated. Diet per home diet. Follow up with primary care physician 1-2 weeks. Physical exam: HEENT: Normocephalic atraumatic pupils equal react to light and accommodation. Extraocular muscles intact, conjunctiva pink, oropharynx moist, no thrush, no exudate. Lymphatic: No lymphadenopathy Cardiovascular exam: S1, S2 was heard. No murmurs, rubs, gallops Lung: Clear on auscultation bilaterally, no wheeze, rale, rhonchi. GI: Abdominal soft, nondistended, nontenderness, positive bowel sounds. Extremity: No crepitus, cyanosis, edema. Pedal pulses present bilateral. Full range of motion. Skin: Normal turgor, no rash. Psych: Alert, awake. Neurology: Chronic bed bound. 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 Hypertension Chronic back pain Discharge Disposition: Hospice - Home Discharge Instruct/Medications Diet: Consistent carbohydrate, Cardiac 2g Na,low cholest Activity: No Restrictions, As Tolerated Follow Up/Referral: PCP 1-2 WEEKS Medications: SEE MED LIST Discharge Statement: "Patient was advised to return to the ER or call 911 if any headaches, dizziness, shortness of breath, chest pain, abdominal pain, bleeding, fevers, or worsening of medical condition. Patient was counseled about treatment plan, medications, possible side effects, patientverbalized understanding. All questions were answered to the best of my ability. This discharge took greater then 30 minutes in planning, reviewing documentation, counseling the patient, and discussing with other team members." ASSESSMENT ASSESSMENT Assessment ASCITES AND PLEURAL EFFUSION Date of Service: Nov 25, 2024 Billing Provider: NADIA NEGRON MD Common Visit Codes: 89688-NVN/OBS DISCH DAY >30min NADIA NEGRON MD Nov 25, 2024 11:44
[2024-11-25 13:00] VITALS: BP_SYST 105; BP_SYST 99; BP_DIAS 56; BP_DIAS 63; PULSE 80; RESP 17; TEMP 97.4; O2SAT 100; O2SAT 96
[2024-11-25 17:00] VITALS: BP 103/65; PULSE 79; RESP 17; TEMP 97.8; O2SAT 98
== END 2024-11-25 19:35 | disposition hospice, home (50) | DRG 432 ==
LOC: EDBD 14:47 → ER 14:47 → OVERFLOW 18:10 → TELE-CENTR 20:05
PROVIDERS: ADMIT Internal Medicine; ATTEND Internal Medicine
PROC: 0W993ZX Drainage of Right Pleural Cavity, Percutaneous Approach, Diagnostic (ICD-10-PCS; principal; 2024-11-22)
PROC: 0W9G3ZX Drainage of Peritoneal Cavity, Percutaneous Approach, Diagnostic (ICD-10-PCS; 2024-11-22)
PROC: 0W9G30Z Drainage of Peritoneal Cavity with Drainage Device, Percutaneous Approach (ICD-10-PCS; 2024-11-24)
DX: K74.60 Unspecified cirrhosis of liver (principal); E43 Unspecified severe protein-calorie malnutrition; G93.41 Metabolic encephalopathy; J96.00 Acute respiratory failure, unspecified whether with hypoxia or hypercapnia; J15.9 Unspecified bacterial pneumonia; R18.8 Other ascites; J91.8 Pleural effusion in other conditions classified elsewhere; Z51.5 Encounter for palliative care; I10 Essential (primary) hypertension; G89.29 Other chronic pain; E11.9 Type 2 diabetes mellitus without complications; Z79.2 Long term (current) use of antibiotics; Z79.899 Other long term (current) drug therapy; Z85.038 Personal history of other malignant neoplasm of large intestine; Z92.21 Personal history of antineoplastic chemotherapy; Z68.27 Body mass index [BMI] 27.0-27.9, adult
CPT/HCPCS: 32555; 36415; 49083; 70450; 71045; 74176; 76604; 76705; 76942; 80048; 80053; 81001; 82140; 82607; 82746; 83540; 83550; 83880; 83986; 84439; 84443; 84484; 85025; 85610; 85652; 85730; 87040; 87205; 87426; 87804; 89051; 93005; 93971; 96365; 96375; 97162; 99152; G0378; J2250; J2543